=== PATIENT | male | born 1930 | race Caucasian/White ===

== ENCOUNTER 2016-06-27 20:12 | Emergency (ER) | payer MEDICARE ==
[~2016-06-27] VITALS: Ht 179.1 cm; Wt 88.4 kg
[~2016-06-27 20:12] MED LIST: ASPI325T PO; CLOP75 PO; FENO145T2 PO; GLUC10TA3 PO; HYDR-3129 PO; ISOS30TA3 PO; LISI-357 PO; METO50TA PO; OCUV PO; OMEP20CA5 PO; ROSU20 PO; STOO100C PO; TAMS0.4C67 PO; TRAD5TAB PO; VENL-37 PO; [UNRECOGNIZED DRUG - CODE] PO
[2016-06-27 20:21] VITALS: BP 110/75; PULSE 87; RESP 16; TEMP 97.8; O2SAT 95
[2016-06-27] MEDS ORDERED: TAMS0.4C4 PO (21:25)
[2016-06-27] MEDS ORDERED: VENL37.5 PO (21:25)
[2016-06-27] MEDS ORDERED: ENTA1TAB PO (21:25)
[2016-06-27] MEDS ORDERED: SINE25TA PO (21:25)
[2016-06-27] MEDS ORDERED: ASPI325T PO (21:25)
[2016-06-27] MEDS ORDERED: PRIL20CA9 PO (21:25)
[2016-06-27] MEDS ORDERED: ROSU20 PO (21:25)
[2016-06-27] MEDS ORDERED: PLAV75TA29 PO (21:25)
[2016-06-27] MEDS ORDERED: GLIP10TA6 PO (21:25)
[2016-06-27] MEDS ORDERED: ISOS30TA3 PO (21:25)
[2016-06-27] MEDS ORDERED: TRAD5TAB PO (21:25)
[2016-06-27] MEDS ORDERED: METO50TA PO (21:25)
[2016-06-27] MEDS ORDERED: LISI-519 PO (21:25)
[2016-06-27] MEDS ORDERED: FENO145T2 PO (21:25)
[2016-06-27] MEDS ORDERED: PERC5TAB12 PO (21:28)
[2016-06-27] MEDS ORDERED: LIDOCAINE HCL 5% PATCH T-DERMAL ONE (21:30)
[2016-06-27] MEDS ORDERED: LIDO5DIS35 TOPICAL (21:47)
--- NOTE | 2016-06-27 21:48 | PD ---
HPI Chief Complaint: Back/ Neck Pain or Injury Time Seen by Provider: 21:29 Travel History International Travel<30 days: No Contact w/Intl Traveler<30days: No Traveled to known affect area: No History of Present Illness HPI Patient is an 86-year-old male presenting to emergency department for evaluation of right sciatica pain. Patient states this has been ongoing for 2 weeks since he laid flat on his pool deck with his legs in the pool, when he went to get up he pulled his back. Since that time the pain radiates down the back of his right leg. He has not been to his primary doctor for this problem. He denies any other complaints at this time. He has been taking acetaminophen occasionally throughout the course of the last 2 weeks with little improvement in his symptoms. Patient denies any weakness in his legs, no bladder or bowel continence or saddle paresthesia. PFSH Past Medical History Hx Anticoagulant Therapy: Yes (PLAVIX) Arthritis: No Asthma: No Autoimmune Disease: No Heart Rhythm Problems: No Cancer: No Cardiac Catheterization: Yes Cardiovascular Problems: Yes ([place], VALVE REPLACEMENT/ CABG) High Cholesterol: Yes Chemotherapy: No Chest Pain: Yes Congestive Heart Failure: Yes COPD: Yes Cerebrovascular Accident: No Coronary Artery Disease: Yes Diabetes: Yes Patient Takes Glucophage: No Diminished Hearing: Yes ([place]) Endocrine: Yes Gastrointestinal Disorders: Yes (GERD) GERD: No Genitourinary: Yes Headaches: No Hiatal Hernia: No Hypertension: Yes Immune Disorder: No Kidney Stones: No Medical other: No Musculoskeletal: Yes ( DDD) Neurologic: Yes (VERTIGO) Psychiatric: No Reproductive: No Respiratory: Yes (MESOTHELIOMA/ THORACENTESIS (X3), SOB) Migraines: No Radiation Therapy: No Renal Failure: No Seizures: No Sleep Apnea: Yes Thyroid Disease: No Ulcer: No Past Surgical History Abdominal Surgery: No AICD: No Body Medical Devices: BOVINE VALVE Cardiac Surgery: Yes (TRIPLE BYPASS, AORTIC VALVE REPLACEMENT 2010) Coronary Artery Bypass Graft: Yes (3 VESSELS) Ear Surgery: No Endocrine Surgery: No Eye Surgery: No Genitourinary Surgery: No Gynecologic Surgery: No Joint Replacement: No Neurologic Surgery: No Oral Surgery: Yes (TONSILLECTOMY, TOOTH INPLANT 2011) Pacemaker: No Thoracic Surgery: No Other Surgery: Yes Social History Alcohol Use: No Tobacco Use: No Substance Use: No Allergies-Medications (Allergen,Severity, Reaction): Coded Allergies: No Known Allergies (Unverified , 06/27/16) Reported Meds & Prescriptions Reported Meds & Active Scripts Active Percocet (Oxycodone-Acetaminophen) 5-325 mg Tab 1 Tab PO Q6H PRN Reported Entacapone 200 Mg Tab 200 Mg PO TID administered concomitantly with each levodopa/carbidopa dose Sinemet (Carbidopa-Levodopa) 25-100 Mg Tab 1 Tab PO Q8HR Tradjenta (Linagliptin) 5 Mg Tab 5 Mg PO DAILY Lisinopril 5 Mg Tab 5 Mg PO DAILY Tamsulosin (Tamsulosin HCl) 0.4 Mg Cap 0.4 Mg PO HS Crestor (Rosuvastatin Calcium) 20 Mg Tab 20 Mg PO DAILY Aspirin 325 Mg Tab 325 Mg PO DAILY Isosorbide Mononitrate ER (Isosorbide Mononitrate) 30 Mg Ezekiel 30 Mg PO DAILY Effexor (Venlafaxine HCl) 37.5 Mg Tab 37.5 Mg PO Q12H Metoprolol Tartrate 50 Mg Tab 50 Mg PO BID Plavix (Clopidogrel Bisulfate) 75 Mg Tab 75 Mg PO DAILY Glipizide 10 Mg Tab 10 Mg PO BIDAC Take 30 minutes before a meal Fenofibrate 145 Mg Tab 145 Mg PO DAILY Prilosec (Omeprazole) 20 Mg Cap 20 Mg PO DAILY Review of Systems Except as stated in HPI: all other systems reviewed are Neg Musculoskeletal: Positive: Myalgias, Cramping, Pain Physical Exam Narrative GENERAL: Well-developed, well-nourished, alert elderly gentleman. Resting comfortably in no acute distress. SKIN: Focused skin assessment warm/dry. HEAD: Atraumatic. Normocephalic. EYES: Pupils equal and round. No scleral icterus. No injection or drainage. ENT: No nasal bleeding or discharge. Mucous membranes pink and moist. NECK: Trachea midline. No JVD. CARDIOVASCULAR: Regular rate and rhythm. No murmur appreciated. RESPIRATORY: No accessory muscle use. Clear to auscultation. Breath sounds equal bilaterally. GASTROINTESTINAL: Abdomen soft, non-tender, nondistended. Hepatic and splenic margins not palpable. MUSCULOSKELETAL: No obvious deformities. No clubbing. No cyanosis. Tenderness to palpation over right SI joint, 5/5 muscle strength in bilateral lower extremities. Patient is neurovascularly intact. There is mild edema noted to the right foot, this is chronic per 's report. NEUROLOGICAL: Awake and alert. No obvious cranial nerve deficits. Motor grossly within normal limits. Normal speech. PSYCHIATRIC: Appropriate mood and affect; insight and judgment normal. Data Data Last Documented VS Vital Signs Date Time Temp Pulse Resp B/P Pulse Ox O2 Delivery O2 Flow Rate FiO2 06/27/16 20:21 97.8 87 16 110/75 95 Room Air Orders Lidocaine 5% Patch.12 Hr (Lidoderm 5% Pa (06/27/16 21:30) MDM Medical Decision Making Medical Screen Exam Complete: Yes Emergency Medical Condition: Yes Interpretation(s) Vital Signs Date Time Temp Pulse Resp B/P Pulse Ox O2 Delivery O2 Flow Rate FiO2 06/27/16 20:21 97.8 87 16 110/75 95 Room Air Differential Diagnosis Sprain versus strain versus sciatica versus discogenic pain versus other Narrative Course Patient is an 86-year-old male presenting to the emergency department for evaluation of right lower back pain. Physical examination is most consistent with sciatica. Patient is encouraged to apply warm moist heat to affected areas , he'll be given a prescription for Lidoderm patches and a short course of oral pain medications. He is encouraged follow-up Dr. Preston his primary care provider. Discussed with patient and possible physical therapy referral. He was encouraged to continue applying warm moist heat to the affected area. He was advised to avoid bed rest. He was encouraged to return to emergency department for any new or worsening symptoms. Patient verbalized understanding of these instructions. Patient is stable for discharge. Diagnosis Primary Impression: Sciatica Qualified Code: M54.31 - Sciatica of right side Referrals: Flavia Preston MD 2 days Patient Instructions: General Instructions, Sciatica (ED) Additional Instructions: Follow-up with Dr. Preston Take medications as directed Do not drive or operate machinery while taking narcotic pain medication Apply warm moist heat to the affected area Return to emergency department for any new or worsening symptoms Med/Other Pt SpecificInfo: Prescription(s) given Scripts Lidocaine Patch 12 HR (Lidoderm Patch 12 HR)5% Patch1 Patch TOPICAL DAILY PRN ( PAIN) 14 Days Ref 0 Remove patch after 12 hours Prov:Ann Liang 06/27/16 Oxycodone-Acetaminophen (Percocet)5-325 mg Tab1 Tab PO Q6H PRN (PAIN) #10 TAB Ref 0 Prov:Alona Vo MD 06/27/16 Disposition: 01 DISCHARGE HOME Condition: Stable Ann Liang Jun 27, 2016 21:48
[2016-07-06] MEDS ORDERED: MEDR4PAK PO (10:09)
[2016-07-06] MEDS ORDERED: NEUR300C PO (10:10)
[2016-07-11] MEDS ORDERED: MEDR4PAK PO (16:27)
[2016-07-13] MEDS ORDERED: OS-CTAB PO (14:02)
[2016-08-08] MEDS ORDERED: GABA300C5 PO (12:03)
[2016-08-14] MEDS ORDERED: HYDR-3533 PO (12:40)
== END 2016-06-27 21:55 | disposition home or self-care (01) ==
LOC: PHEFT 20:12
DX: M54.31 Sciatica, right side (principal); E11.9 Type 2 diabetes mellitus without complications; I10 Essential (primary) hypertension; E78.00 Pure hypercholesterolemia, unspecified; H91.90 Unspecified hearing loss, unspecified ear; Z79.01 Long term (current) use of anticoagulants; Z79.84 Long term (current) use of oral hypoglycemic drugs; Z86.79 Personal history of other diseases of the circulatory system; Z87.09 Personal history of other diseases of the respiratory system; Z87.19 Personal history of other diseases of the digestive system; Z87.448 Personal history of other diseases of urinary system; Z86.69 Personal history of other diseases of the nervous system and sense organs; Z87.39 Personal history of other diseases of the musculoskeletal system and connective tissue
CPT/HCPCS: 99283

== ENCOUNTER 2016-06-30 17:06 | Emergency (ER) | payer MEDICARE ==
[~2016-06-30] VITALS: Ht 179.1 cm; Wt 92.0 kg
[~2016-06-30 17:06] MED LIST changes: -CLOP75 PO; +ENTA1TAB PO; +GLIP10TA6 PO; -GLUC10TA3 PO; -HYDR-3129 PO; +LIDO5DIS35 TOPICAL; -LISI-357 PO; +LISI-519 PO; -OCUV PO; -OMEP20CA5 PO; +PERC5TAB12 PO; +PLAV75TA29 PO; +PRIL20CA9 PO; +SINE25TA PO; -STOO100C PO; +TAMS0.4C4 PO; -TAMS0.4C67 PO; -VENL-37 PO; +VENL37.5 PO; -[UNRECOGNIZED DRUG - CODE] PO
[2016-06-30 17:28] VITALS: BP 100/61; PULSE 62; RESP 20; TEMP 98.3; O2SAT 94
[2016-06-30] MEDS ORDERED: oxyCODONE/ACETAMINOPHEN 5 MG/325 MG TAB PO ONE (17:45)
[2016-06-30] MEDS ORDERED: CALC500T35 PO (18:00)
[2016-06-30] MEDS ORDERED: OCUVTAB PO (18:00)
[2016-06-30] MEDS ORDERED: COLA100C3 PO (18:00)
--- NOTE | 2016-06-30 18:51 | RADRPT ---
EXAM DATE/TIME: 06/30/2016 18:11 [facility] COMPARISON: No previous studies available for comparison. INDICATIONS : Lower back pain starting today, pain shooting down right leg. RADIATION DOSE: 35.86 CTDIvol (mGy) MEDICAL HISTORY : Hypertension. Diabetes mellitus type 2. Cardiovascular disease SURGICAL HISTORY : None. ENCOUNTER: Initial ACUITY: 1 day PAIN SCALE: 10/10 LOCATION: lower back TECHNIQUE: Volumetric scanning of the lumbar spine was performed. Multiplanar reconstructions in the sagittal, coronal and oblique axial planes were performed. Using automated exposure control and adjustment of the mA and/or kV according to patient size, radiation dose was kept as low as reasonably achievable t o obtain optimal diagnostic quality images. FINDINGS: No significant compression deformity is seen. There is unilateral spondylolysis on the left at L 3 level. Chronic atherosclerotic calcifications are seen without any definite aneurysmal dilatations for technique. Left common iliac stent is identified. T12-L1: There is no evidence for any significant compromise to the thecal sac, or the exiting nerve roots. N o appreciable thecal sac stenosis is seen. The neural foramina and lateral recess appear patent bila terally. L1-L2: There is no evidence for any significant compromise to the thecal sac, or the exiting nerve roots. N o appreciable thecal sac stenosis is seen. The neural foramina and lateral recess appear patent bila terally. L2-L3: Slight degenerative changes are seen within the disc space and facets. There is asymmetrical bulging disc towards the left with extension into the left neural foramen impinging the exiting nerve root to a slight degree. Slight lateral recess compromise is seen on the left due to hypertrophic changes an d bulging disc. Slight bulging disc and hypertrophic changes are seen with indentation on the thecal sac and no significant compromise to the thecal sac. L3-L4: Moderate degenerative changes are seen within the disc space and facets. There is moderate neural for osman compromise on the left due to asymmetrical bulging disc and hypertrophic changes. There is evid ence for prior laminectomy on the left side at this level. Slight bulging disc and hypertrophic drummond es are seen with indentation on the thecal sac and no significant compromise to the thecal sac. L4-L5: Slight degenerative changes are seen within the disc space and facets. There is slight neural foramin a compromise bilaterally due to bulging disc and hypertrophic changes. Slight overall thecal sac sten osis is seen due to central disc/osteophyte complex and hypertrophic changes. There is evidence for p rior laminectomy on the left. L5-S1: Slight degenerative changes are seen within the disc space and facets. There is bulging disc and hype rtrophic change protruding into bilateral lateral recess without any significant compromise to the ex iting nerve roots. Slight bulging disc and hypertrophic changes are seen with indentation on the thec al sac and no significant compromise to the thecal sac or the exiting nerve roots. CONCLUSION: 1. Unilateral spondylolysis left L3. 2. Neural foramina compromise left L3-L4 bilateral L4-5. 3. Lateral recess compromise left L2-3 and slight overall thecal sac stenosis L4-5. Kelly Higginbotham MD on June 30, 2016 at 18:43 Board Certified Radiologist. This report was verified electronically.
[2016-06-30 19:00] VITALS: BP 108/62; PULSE 67; RESP 18; O2SAT 96
--- NOTE | 2016-06-30 19:29 | PD ---
Physical Exam Narrative Received sign out from previous team to follow up CT results and reevaluate pt. 86yo M with PSH of lumbar spinal stenosis s/p surgery with Dr. Joshua presents to the ED with c/o 2-3 weeks of lumbar spine pain that radiates to the posterior right leg when he moves. States he has no pain without movement. Denies any recent trauma, fever, chest pain, sob, n/v, abdominal pain, focal weakness. Physical exam showed that he had reproducible sharp pain down posterior right leg when he lifts it. Sensation intact. No saddle anesthesia. Muscle strength equal and intact in all extremities. Pt was given 2 percocet by previous team and feels a little better. CT LS showed unilateral spondylolysis left L3. Neural foramina compromise left L3-L4 bilateral L4-L5. Lateral recess compromise left L2-3 and slight overall thecal sac stenosis L4- 5. Discussed with neurosurgeon program manager environmental planning Dr. Stokes and he states that pt can follow up as outpatient in the clinic and a medrol dosepak. Pt was just here for similar complaints. Pt still has percocet and advised pt to finish the percocet first and then take lortab as needed. Pt is resting comfortably with no complaint. Return precautions given. Data Data Last Documented VS Vital Signs Date Time Temp Pulse Resp B/P Pulse Ox O2 Delivery O2 Flow Rate FiO2 06/30/16 17:28 98.3 62 20 100/[address] Lumb Spine W/O Contrast (06/30/16 ) Oxycodone-Acetamin 5-325 Mg (Percocet (06/30/16 17:45) [facility] Supervised Visit with JOÃO: No Diagnosis Primary Impression: Spondylolysis of lumbar region Patient Instructions: General Instructions Departure Forms: Tests/Procedures Additional Instruction: Please follow up with your neurosurgeon Dr. Joshua as an outpatient. Return to the ED if symptoms worsen. Med/Other Pt SpecificInfo: Prescription(s) given Scripts Methylprednisolone Dosepak (Medrol Dosepak)4 Mg Dspk4 Mg PO DIRECTED #1 DSPK Ref 0 Per Pharmacist direction Prov:Dulce Maria Mckeon DO 06/30/16 Hydrocodone-Acetaminophen (Lortab)5-325 Mg Tab1 Tab PO Q6H PRN (PAIN) #10 TAB Ref 0 Prov:Dulce Maria Mckeon DO 06/30/16 Dulce Maria Mckeon DO Jun 30, 2016 19:29
[2016-06-30] MEDS ORDERED: HYDR-3533 PO (19:33)
[2016-06-30] MEDS ORDERED: MEDR4PAK PO (19:55)
--- NOTE | 2016-06-30 19:56 | PD ---
HPI Chief Complaint: Back/ Neck Pain or Injury Time Seen by Provider: 19:25 Travel History International Travel<30 days: No Contact w/Intl Traveler<30days: No Traveled to known affect area: No History of Present Illness HPI Patient 86-year-old male presents emergency department for evaluation of 2-3 weeks worth of low back pain. Patient states he has a history of spinal stenosis with surgery in the past. Patient states the pain is now starting to down his right leg and becomes extremely painful when he tries to walk. Denies any saddle anesthesia denies any dysuria denies any difficulty stooling. He states he is able to walk but it's very painful. Denies any injury. Denies any other pain denies any thoracic pain chest pain and abdomen pain head pain neck pain. PFSH Past Medical History Hx Anticoagulant Therapy: Yes (PLAVIX) Arthritis: No Asthma: No Autoimmune Disease: No Heart Rhythm Problems: No Cancer: No Cardiac Catheterization: Yes Cardiovascular Problems: Yes ([place], VALVE REPLACEMENT/ CABG) High Cholesterol: Yes Chemotherapy: No Chest Pain: Yes Congestive Heart Failure: Yes COPD: Yes Cerebrovascular Accident: No Coronary Artery Disease: Yes Diabetes: Yes Patient Takes Glucophage: No Diminished Hearing: Yes ([place]) Endocrine: Yes Gastrointestinal Disorders: Yes (GERD) GERD: No Genitourinary: Yes Headaches: No Hiatal Hernia: No Hypertension: Yes Immune Disorder: No Kidney Stones: No Musculoskeletal: Yes ( DDD) Neurologic: Yes (VERTIGO) Psychiatric: No Reproductive: No Respiratory: Yes (MESOTHELIOMA/ THORACENTESIS (X3), SOB) Migraines: No Radiation Therapy: No Renal Failure: No Seizures: No Sleep Apnea: Yes Thyroid Disease: No Ulcer: No Tetanus Vaccination: > 5 Years Past Surgical History Abdominal Surgery: No AICD: No Body Medical Devices: BOVINE VALVE Cardiac Surgery: Yes (TRIPLE BYPASS, AORTIC VALVE REPLACEMENT 2010) Coronary Artery Bypass Graft: Yes (3 VESSELS) Ear Surgery: No Endocrine Surgery: No Eye Surgery: No Genitourinary Surgery: No Gynecologic Surgery: No Joint Replacement: No Neurologic Surgery: No Oral Surgery: Yes (TONSILLECTOMY, TOOTH INPLANT 2011) Pacemaker: No Thoracic Surgery: No Other Surgery: Yes Social History Alcohol Use: No Tobacco Use: No Substance Use: No Allergies-Medications (Allergen,Severity, Reaction): Coded Allergies: No Known Allergies (Unverified , 06/27/16) Reported Meds & Prescriptions Reported Meds & Active Scripts Active Lortab (Hydrocodone-Acetaminophen) 5-325 Mg Tab 1 Tab PO Q6H PRN Lidoderm Patch 12 HR (Lidocaine) 5% Patch 1 Patch TOPICAL DAILY PRN 14 Days Remove patch after 12 hours Percocet (Oxycodone-Acetaminophen) 5-325 mg Tab 1 Tab PO Q6H PRN Reported Ocuvite (Multiple Vitamins W/ Minerals) 1 Tab 1 Tab PO DAILY Colace (Docusate Sodium) 100 Mg Cap 100 Mg PO BID Calcium (Oyster Shell) Unknown Strength Tab 1 Tab PO BID Entacapone 200 Mg Tab 200 Mg PO TID administered concomitantly with each levodopa/carbidopa dose Sinemet (Carbidopa-Levodopa) 25-100 Mg Tab 1 Tab PO Q8HR Tradjenta (Linagliptin) 5 Mg Tab 5 Mg PO DAILY Lisinopril 5 Mg Tab 5 Mg PO DAILY Tamsulosin (Tamsulosin HCl) 0.4 Mg Cap 0.4 Mg PO HS Crestor (Rosuvastatin Calcium) 20 Mg Tab 20 Mg PO DAILY Aspirin 325 Mg Tab 325 Mg PO DAILY Isosorbide Mononitrate ER (Isosorbide Mononitrate) 30 Mg Ezekiel 30 Mg PO DAILY Effexor (Venlafaxine HCl) 37.5 Mg Tab 37.5 Mg PO Q12H Metoprolol Tartrate 50 Mg Tab 50 Mg PO BID Plavix (Clopidogrel Bisulfate) 75 Mg Tab 75 Mg PO DAILY Glipizide 10 Mg Tab 10 Mg PO BIDAC Take 30 minutes before a meal Fenofibrate 145 Mg Tab 145 Mg PO DAILY Prilosec (Omeprazole) 20 Mg Cap 20 Mg PO DAILY Review of Systems Except as stated in HPI: all other systems reviewed are Neg Physical Exam Narrative GENERAL: Well-developed well-nourished no apparent distress SKIN: Focused skin assessment warm/dry. HEAD: Atraumatic. Normocephalic. EYES: Pupils equal and round. No scleral icterus. No injection or drainage. ENT: No nasal bleeding or discharge. Mucous membranes pink and moist. NECK: Trachea midline. No JVD. CARDIOVASCULAR: Regular rate and rhythm. No murmur appreciated. RESPIRATORY: No accessory muscle use. Clear to auscultation. Breath sounds equal bilaterally. GASTROINTESTINAL: Abdomen soft, non-tender, nondistended. Hepatic and splenic margins not palpable. MUSCULOSKELETAL: No obvious deformities. No clubbing. No cyanosis. No edema. NEUROLOGICAL: Awake and alert. Cranial nerves II through XII are grossly intact and nonfocal, 5 out of 5 strength in all 4 extremity's, cerebellar testing normal, DTRs are 2+ in bilateral lower extremities at the patella. Sensation is intact at over L4-L5 and S1 nerve roots Bilaterally equal. PSYCHIATRIC: Appropriate mood and affect; insight and judgment normal. Data Data Last Documented VS Vital Signs Date Time Temp Pulse Resp B/P Pulse Ox O2 Delivery O2 Flow Rate FiO2 06/30/16 17:28 98.3 62 20 100/[address] Lumb Spine W/O Contrast (06/30/16 ) Oxycodone-Acetamin 5-325 Mg (Percocet (06/30/16 17:45) MDM Medical Decision Making Medical Screen Exam Complete: Yes Emergency Medical Condition: Yes Differential Diagnosis Occult fracture, spinal stenosis, radiculopathy Narrative Course Patient was roomed in emergency department, CT scan was ordered of the lumbar spine, discussed with Dr. Mckeon to follow-up CAT scan results and disposition properly. Diagnosis Primary Impression: Spondylolysis of lumbar region Patient Instructions: General Instructions Departure Forms: Tests/Procedures Additional Instructions: Please follow up with your neurosurgeon Dr. Joshua as an outpatient. Return to the ED if symptoms worsen. Scripts Hydrocodone-Acetaminophen (Lortab)5-325 Mg Tab1 Tab PO Q6H PRN (PAIN) #10 TAB Ref 0 Prov:Dulce Maria Mckeon DO 06/30/16 Bert Childs MD Jun 30, 2016 19:56
[2016-07-06] MEDS ORDERED: MEDR4PAK PO (10:09)
[2016-07-06] MEDS ORDERED: NEUR300C PO (10:10)
[2016-07-11] MEDS ORDERED: MEDR4PAK PO (16:27)
[2016-07-13] MEDS ORDERED: OS-CTAB PO (14:02)
[2016-08-08] MEDS ORDERED: GABA300C5 PO (12:03)
[2016-08-14] MEDS ORDERED: HYDR-3533 PO (12:40)
== END 2016-06-30 21:26 | disposition home or self-care (01) ==
LOC: NEPE 17:06
DX: M43.06 Spondylolysis, lumbar region (principal); E11.9 Type 2 diabetes mellitus without complications; E78.00 Pure hypercholesterolemia, unspecified; G47.30 Sleep apnea, unspecified; Z79.01 Long term (current) use of anticoagulants; Z79.84 Long term (current) use of oral hypoglycemic drugs; Z87.39 Personal history of other diseases of the musculoskeletal system and connective tissue; Z86.79 Personal history of other diseases of the circulatory system; Z87.09 Personal history of other diseases of the respiratory system; Z87.19 Personal history of other diseases of the digestive system; Z86.69 Personal history of other diseases of the nervous system and sense organs
CPT/HCPCS: 72131

== ENCOUNTER 2016-07-16 06:13 | Inpatient (IN) | payer MEDICARE ==
--- NOTE | 2016-07-14 12:19 | MH ---
cc: JONATAN UNDERWOOD M.D., ROHIT K. M.D. DATE OF ADMISSION: 07/16/2016 ADMITTING DIAGNOSIS: Herniated for this pulposus lumbar spine. HISTORY OF PRESENT ILLNESS This is an 86-year-old male who is known to our practice. He has previously undergone a L3, L4 and L5 decompressive laminectomy with medial facetectomy on May 19, 2015. He did well after surgery and was pleased with the results. Approximately one month ago he was sitting on the edge of his pool with his feet in the water, he went to get up and went to get up and felt severe pain radiating into his right buttocks and posterior leg. He was seen in the emergency room on 06/28 and 06/30 by emergency room provides no apparent disease his acute pain was treated and he was discharged home with instructions to follow up with neurosurgery. He states his pain has progressively gotten worse over the last two to three days and last week he developed a foot drop. His pain currently is in the right buttocks, posterior thigh and posterior calf and anterior jones. He is ambulating with a walker but fell the other day in his bedroom. He states that he has a difficult time with coordination, walking given his right foot drop. He uses a walker on a chronic basis because he has fell. Lightheadedness and dizziness and he also suffers from Parkinson's disease with tremors. He is on aspirin and Plavix. PAST MEDICAL HISTORY Significant for diabetes mellitus. Sleep apnea. Hypertension. Coronary artery disease status post triple bypass and aortic valve replacement. Carpal tunnel surgery in 2000. 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 CURRENT MEDICATIONS 1. Gabapentin 300 mg p.o. b.i.d. 1. Medrol Dosepak. 2. Lortab 5/325 q.6 h. Pain. 3. Ocuvite p.o. daily. 4. Colace 100 mg p.o. b.i.d. 5. Calcium p.o. b.i.d. 6. Sinemet 25/100 p.o. q.8 h. 7. Tradjenta 5 mg p.o. daily. 8. Lisinopril 5 mg p.o. daily. 9. Flomax 0.4 mg p.o. q.h.s. 10. Crestor 24 20 mg p.o. daily. 11. Aspirin 325 mg p.o. daily 12. Caprone 200 mg p.o. t.i.d. 13. Isosorbide mononitrate extended release 30 mg p.o. daily. 14. Effexor 37.5 mg p.o. q.12 h. 15. Metoprolol tartrate 50 mg p.o. b.i.d. 16. Plavix 75 mg p.o. daily. This was placed on hold prior to surgical intervention. 17. Glipizide 10 mg p.o. b.i.d. 18. Fenofibrate 145 mg p.o. daily. 19. Prilosec 20 mg p.o. daily. ALLERGIES NO KNOWN DRUG ALLERGIES. FAMILY HISTORY His mother is at 79 year's old had heart attack in his father is at 73 year's old stroke. He has a sister who is alive at 79, another sister who is alive 71, had history of heart disease and is diabetic. He has a brother who is at 66 year's old of heart attack. 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 He is . He has five children. He quit smoking in 1979. He does not drink alcohol. REVIEW OF SYSTEMS CONSTITUTIONAL: Denies any fever or chills. EAR, NOSE, AND THROAT: No pharyngitis, exudates or bloody drainage from his nose. CARDIOVASCULAR SYSTEM: Denies any chest pain or palpitations RESPIRATORY: No cough, positive for some shortness of breath acute. GENITOURINARY: No dysuria hematuria. MUSCULSOEKELETAL: Positive for low back pain and leg pain. SKIN: No rashes or pruritus. NEUROLOGIC: No difficulty with speech or memory. He is hard of hearing. GASTROINTESTINAL: No nausea but abdominal pain. PSYCHIATRIC: No anxiety or depression symptoms. ENDOCRINE: No polyuria, polydipsia. HEMATOLOGIC: Positive for easy bruising, bleeding tendencies related to his Plavix and aspirin use. PHYSICAL EXAMINATION: HEAD, EYES, EARS, NOSE, AND THROAT: Normocephalic, atraumatic. NECK: Supple. No carotid bruits heard on auscultation. LUNGS: Clear to auscultation bilaterally. HEART: The heart is regular rate and rhythm, Normal S1, S2. ABDOMEN: Soft, nontender. Positive bowel sounds. Skin: Reveals no cyanosis or erythema. His lumbar incision is well-healed without any signs of complication. EXTREMITIES: Also he has her right foot drop 0/5 dorsiflexion and 03/08 plantar flexion strength otherwise is 5/5. The lower extremities. He ambulates with a walker as difficulty with coordination of his right leg given his foot drop. NEUROLOGIC: He is awake, alert, oriented. Cranial nerves II-XII reveal he has very [id number], otherwise intact. Speech is fluent. Comprehension is good. He has numbness in the right posterior leg and dorsal aspect of the foot but intact in the left leg. DATA REVIEW: We reviewed the MRI of the lumbar spine from July 07, 2016 which reveals a large L4-L5 disk herniation eccentric to the right side with severe spinal stenosis. There is chronic L2-L3 disk degeneration with disk protrusion eccentric to the left side which is stable from previous MRI scan. IMPRESSION A 86-year-old male with a 1-month history of low back pain with right L5-S1 radiculopathy and associated right foot drop. He has a large L4-L5 disk herniation with severe spinal stenosis. He has chronic L1/2. Disc degeneration protrusion of the left side. PLAN Given his profile weakness in particular the complete foot drop a very limited ambulatory status and even a walker. We have recommended a right L4, L6 and L5 hemilaminotomy with microdiskectomy. He is on chronic aspirin and Plavix therapy and his Plavix was placed on hold prior to surgical intervention. We have discussed continuing with the exercises to help strengthen his muscles in his leg to prevent further deconditioning. We also discussed the option of conservative measures with physical therapy and pain management along with the risks and the patient and his are requesting that I proceed with surgery. We discussed that he will likely also require rehab placement after surgery since his cannot take care of him at home no apparent disease he is very limited in his ambulatory status given his foot drop. He has had several falls at home. The procedure as well as the risk benefit of the recovery time were split in great detail with the patient and his . We have discussed the risks along with surgery include but not limited to bleeding, infection, muscle weakness voice hoarseness, difficulty swallowing, heart attack, stroke blood clots, among others. The patient states that he understands the procedure as well as the risks involved and is requesting that we proceed and he was therefore scheduled accordingly. John Joshua MD DICTATED BY: NGOC Carrillo/curtis /11:12 AM /11:50 AM
[~2016-07-16] VITALS: Ht 177.8 cm; Wt 89.5 kg
[2016-07-16] VITALS (8 sets, daily range): BP systolic 107–131; BP diastolic 58–65; PULSE 53–82; RESP 14–21; TEMP 97.6–98.3; O2SAT 97–100
[~2016-07-16 06:13] MED LIST changes: +COLA100C3 PO; -LIDO5DIS35 TOPICAL; +MEDR4PAK PO; +NEUR300C PO; +OCUVTAB PO; +OS-CTAB PO; -PERC5TAB12 PO
[2016-07-16] MEDS ORDERED: POVIDONE IODINE 5% (ANTISEPSIS KIT) 4 APPLICATIONS EACH NARE PRN (06:45)
[2016-07-16] MEDS ORDERED: INSULIN HUMAN REGULAR 1,000 UNITS/10 ML VIAL SQ PRN (06:45)
[2016-07-16] MEDS ORDERED: CHLORHEXIDINE GLUCONATE 2 % 1 PACK (2 CLOTHS) TOPICAL PRN (06:45)
[2016-07-16] MEDS ORDERED: SODIUM CHLOR 0.9% 1000 ML INJ 1,000 ML IV SCH (06:45)
[2016-07-16] MEDS ORDERED: LACTATED RINGER'S 1000 ML IV PRN (06:45)
[2016-07-16] MEDS ORDERED: SODIUM CHLORID 0.9% 500 ML IV PRN (06:45)
[2016-07-16] MEDS ORDERED: VANCOMYCIN HCL 1000 MG ON-CALL/NS 250 ML IV SCH ×2 (06:45)
[2016-07-16] MEDS ORDERED: METOPROLOL TARTRATE 25 MG TAB PO PRN (06:45)
[2016-07-16] MEDS ORDERED: MORPHINE SULFATE 4 MG/ML INJ ONE (06:57)
[2016-07-16] MEDS ORDERED: fentaNYL CITRATE 250 MCG/5 ML AMP ONE (06:58)
[2016-07-16] MEDS ORDERED: ACETAMINOPHEN 1000 MG/100 ML VIAL IV ONE (06:58)
[2016-07-16] MEDS ORDERED: VANCOMYCIN HCL 1000 MG VIAL ONE (07:49)
[2016-07-16] MEDS ORDERED: GELFOAM SIZE 100 ONE (07:50)
[2016-07-16] MEDS ORDERED: THROMBIN (TOPICAL) 5,000 UNIT VIAL ONE (07:50)
[2016-07-16] MEDS ORDERED: methylPREDNISolone ACETATE 40 MG/ML VIAL ONE (07:50)
[2016-07-16] MEDS ORDERED: BUPIVACAINE/EPINEPHRINE 0.5% 50 ML VIAL ONE (07:50)
[2016-07-16] MEDS ORDERED: DEXAMETHASONE SOD PHOS 4 MG/ML VIAL ONE (08:11)
[2016-07-16] MEDS ORDERED: FAMOTIDINE 20 MG/2 ML VIAL ONE (08:11)
[2016-07-16] MEDS ORDERED: MIDAZOLAM HCL 2 MG/2 ML VIAL ONE (08:11)
[2016-07-16] MEDS ORDERED: SUGAMMADEX SODIUM 200 MG/2 ML VIAL IV PUSH ONE ×4 (09:03→12:00)
[2016-07-16] MEDS ORDERED: ACETAMINOPHEN 325 MG TAB PO PRN (10:00)
[2016-07-16] MEDS ORDERED: MAGNESIUM SULFATE INJ 2 GM in SODIUM CHLORIDE 0.9% INJ 100 ML IV PRN (10:00)
[2016-07-16] MEDS ORDERED: RESP: ALBUTEROL 2.5 MG/3 ML NEB (PRN) NEB (10:00)
[2016-07-16] MEDS ORDERED: POTASSIUM CHLOR 20 MEQ PREMIX 100 ML IV PRN (10:00)
[2016-07-16] MEDS ORDERED: DOPamine INJ PREMIX 500 ML IV SCH (10:00)
[2016-07-16] MEDS ORDERED: ONDANSETRON HCL 4 MG/2 ML VIAL IV PRN (10:00)
[2016-07-16] MEDS ORDERED: CALCIUM GLUCONATE INJ 1 GM in SODIUM CHLORIDE 0.9% INJ 100 ML IV PRN (10:00)
[2016-07-16] MEDS ORDERED: LABETALOL HCL 100 MG/20 ML VIAL IV PRN (10:00)
[2016-07-16] MEDS ORDERED: MAGNESIUM HYDROXIDE SUSP 30 ML CUP PO PRN (10:00)
[2016-07-16] MEDS ORDERED: ALUMINUM/MAGNESIUM/SIMETH 30 ML CUP PO PRN (10:00)
[2016-07-16] MEDS ORDERED: cloNIDine HCL 0.1 MG TAB PO PRN (10:00)
[2016-07-16] MEDS ORDERED: MENTHOL LOZENGE BUCCAL PRN (10:00)
[2016-07-16] MEDS ORDERED: TERBUTALINE INJ 1 MG/ML AMP SQ PRN (10:00)
[2016-07-16] MEDS ORDERED: SODIUM CHLORIDE 0.9% FLUSH 10 ML FLUSH IV FLUSH PRN (10:00)
[2016-07-16] MEDS ORDERED: MORPHINE SULFATE 4 MG/ML INJ IV PRN (10:00)
[2016-07-16] MEDS ORDERED: niCARdipine INJ 25 MG in SODIUM CHLOR 0.9% 250 ML INJ 250 ML IV SCH (10:00)
[2016-07-16] MEDS ORDERED: DEXTROSE 50% IN WATER 50 ML VIAL(D50) IV PUSH PRN (10:15)
[2016-07-16] MEDS ORDERED: GLUCAGON 1 MG/ML VIAL OTHER PRN (10:15)
[2016-07-16 10:35] LABS: ANION GAP 8 MEQ/L (5-15); BICARBONATE 27.4 MEQ/L (21.0-32.0); BLOOD UREA NITROGEN 35 MG/DL (7-18); CHLORIDE 105 MEQ/L (98-107); GLOMERULAR FILTRATION RATE 34 ML/MIN (>89); MAGNESIUM 1.3 MG/DL (1.5-2.5); POTASSIUM 4.1 MEQ/L (3.5-5.1); SODIUM (NA) 140 MEQ/L (136-145)
[2016-07-16 10:47] LABS: CREATINE KINASE 83 U/L (39-308)
--- NOTE | 2016-07-16 10:48 | HHI.NSPN ---
Exam Results Vital Signs Date Time Temp Pulse Resp B/P Pulse Ox O2 Delivery O2 Flow Rate FiO2 07/16/16 09:45 97.6 59 16 101/55 99 Nasal Cannula 3 Lab, Micro, Other Results Laboratory Tests Test 07/16/16 09:56 Sodium Level 140 Potassium Level 4.1 Chloride Level 105 Carbon Dioxide Level 27.4 Anion Gap 8 Blood Urea Nitrogen 35 Creatinine 1.90 Estimat Glomerular Filtration 34 Rate Random Glucose 91 Calcium Level 8.4 Magnesium Level 1.3 Troponin I LESS THAN 0.02 Attending Statement Patient developed significant hypotension with induction of anesthesia. Anesthesiologist performed a transesophageal echo which revealed good LV function and discussed with his change agent. Surgery was canceled and subsequently his blood pressure has resumed to normal with discontinuation of anesthesia. His exam is at baseline. We'll observe in intensive care unit and consult his change agent Dr. Johnson who stated that he will see him today. John Joshua MD July 16, 2016 10:48
[2016-07-16] MEDS: VENLAFAXINE HCL XR 75 MG CAP PO SCH (11:00)
[2016-07-16] MEDS: INSULIN NovoLIN REGULAR SUPPLEMENTAL SCALE SQ SCH ×3 (11:00→23:07)
[2016-07-16] MEDS: ACETAMINOPHEN/HYDROcodone 325 MG/10 MG TAB PO PRN (11:36)
[2016-07-16] MEDS ORDERED: SODIUM CHLORID 0.9% 500 ML INJ 500 ML IV ONE ×2 (12:00→14:00)
[2016-07-16] MEDS ORDERED: PHENYLEPH/NS 1000 MCG/10 ML SYR IV ONE (12:00)
[2016-07-16] MEDS ORDERED: LACTATED RINGER'S 1000 ML INJ 1,000 ML IV ONE (12:00)
[2016-07-16] MEDS ORDERED: PROPOFOL 200 MG/20 ML AMP IV ONE (12:00)
[2016-07-16] MEDS ORDERED: ePHEDrine/NS 25 MG/5 ML SYR IV ONE (12:00)
--- NOTE | 2016-07-16 12:16 | PD.CONS ---
[facility] Service Critical Care Medicine Consult Requested By Dr. Joshua Reason for Consult Hypotension, shock Primary Care Physician Flavia Preston MD History of Present Illness This is an 86-year-old male with past medical history significant for type 2 diabetes, hypertension, coronary artery disease, Parkinson's disease, status post AVR, CKD base line creat 1.9, who has previously undergone a L3, L4 and L5 decompressive laminectomy May 19, 2015. He presented to Dr. Joshua's office with progressively worsening radicular pain bilateral lower extremity and also recently developed a right foot drop. MRI done on July 07 showed large L4-L5 disc herniation with severe spinal stenosis. Patient was admitted to Dr. Joshua service on 07/13/16 for redo L4-L5 laminectomy and microdiscectomy. He is on aspirin and Plavix for CAD which was since held for anticipated surgery Today in the OR, patient developed significant hypotension with induction of anesthesia. Patient received ephedrine and epinephrine pushes due to profound hypotension, and was placed on dopamine at 5 mics per KG per minute. Anesthesiologist performed a transesophageal echo which revealed good LV function. His lumber sticker Dr. Johnson had been consulted. Surgery was canceled. I evaluated the patient in the ICU. He denies chest pain or dizziness. remains on Dopamine at 5. Review of Systems ROS Limitations: Other (as per HPI) Past Family Social History Allergies: Coded Allergies: No Known Allergies (Unverified , 07/16/16) Past Medical History Diabetes mellitus. Parkinson's disease. Sleep apnea. Hypertension. Coronary artery disease status post CABG, AVR Chronic kidney disease Past Surgical History Status post triple bypass and aortic valve replacement. Carpal tunnel surgery in 2000. Left leg vein vein occlusion in 2014. Reported Medications Gabapentin 300 mg p.o. b.i.d. Medrol Dosepak. Lortab 5/325 q.6 h. Pain. Ocuvite p.o. daily. Colace 100 mg p.o. b.i.d. Calcium p.o. b.i.d. Sinemet 25/100 p.o. q.8 h. Tradjenta 5 mg p.o. daily. Lisinopril 5 mg p.o. daily. Flomax 0.4 mg p.o. q.h.s. Crestor 24 20 mg p.o. daily. Aspirin 325 mg p.o. daily [place] 200 mg p.o. t.i.d. Isosorbide mononitrate extended release 30 mg p.o. daily. Effexor 37.5 mg p.o. q.12 h. Metoprolol tartrate 50 mg p.o. b.i.d. Plavix 75 mg p.o. daily. Glipizide 10 mg p.o. b.i.d. Fenofibrate 145 mg p.o. daily. Prilosec 20 mg p.o. daily. Active Ordered Medications Currently on dopamine 5 g per KG per minute Family History Reviewed. Mother is at 79 from heart attack and his father at 73 from CVA. Social History No alcohol or tobacco use Physical Exam Vital Signs Vital Signs Date Time Temp Pulse Resp B/P Pulse Ox O2 Delivery O2 Flow Rate FiO2 07/16/16 11:30 57 16 79/42 99 Nasal Cannula 3 07/16/16 11:15 56 16 90/50 99 Nasal Cannula 3 07/16/16 11:00 55 16 99/55 99 Nasal Cannula 3 07/16/16 10:45 56 16 96/52 99 Nasal Cannula 3 07/16/16 10:30 57 16 101/56 99 Nasal Cannula 3 07/16/16 10:15 55 16 93/52 99 Nasal Cannula 3 07/16/16 10:00 55 16 104/57 99 Nasal Cannula 3 07/16/16 09:45 97.6 59 16 101/55 99 Nasal Cannula 3 07/16/16 07:05 98.3 53 20 110/65 97 Physical Exam PHYSICAL EXAMINATION: GEN: Alert awake, not in any distress HEENT: Normocephalic, atraumatic. NECK: Supple. No carotid bruits. LUNGS: Clear to auscultation bilaterally. HEART: The heart is regular rate and rhythm, Normal S1, S2. Well-healed CABG scar ABDOMEN: Soft, nontender. Positive bowel sounds. Skin: No rashes or erythema NEUROLOGIC: He is awake, alert, oriented. Cranial nerves intact. Neurological exam grossly normal except for right foot drop Laboratory Laboratory Tests Test 07/16/16 09:56 Sodium Level 140 Potassium Level 4.1 Chloride Level 105 Carbon Dioxide Level 27.4 Anion Gap 8 Blood Urea Nitrogen 35 Creatinine 1.90 Estimat Glomerular Filtration 34 Rate Random Glucose 91 Calcium Level 8.4 Magnesium Level 1.3 Total Creatine Kinase 83 Troponin I LESS THAN 0.02 Result Diagram: 07/16/16 0956 Imaging Reviewed Assessment and Plan Assessment and Plan NEURO: Large L4-L5 disc herniation with severe spinal stenosis Right foot drop Parkinson's disease -L4-L5 laminectomy was canceled today due to hypotension following induction -Pain management with morphine -Continue Parkinson's meds from home -Neurosurgery Dr. Joshua RESP: -Nasal cannula oxygen -Aggressive pulmonary toilet, DuoNeb if needed CV: Hypotension/shock Coronary artery disease Status post aVR -Hypotension most likely from induction medications and dehydration -Normal saline IV fluids 500 ml bolus and 50 ml per hour for 24 hours -Await 2d echo, cardiology consult Dr. Johnson, serial troponin. (Echo 04/2014 EF normal. Prosthetic AV, mild to mod regurg -Dopamine gtt to keep MAP >65 GI: -ADA heart healthy diet : Chronic kidney disease -Monitor renal function closely. ID: -Monitor for infection HEME: -Monitor CBC, CMP, coags ENDO: DM-2 -Sliding-scale insulin -Electrolyte replacement protocol PROPH: -Bilateral lower extremity SCDs. Lovenox 30 mg sq daily LINES: -Utilize peripheral IVs, central line if needed if Dopamine needs to be continued. DC Arterial line CC time 45 min Code Status Full Discussed Condition With Stephen Santa MD July 16, 2016 12:16
[2016-07-16] MEDS ORDERED: ENTACAPONE 200 MG PO SCH (13:00)
[2016-07-16] MEDS: SODIUM CHLOR 0.9% 1000 ML INJ 1,000 ML IV SCH (14:00)
[2016-07-16] MEDS ORDERED: ENOXAPARIN SODIUM 40 MG/0.4 ML SYRINGE SQ SCH (14:00)
--- NOTE | 2016-07-16 14:34 | RADRPT ---
EXAM DATE/TIME: 07/16/2016 13:57 [facility] COMPARISON: CHEST SINGLE AP, April 28, 2014, 15:55. INDICATIONS : Shortness of breath. MEDICAL HISTORY : Hypertension. Diabetes mellitus type 2. Cardiovascular disease. SURGICAL HISTORY : None. ENCOUNTER: Initial ACUITY: 1 day PAIN SCORE: 0/10 LOCATION: Bilateral chest FINDINGS: Sternal wires from previous median sternotomy are noted. The heart is minimally enlarged. Pulmonary vascularity is normal. There is no alveolar consolidation, pleural effusion or pneumothorax. CONCLUSION: Cardiomegaly with mild interstitial edema, improved in the interval. Mich Jaquez MD FACR on July 16, 2016 at 14:15 Board Certified Radiologist. This report was verified electronically.
[2016-07-16] MEDS: HYDROCORTISONE SOD SUCCINATE 100 MG VIAL IV PUSH SCH ×2 (14:53→22:23)
[2016-07-16 15:12] LABS: ALT (GPT) 13 U/L (12-78); ANION GAP 8 MEQ/L (5-15); AST (GOT) 22 U/L (15-37); BICARBONATE 26.3 MEQ/L (21.0-32.0); BLOOD UREA NITROGEN 33 MG/DL (7-18); CHLORIDE 103 MEQ/L (98-107); GLOMERULAR FILTRATION RATE 35 ML/MIN (>89); MAGNESIUM 1.2 MG/DL (1.5-2.5); POTASSIUM 4.5 MEQ/L (3.5-5.1); SODIUM (NA) 137 MEQ/L (136-145)
[2016-07-16 15:15] LABS: ALKALINE PHOSPHATASE 33 U/L (45-117); TOTAL BILIRUBIN ADULT 0.5 MG/DL (0.2-1.0)
[2016-07-16 15:17] LABS: HEMATOCRIT 37.4 % (39.0-51.0); MEAN CELL VOLUME 91.1 FL (80.0-100.0); MEAN CORPUSCULAR HEMOGLOBIN 29.9 PG (27.0-34.0); MEAN CORPUSCULAR HGB CONC 32.8 % (32.0-36.0); PLATELET COUNT 179 TH/MM3 (150-450); RED CELL DISTRIBUTION WIDTH 14.4 % (11.6-17.2); REVIEW FLAG FINAL
[2016-07-16] MEDS: CARBIDOPA/LEVODOPA 25 MG/100 MG TAB PO SCH ×3 (15:37→23:04)
--- NOTE | 2016-07-16 15:57 | EKG ---
Date Performed: 07/16/2016 Time Performed: 10:07:19 PTAGE: 86 years EKG: SINUS BRADYCARDIA WITH FIRST DEGREE AV BLOCK POOR R-WAVE PROGRESSION POSSIBLE INFERIOR INFA RCT ABNORMAL ECG Compared to PREVIOUS TRACING , heart rate is slower and NC interval is slighty longer. PREVIOUS GILDARDO N04/30/2014 05.36 DOCTOR: Bennett Pittman Interpretating Date/Time 07/16/2016 15:56:05
[2016-07-16] MEDS ORDERED: glipiZIDE 10 MG TAB PO SCH (16:00)
--- NOTE | 2016-07-16 16:46 | EC ---
Study Study Date:07/16/2016 STUDY CONCLUSIONS SUMMARY - Left ventricle: The cavity size was normal. Wall thickness was normal. Systolic function was normal. The estimated ejection fraction was in the range of 60% to 65%. Wall motion was normal; there were no regional wall motion abnormalities. - Aortic valve: Transvalvular velocity was minimally increased. There was mild stenosis. Valve area: 1.05cm^2(VTI). Valve area: 0.83cm^2 (Vmax). - Mitral valve: Mild regurgitation. - Left atrium: The atrium was mildly dilated. - Tricuspid valve: Mild regurgitation. - Pulmonary arteries: PA peak pressure: 41mm Hg (S). If LV function is below 40, please consider prescribing an ACEI or ARB or document rationale for non-use. PROCEDURE DATA STUDY STATUS: Elective. Procedure: Transthoracic echocardiography. Image quality was good. Scanning was performed from the parasternal, apical, and subcostal acoustic windows. Study completion: The patient tolerated the procedure well. Transthoracic echocardiography. M-mode, complete 2D, complete spectral Doppler, and color Doppler. Patient status: Inpatient. CARDIAC ANATOMY LEFT VENTRICLE: The cavity size was normal. Wall thickness was normal. Systolic function was normal. The estimated ejection fraction was in the range of 60% to 65%. Wall motion was normal; there were no regional wall motion abnormalities. AORTIC VALVE: Trileaflet; normal thickness, mildly calcified leaflets. Doppler: Transvalvular velocity was minimally increased. There was mild stenosis. No regurgitation. Valve area: 1.05cm^2(VTI). Valve area: 0.83cm^2 (Vmax). Mean gradient: 19mm Hg (S). Peak gradient: 39mm Hg (S). AORTA: Aortic root: The aortic root was normal in size. MITRAL VALVE: Structurally normal valve. Doppler: Transvalvular velocity was within the normal range. There was no evidence for stenosis. Mild regurgitation. Peak gradient: 2mm Hg (D). LEFT ATRIUM: The atrium was mildly dilated. RIGHT VENTRICLE: The cavity size was normal. Wall thickness was normal. PULMONIC VALVE: Doppler: Transvalvular velocity was within the normal range. There was no evidence for stenosis. No regurgitation. TRICUSPID VALVE: Structurally normal valve. Doppler: Transvalvular velocity was within the normal range. Mild regurgitation. PULMONARY ARTERY: The main pulmonary artery was normal-sized. Systolic pressure was within the normal range. RIGHT ATRIUM: The atrium was normal in size. PERICARDIUM: There was no pericardial effusion. SYSTEMIC VEINS: Inferior vena cava: The vessel was normal in size. BASIC MEASUREMENTS ADULT Normal Left ventricle LV internal dimension, ED, chordal level, *36.3 mm 43-52 PLAX LV internal dimension, ES, chordal level, 25.8 mm 23-38 PLAX Fractional shortening, chordal level, PLAX *29 % >29 LV posterior wall thickness, ED 10.2 mm IVS/LVPW ratio, ED *1.34 <1.3 Ventricular septum Septal thickness, ED 13.7 mm Right ventricle RV internal dimension, ED, PLAX 34.4 mm 19-38 BASIC MEASUREMENTS ADULT Normal Aorta Root diameter, ED 37 mm 20-37 Left atrium Anterior-posterior dimension, ES *43 mm 19-40 LA/aortic root ratio 1.16 DOPPLER MEASUREMENTS ADULT Normal Main pulmonary artery Pressure, S *41 mm Hg =30 Aortic valve Peak velocity, S 312 cm/s Mean velocity, S 199 cm/s VTI, S 63.5 cm Mean gradient, S 19 mm Hg Peak gradient, S 39 mm Hg Valve area, VTI 1.05 cm^2 Valve area, Vmax 0.83 cm^2 Mitral valve Peak E-wave velocity 75.5 cm/s Peak A-wave velocity 82.4 cm/s Peak gradient, D 2 mm Hg Peak E/A ratio 0.9 Tricuspid valve Regurgitant peak velocity 280 cm/s Peak RV-RA gradient, S 31 mm Hg Maximal regurgitant velocity 280 cm/s Systemic veins Estimated CVP 10 mm Hg Right ventricle RV pressure, S *41 mm Hg <30 LEGEND: Mean values are shown as u=mean value. Asterisk (*) arzate values outside specified normal range. Amended Norman Russell [id number]
[2016-07-16] MEDS: SODIUM CHLORIDE 0.9% FLUSH 10 ML FLUSH IV FLUSH SCH (21:00)
[2016-07-16] MEDS ORDERED: ATORVASTATIN 40 MG TAB PO SCH (21:00)
[2016-07-16] MEDS ORDERED: METOPROLOL TARTRATE 50 MG TAB PO SCH (21:00)
[2016-07-16] MEDS ORDERED: MIDODRINE 5 MG TAB PO PRN (22:15)
[2016-07-16] MEDS: TAMSULOSIN HCL 0.4 MG CAP PO SCH (22:24)
[2016-07-16] MEDS: CALCIUM/VITAMIN D 250 MG/125 U TAB PO SCH (22:24)
[2016-07-16] MEDS: GABAPENTIN 300 MG CAP PO SCH (22:25)
[2016-07-16] MEDS: ASPIRIN 325 MG TAB PO SCH (22:26)
[2016-07-16] MEDS: ATORVASTATIN 40 MG TAB PO SCH (22:26)
[2016-07-16] MEDS: DOCUSATE SODIUM 100 MG CAP PO SCH (22:26)
[2016-07-17] VITALS (12 sets, daily range): BP systolic 126–145; BP diastolic 57–73; PULSE 56–86; RESP 13–21; TEMP 97.7–98.1; O2SAT 95–100
[2016-07-17] MEDS: SODIUM CHLOR 0.9% 1000 ML INJ 1,000 ML IV SCH (05:00)
[2016-07-17] MEDS: HYDROCORTISONE SOD SUCCINATE 100 MG VIAL IV PUSH SCH (05:15)
[2016-07-17] MEDS: CARBIDOPA/LEVODOPA 25 MG/100 MG TAB PO SCH ×3 (05:15→21:32)
[2016-07-17] MEDS: MIDODRINE 5 MG TAB PO SCH ×2 (06:28→13:23)
[2016-07-17] MEDS: INSULIN NovoLIN REGULAR SUPPLEMENTAL SCALE SQ SCH ×4 (06:33→21:00)
--- NOTE | 2016-07-17 07:11 | MB ---
cc: SERGIO HOFFMAN M.D., ROHIT K. M.D. GUIRGIS, WAGID F. M.D. DATE OF CONSULTATION 07/16/2016 HISTORY OF PRESENT ILLNESS Mr. Alatorre is a pleasant 86-year-old gentleman with a history of coronary artery disease, hypertension, obstructive sleep apnea, hyperlipidemia, history of aortic stenosis status post aortic valve replacement with a #25 Maryam-Car Magna valve in 2010. At the same time he had three-vessel bypass. He came in today for the spine surgery and upon induction of anesthesia had a drop in his pressure requiring vasopressors and then had a transesophageal echocardiogram that showed normal LV systolic function and also had a surface echocardiogram that showed the same. The prosthetic aortic valve appears to be functioning adequately, although the report says mild stenosis. The peak velocities noted are consistent with the prosthetic valve. He denies chest pain, denies shortness of breath, denies palpitations. He has been getting lightheaded when he stands up fast and he walks with a walker secondary to her a drop in the pressure and autonomic dysfunction for which his lisinopril was slowly being weaned off as an outpatient. He denies orthopnea or PND, has occasional ankle swelling. Denies claudications. PAST MEDICAL AND SURGICAL HISTORY Includes what is mentioned above. ALLERGIES No known drug allergies. FAMILY HISTORY Positive for coronary artery disease, diabetes, hypertension and CHF. Negative for cancer. SOCIAL HISTORY Used to smoke but stopped in 1972. He has a history of 70 pack-year history of smoking. Denies EtOH abuse, recreational drug use. He is and lives with his . REVIEW OF SYSTEMS A 12-point system review, apart form what is mentioned above, is noncontributory. Neurologically, he has severe lower back pain and affecting the function of his extremities for which the surgery was planned. History of obstructive sleep apnea and Peripheral arterial disease. MEDICATIONS AT HOME 1. Ecotrin 81 mg p.o. daily which has been on hold. 2. Crestor 20 mg p.o. q.h.s. 3. Fenofibrate 145 mg p.o. q.h.s. 4. Glipizide 5 mg p.o. b.i.d. 5. Imdur 30 mg p.o. daily, small packets for small vessel disease. 6. Lisinopril 2.5 mg p.o. daily which will be discontinued. 7. Metoprolol tartrate 50 mg p.o. b.i.d. 8. Nitroglycerin p.r.n. chest pain. 9. Plavix 75 mg p.o. daily which has been on hold. 10. Sinemet 25/100 mg 2 tablets p.o. t.i.d. 11. Tamsulosin 0.4 mg p.o. q.h.s. 12. Tradjenta 5 mg p.o. daily. 13. Venlafaxine 37.5 mg p.o. b.i.d. PHYSICAL EXAMINATION GENERAL: An 86-year-old gentleman lying in bed, in no apparent distress, alert and oriented. VITAL SIGNS: Blood pressure is 100/60 mmHg, pulse 72 beats per minute and regular, respirations 14 per minute, afebrile. HEENT: Head is normocephalic. Pupils are equal and reactive. Throat is within normal limits. NECK: Supple. No carotid bruit. No jugular venous distension noted. No thyromegaly. LUNG EXAM: Diminished air entry bilaterally with a few rhonchi at the bases but overall clear. CARDIOVASCULAR EXAM: S1, S2 are normal with an S4 gallop and 1-2/6 systolic murmur across the precordium with 1/6 early diastolic murmur and distant heartbeats (unchanged). ABDOMINAL EXAM: Lax, nontender. Normoactive bowel sounds. No organomegaly, no masses felt. EXTREMITIES: No clubbing, cyanosis or edema. Intact pulses 2+ bilaterally and no bruit noted. NEUROLOGIC: Grossly intact. RECENT CARDIAC STUDIES An echocardiogram as an outpatient; this was done March 2016 and showed an LVEF of 60% with adequately functioning prosthetic aortic valve, mild pulmonary insufficiency, trace aortic insufficiency, mild mitral regurgitation, mild to moderate tricuspid regurgitation with a PA systolic pressure of 26 mmHg, aneurysmal atrial septum. He had a nuclear stress study in March 2016 which showed normal LVEF of 64% with mild ischemia of the inferior wall in a small area. Then he was asymptomatic and did well and continued medical therapy. EKG here showed sinus bradycardia at 56 beats per minute, borderline first-degree AV block and not significantly changed compared to prior tracing. ASSESSMENT AND RECOMMENDATION 1. Hypotension likely secondary to anesthesia induction on top of some degree of vasodepressive autonomic dysfunction which can be very well related to his Parkinsonism and medications. His lisinopril low dose will be discontinued. A low-dose midodrine will be added to his regimen at 2.5 mg p.o. b.i.d. and to hold with systolic blood pressure greater than 160 or diastolic greater than 90 mmHg. 2. We can still plan to proceed with surgery tomorrow if he is on the schedule, but I would give him a dose of midodrine of 5 mg p.o. prior to his surgery and prior to anesthesia induction. Would also hydrate well and use agents that are of less hypotensive effect if possible. In the meantime he should continue on the above cardiac-related medications. 3. Coronary artery disease status post CABG. Denies angina. Had a mildly abnormal nuclear stress study in March; however, with no clinical signs or symptoms of ischemia. Even after the hypotensive episode, his troponin was within normal limits. 4. Status post AVR with tissue valve, adequate function on echocardiogram. Prophylaxis is indicated in high risk procedures. 5. Hypertension/autonomic dysfunction/hypotension. Add low dose midodrine as mentioned above. 6. Obstructive sleep apnea, not wearing C-PAP therapy, cannot tolerate it. This is to be followed as an outpatient. 7. Hyperlipidemia, to be followed as an outpatient. 8. Peripheral arterial disease/carotid disease, asymptomatic. We will proceed as planned above. A prescription of low-dose midodrine at 2.5 mg p.o. b.i.d. was left in the chart. Can proceed with surgery tomorrow if planned, otherwise he can be discharged from the cardiac standpoint in the morning if continues to remain stable. Thank you for the consultation. MD KATY Durand/UTE /9:34 PM /6:50 AM
--- NOTE | 2016-07-17 08:29 | HHI.CCPN ---
Subjective Remarks/Hospital Course This is an 86-year-old male with past medical history significant for type 2 diabetes, hypertension, coronary artery disease, Parkinson's disease, status post AVR, CKD base line creat 1.9, who has previously undergone a L3, L4 and L5 decompressive laminectomy May 19, 2015. He presented to Dr. Joshua's office with progressively worsening radicular pain bilateral lower extremity and also recently developed a right foot drop. MRI done on July 07 showed large L4-L5 disc herniation with severe spinal stenosis. Patient was admitted to Dr. Joshua service on 07/13/16 for redo L4-L5 laminectomy and microdiscectomy. He is on aspirin and Plavix for CAD which was since held for anticipated surgery. In the OR, patient developed significant hypotension with induction of anesthesia. Patient received ephedrine and epinephrine pushes due to profound hypotension, and was placed on dopamine at 5 mics per KG per minute. Anesthesiologist performed a transesophageal echo which revealed good LV function. His patient partner Dr. Johnson had been consulted. Surgery was canceled. I evaluated the patient in the ICU. He denies chest pain or dizziness. remains on Dopamine at 5. SUBJ 07/17/16: Weaned off Dopamine. Stable BP. Appreciate Dr. stark evaluation. Started on low dose Midodrine Objective Vital Signs Date Time Temp Pulse Resp B/P Pulse Ox O2 Delivery O2 Flow Rate FiO2 07/17/16 06:00 62 07/17/16 04:00 18 140/60 99 07/17/16 00:00 98.1 07/16/16 19:00 Room Air 07/16/16 16:47 2.00 Intake and Output 07/16/16 07/16/16 07/17/16 08:00 16:00 00:00 Intake Total 2582 ml 796 ml Output Total 600 ml 625 ml Balance 1982 ml 171 ml Result Diagram: 07/16/16 1424 07/16/16 1424 Imaging Reviewed Objective Remarks PHYSICAL EXAMINATION: GEN: Alert awake, not in any distress HEENT: Normocephalic, atraumatic. NECK: Supple. No carotid bruits. LUNGS: Clear to auscultation bilaterally. HEART: The heart is regular rate and rhythm, Normal S1, S2. Well-healed CABG scar ABDOMEN: Soft, nontender. Positive bowel sounds. Skin: No rashes or erythema NEUROLOGIC: Awake, alert, oriented. Cranial nerves intact. Neurological exam grossly normal except for right foot drop A/P Assessment and Plan NEURO: Large L4-L5 disc herniation with severe spinal stenosis Right foot drop Parkinson's disease -L4-L5 laminectomy was canceled 07/16 due to hypotension following induction -Defer to Dr. Joshua re surgery rescheduling. Cardiology recommends Midodrine 5 mg prior to surgery -Pain management with morphine -Continue Parkinson's Meds from home -Neurosurgery Dr. Joshua RESP: -Nasal cannula oxygen -Aggressive pulmonary toilet, DuoNeb if needed CV: Hypotension-resolve Coronary artery disease Status post AVR in 2010 -Hypotension most likely from induction medications, dehydration and Parkinson disease -Normal saline IV fluids 50 ml per hour for 24 hours. Dopamine gtt weaned off -2d echo no WMA, normal valve function except mild stenosis, EF normal, cardiology Dr. Johnson, serial troponin negative -Started on Midodrine 25 BID -Cardiology recommends 5 mg Midrin prior to induction for surgery GI: -ADA heart healthy diet : Chronic kidney disease -Monitor renal function closely. ID: -Monitor for infection HEME: -Monitor CBC, CMP, coags ENDO: DM-2 -Sliding-scale insulin -Electrolyte replacement protocol PROPH: -Bilateral lower extremity SCDs. Lovenox 30 mg sq daily LINES: -Utilize peripheral IVs, central line if needed Level 2 CCM will sign off. Ok to transfer from [facility] to neuro floor with Telemetry Stephen Griffith MD July 17, 2016 08:29
[2016-07-17] MEDS: DOCUSATE SODIUM 100 MG CAP PO SCH ×2 (08:47→21:31)
[2016-07-17] MEDS: FENOFIBRATE 145 MG TAB PO SCH (08:47)
[2016-07-17] MEDS: MULTIVITAMIN-OPHTHALMIC 1 TAB PO SCH (08:47)
[2016-07-17] MEDS: GABAPENTIN 300 MG CAP PO SCH ×2 (08:47→21:31)
[2016-07-17] MEDS: CALCIUM/VITAMIN D 250 MG/125 U TAB PO SCH ×2 (08:47→21:32)
[2016-07-17] MEDS: PANTOPRAZOLE SOD 20 MG DELAYED RELEASE TAB PO SCH (08:47)
[2016-07-17] MEDS: METOPROLOL TARTRATE 25 MG TAB PO SCH ×2 (08:47→21:43)
[2016-07-17] MEDS: VENLAFAXINE HCL XR 75 MG CAP PO SCH (08:49)
[2016-07-17] MEDS ORDERED: ISOSORBIDE MONONITRATE 30 MG TAB PO SCH (09:00)
[2016-07-17] MEDS ORDERED: TRADJENTA 5 MG PO SCH (09:00)
[2016-07-17] MEDS: SODIUM CHLORIDE 0.9% FLUSH 10 ML FLUSH IV FLUSH SCH ×2 (09:00→21:00)
--- NOTE | 2016-07-17 09:50 | HHI.NSPN ---
(Clement Gaston) History Chief Complaint: Doing well. Mild intermittent light headed. (Clement Gaston ) Interval History This is an 86-year-old male who is known to our practice. He has previously undergone a L3, L4 and L5 decompressive laminectomy with medial facetectomy on May 19, 2015. He did well after surgery and was pleased with the results. Approximately one month ago he was sitting on the edge of his pool with his feet in the water, he went to get up and went to get up and felt severe pain radiating into his right buttocks and posterior leg. He was seen in the emergency room on 06/28 and 06/30 by emergency room provides no apparent disease his acute pain was treated and he was discharged home with instructions to follow up with neurosurgery. He states his pain has progressively gotten worse over the last two to three days and last week he developed a foot drop. His pain currently is in the right buttocks, posterior thigh and posterior calf and anterior jones. He is ambulating with a walker but fell the other day in his bedroom. He states that he has a difficult time with coordination, walking given his right foot drop. He uses a walker on a chronic basis because he has fell. Lightheadedness and dizziness and he also suffers from Parkinson's disease with tremors. He is on aspirin and Plavix. 07/16/16: Pt had a drop in systolic bp during injection of anesthesia. Surgery was cancelled. 07/17/16: Pt awake and alert. Sitting up in chair. States doing well. Mild lightheadedness, BP doing well off dopamine drip. Wants to proceed with surgery. No chest pain or sob. No paresthesias in face or extremities. No new weakness. (Clement Gaston) Review of Systems General: Negative for: fever, chills, insomnia Respiratory: Negative for: shortness of breath, cough, sputum Cardiovascular: Negative for: chest pain Gastrointestinal: Negative for: nausea, vomitting, diarrhea, constipation ( Clement Gaston) Exam Results Vital Signs Date Time Temp Pulse Resp B/P Pulse Ox O2 Delivery O2 Flow Rate FiO2 07/17/16 08:00 97.7 68 20 145/73 100 07/17/16 07:00 Room Air 07/16/16 16:47 2.00 Intake and Output 07/16/16 07/16/16 07/17/16 08:00 16:00 00:00 Intake Total 2582 ml 796 ml Output Total 600 ml 625 ml Balance 1982 ml 171 ml (Clement Gaston) Physical Examination Resp: CTA bilaterally Heart NSR no murmurs Abd: Soft positive bs Skin: No cyanosis or erythema Muscle: He has a right foot drop, otherwise moves extremities symmetrically. Neuro: Pt awake and alert. Sitting up in chair. Follows commands well. Speech clear and appropriate. No new numbness or paresthesias. (Clement Gaston) Lab, Micro, Other Results Laboratory Tests Test 07/16/16 07/16/16 07/16/16 07/16/16 09:56 12:42 14:24 15:33 Sodium Level 140 MEQ/L 137 MEQ/L Potassium Level 4.1 MEQ/L 4.5 MEQ/L Chloride Level 105 MEQ/L 103 MEQ/L Carbon Dioxide Level 27.4 MEQ/L 26.3 MEQ/L Anion Gap 8 MEQ/L 8 MEQ/L Blood Urea Nitrogen 35 MG/DL 33 MG/DL Creatinine 1.90 MG/DL 1.87 MG/DL Estimat Glomerular Filtration 34 ML/MIN 35 ML/MIN Rate Random Glucose 91 MG/DL 176 MG/DL Calcium Level 8.4 MG/DL 8.6 MG/DL Magnesium Level 1.3 MG/DL 1.2 MG/DL Total Creatine Kinase 83 U/L Troponin I LESS THAN 0.02 LESS THAN 0.02 NG/ML NG/ML Nasal Screen MRSA (PCR) MRSA NOT DETECTED White Blood Count 11.0 TH/MM3 Red Blood Count 4.10 MIL/MM3 Hemoglobin 12.2 GM/DL Hematocrit 37.4 % Mean Corpuscular Volume 91.1 FL Mean Corpuscular Hemoglobin 29.9 PG Mean Corpuscular Hemoglobin 32.8 % Concent Red Cell Distribution Width 14.4 % Platelet Count 179 TH/MM3 Mean Platelet Volume 7.9 FL Lactic Acid Level 1.4 mmol/L Total Bilirubin 0.5 MG/DL Aspartate Amino Transf 22 U/L (AST/SGOT) Alanine Aminotransferase 13 U/L (ALT/SGPT) Alkaline Phosphatase 33 U/L Total Protein 6.4 GM/DL Albumin 3.3 GM/DL Random Cortisol 119.8 MCG/DL Test 07/17/16 00:36 Troponin I LESS THAN 0.02 NG/ML 07/16/16 07/16/16 07/17/16 15:00 23:00 07:00 Intake Total 2582 ml 796 ml 386 ml Output Total 600 ml 625 ml 300 ml Balance 1982 ml 171 ml 86 ml Intake Oral 265 ml 240 ml 120 ml IV Total 617 ml 556 ml 266 ml Other 1700 ml Output Urine Total 600 ml 625 ml 300 ml Estimated Blood Loss 0 ml Other 0 ml # Bowel Movements 1 (Clement Gaston) Medical Decision Making Impression and Plan A: 86-year-old male with a 1-month history of low back pain with right L5-S1 radiculopathy and associated right foot drop. He has a large L4-L5 disk herniation with severe spinal stenosis. He has chronic L1/2. Disc degeneration protrusion of the left side. Pt had hypotension with induction of anesthesia and surgery was cancelled. Pts Insulation Inspector has evaluated pt and we appreciate his recommendations. PLAN We will look to place him on the OR scheduled for his Right L4, L6 and L5 hemilaminotomy with microdiskectomy. He will require rehab placement after surgery since his cannot take care of him at home no apparent disease he is very limited in his ambulatory status given his foot drop. He has had several falls at home. (Clement Gaston) Attending Statement The exam, history, and the medical decision-making described in the above note were completed with the assistance of the mid-level provider. I reviewed and agree with the findings presented. I attest that I had a [id number] encounter with the patient on the same day, and personally performed and documented my assessment and findings in the medical record. Blood pressure is stable and not requiring any vasopressor support. Cleared by cardiology to proceed with lumbar spine surgery. Discussed with patient and he would prefer we proceed soon and accordingly we'll schedule for tomorrow morning. (John Joshua MD) Clement Gaston July 17, 2016 09:50 John Joshua MD July 17, 2016 12:43
[2016-07-17] MEDS: ENOXAPARIN SODIUM 40 MG/0.4 ML SYRINGE SQ SCH (13:24)
[2016-07-17] MEDS: ACETAMINOPHEN/HYDROcodone 325 MG/10 MG TAB PO PRN (13:32)
[2016-07-17] MEDS: ATORVASTATIN 40 MG TAB PO SCH (21:31)
[2016-07-17] MEDS: TAMSULOSIN HCL 0.4 MG CAP PO SCH (21:32)
[2016-07-17] MEDS: ASPIRIN 325 MG TAB PO SCH (21:32)
[2016-07-18] VITALS (9 sets, daily range): BP systolic 104–141; BP diastolic 59–71; PULSE 54–76; RESP 17–20; TEMP 95.3–98.1; O2SAT 94–97
[2016-07-18] MEDS: SODIUM CHLOR 0.9% 1000 ML INJ 1,000 ML IV SCH (05:51)
[2016-07-18] MEDS: CARBIDOPA/LEVODOPA 25 MG/100 MG TAB PO SCH ×3 (06:00→22:31)
[2016-07-18] MEDS: MIDODRINE 5 MG TAB PO SCH ×3 (06:13→17:15)
[2016-07-18] MEDS: INSULIN NovoLIN REGULAR SUPPLEMENTAL SCALE SQ SCH ×4 (06:13→20:25)
[2016-07-18] MEDS: VENLAFAXINE HCL XR 75 MG CAP PO SCH (09:00)
[2016-07-18] MEDS: MULTIVITAMIN-OPHTHALMIC 1 TAB PO SCH (09:00)
[2016-07-18] MEDS: DOCUSATE SODIUM 100 MG CAP PO SCH ×2 (09:00→20:21)
[2016-07-18] MEDS: CALCIUM/VITAMIN D 250 MG/125 U TAB PO SCH ×2 (09:00→20:25)
[2016-07-18] MEDS: FENOFIBRATE 145 MG TAB PO SCH (09:00)
[2016-07-18] MEDS: SODIUM CHLORIDE 0.9% FLUSH 10 ML FLUSH IV FLUSH SCH ×2 (09:00→20:21)
[2016-07-18] MEDS: GABAPENTIN 300 MG CAP PO SCH ×2 (09:01→20:21)
[2016-07-18] MEDS: PANTOPRAZOLE SOD 20 MG DELAYED RELEASE TAB PO SCH (09:01)
[2016-07-18] MEDS: METOPROLOL TARTRATE 25 MG TAB PO SCH ×2 (09:01→20:21)
[2016-07-18] MEDS: ACETAMINOPHEN/HYDROcodone 325 MG/10 MG TAB PO PRN ×2 (09:04→20:20)
[2016-07-18] MEDS ORDERED: KETAMINE HCL 500 MG/5 ML VIAL IV ONE (12:00)
[2016-07-18] MEDS ORDERED: PHENYLEPH/NS 1000 MCG/10 ML SYR IV ONE (12:00)
[2016-07-18] MEDS ORDERED: ePHEDrine/NS 25 MG/5 ML SYR IV ONE (12:00)
[2016-07-18] MEDS ORDERED: LACTATED RINGER'S 1000 ML INJ 1,000 ML IV ONE (12:00)
[2016-07-18] MEDS ORDERED: fentaNYL CITRATE 250 MCG/5 ML AMP IV ONE (12:00)
[2016-07-18] MEDS ORDERED: MIDAZOLAM HCL 2 MG/2 ML VIAL IV ONE (12:00)
[2016-07-18] MEDS ORDERED: PROPOFOL 100 MG/10 ML INJ IV ONE (12:00)
[2016-07-18] MEDS ORDERED: ONDANSETRON HCL 4 MG/2 ML VIAL IV PUSH ONE (12:00)
[2016-07-18] MEDS ORDERED: ceFAZolin INJ 1,000 MG VIAL IV ONE (13:44)
[2016-07-18] MEDS ORDERED: methylPREDNISolone ACETATE 40 MG/ML VIAL I-LESIONAL ONE (14:38)
--- NOTE | 2016-07-18 15:13 | PD.OP ---
MD Flavia Samano MD Operative Report Date of Surgery: July 18, 2016 Preoperative Diagnosis: Lumbar L4-5 right disc herniation with facet hypertrophy and associated spinal and foraminal stenosis; low back pain with the right L5 radiculopathy and foot drop Postoperative Diagnosis: Same Procedure: Right L4-5 hemilaminotomy with medial facetectomy/foraminotomy with and microdiscectomy; microsurgical technique Anesthesia: Gen. endotracheal by Peng Rogers Surgeon: John Joshua M.D. Geographical Historian(s): Radha Verdugo Operation and Findings: Following administration of general endotracheal anesthesia, patient received Ancef 2 g intravenously. Sequential compression devices were placed for DVT prophylaxis. He was then turned in prone position on Neri frame and the Rob table and all pressure points adequately padded. The lumbar region was then shaved and prepped with a Betadine and ChloraPrep. Sterile draping undertaken with Ioban. Midline incision overlying the L4-5 level was then made after infiltrating the skin with 0.5% Marcaine with epinephrine solution. The skin incision was made extending down through the fascia and then using the subperiosteal plane on the right side the muscular attachments to the spinous process and lamina were detached. Intraoperative fluoroscopy was used for level confirmation and further dissection undertaken using microtechnique with microscope magnification. The inferior portion of the L4 and superior portion of the L5 lamina were then drilled out and the underlying ligamentum flavum also removed. There was facet arthropathy noted in the medial portion of facet was also resected and the lateral recess decompressed. Epidural venous stasis which he with the bipolar cautery along with Gelfoam and thrombin and bone wax used at the laminotomy edges for hemostasis. The thecal sac was then gently retracted with a nerve root retractor and an extruded disc fragment was identified which was superiorly migrated. Fragments were removed with pituitary forceps and the nerve root impingement along with thecal sac compression decompressed. The area was then copiously irrigated with vancomycin solution. The retractors removed and the muscle fascia proximal using 2-0 Vicryl interrupted stitches. 3-0 Vicryl subcuticular stitches were also placed in an interrupted fashion and planned skin closure was with Mastisol and Steri-Strips. A sterile dressing was then applied and the patient then turned in the supine position and extubated and taken to recovery room in stable condition. There were no intraoperative complications and all sponge and needle count was correct at the end of the procedure. Estimated blood loss about 50ml. John Joshua MD July 18, 2016 15:13
--- NOTE | 2016-07-18 16:16 | RADRPT ---
EXAM DATE/TIME: 07/18/2016 13:37 [facility] COMPARISON: CT LUMBAR SPINE W/O CONTRAST, June 30, 2016, 18:11. FLUOROSCOPY PORTABLE UP TO 1HR, July 18, 2016, 0 :00. INDICATIONS : Level Localization L4,L5. MEDICAL HISTORY : Hypertension. Diabetes mellitus type 2. Cardiovascular disease. SURGICAL HISTORY : None. ENCOUNTER: Subsequent ACUITY: 2 days PAIN SCORE: Non-responsive. LOCATION: Lumbar spine. FINDINGS: Intraoperative examination demonstrate localizing probe pointing towards lower lumbosacral spine poin ting towards L4-5. IMPRESSION: Intraoperative localization. Kelly Higginbotham MD on July 18, 2016 at 16:10 Board Certified Radiologist. This report was verified electronically.
--- NOTE | 2016-07-18 16:50 | HHI.CCPN ---
Subjective Remarks/Hospital Course This is an 86-year-old male with past medical history significant for type 2 diabetes, hypertension, coronary artery disease, Parkinson's disease, status post AVR, CKD base line creat 1.9, who has previously undergone a L3, L4 and L5 decompressive laminectomy May 19, 2015. He presented to Dr. Joshua's office with progressively worsening radicular pain bilateral lower extremity and also recently developed a right foot drop. MRI done on July 07 showed large L4-L5 disc herniation with severe spinal stenosis. Patient was admitted to Dr. Joshua service on 07/13/16 for redo L4-L5 laminectomy and microdiscectomy. He is on aspirin and Plavix for CAD which was since held for anticipated surgery. In the OR, patient developed significant hypotension with induction of anesthesia. Patient received ephedrine and epinephrine pushes due to profound hypotension, and was placed on dopamine at 5 mics per KG per minute. Anesthesiologist performed a transesophageal echo which revealed good LV function. His net developer architect Dr. Johnson had been consulted. Surgery was canceled. I evaluated the patient in the ICU. He denies chest pain or dizziness. remains on Dopamine at 5. SUBJ 07/17/16: Weaned off Dopamine. Stable BP. Appreciate Dr. stark evaluation. Started on low dose Midodrine 07/18: cardiology cleared for OR. plan for OR at 1300. patient seen and examined around 09:45am. patient denied complaints. talking on phone. dopamine off. bp stable. Objective Vital Signs Date Time Temp Pulse Resp B/P Pulse Ox O2 Delivery O2 Flow Rate FiO2 07/18/16 16:30 69 16 109/63 99 Nasal Cannula 3 07/18/16 15:25 97.5 Intake and Output 07/17/16 07/17/16 07/18/16 08:00 16:00 00:00 Intake Total 386 ml 938 ml 1245 ml Output Total 300 ml 600 ml Balance 86 ml 938 ml 645 ml Result Diagram: 07/16/16 1424 07/16/16 1424 Imaging Reviewed Objective Remarks PHYSICAL EXAMINATION: GEN: Alert awake, not in any distress HEENT: Normocephalic, atraumatic. NECK: Supple. No carotid bruits. LUNGS: Clear to auscultation bilaterally. HEART: The heart is regular rate and rhythm. Well-healed CABG scar ABDOMEN: Soft, nontender. no guarding. Skin: No rashes or erythema NEUROLOGIC: Awake, alert, oriented. Cranial nerves intact. Neurological exam grossly normal except for right foot drop A/P Assessment and Plan NEURO: Large L4-L5 disc herniation with severe spinal stenosis Right foot drop Parkinson's disease -L4-L5 laminectomy was canceled 07/16 due to hypotension following induction. Plan for OR today. -midodrine 5mg po prior to surgery. -Pain management with morphine -Continue Parkinson's Meds from home -Neurosurgery Dr. Joshua RESP: -Nasal cannula oxygen -Aggressive pulmonary toilet, DuoNeb if needed CV: Hypotension-resolve Coronary artery disease Status post AVR in 2010 -Hypotension most likely from induction medications, dehydration and Parkinson disease -s/p NS and dopamine. -2d echo no WMA, normal valve function except mild stenosis, EF normal, cardiology Dr. Johnson, serial troponin negative -Started on Midodrine 2.5 BID -Cardiology recommends 5 mg Midodrine prior to induction for surgery GI: -ADA heart healthy diet, currently NPO for OR today. : Chronic kidney disease -Monitor renal function closely. ID: -Monitor for infection HEME: -Monitor CBC, CMP, coags ENDO: DM-2 -Sliding-scale insulin -Electrolyte replacement protocol PROPH: -Bilateral lower extremity SCDs. Lovenox 30 mg sq daily LINES: -Utilize peripheral IVs, central line if needed Level 2 CCM will sign off, and if patient does well intra-operatively, can be moved to PACU and then to ortho floor per typical microdiscectomy pathway. Aroldo Barrera MD July 18, 2016 16:50
[2016-07-18 17:27] LABS: BICARBONATE 28.3 MEQ/L (21.0-32.0); POTASSIUM 4.1 MEQ/L (3.5-5.1)
[2016-07-18] MEDS: ATORVASTATIN 40 MG TAB PO SCH (20:20)
[2016-07-18] MEDS: TAMSULOSIN HCL 0.4 MG CAP PO SCH (20:21)
[2016-07-18] MEDS: ASPIRIN 325 MG TAB PO SCH (20:21)
[2016-07-18] MEDS: CYCLOBENZAPRINE HCL 10 MG TAB PO PRN (22:31)
[2016-07-18] MEDS: ZOLPIDEM TARTRATE 5 MG TAB PO PRN (22:31)
[2016-07-19] VITALS (8 sets, daily range): BP systolic 80–113; BP diastolic 50–67; PULSE 58–82; RESP 18–20; TEMP 96.5–98.1; O2SAT 93–95
[2016-07-19] MEDS ORDERED: SODIUM CHLORID 0.9% 500 ML INJ 500 ML IV ONE (01:00)
[2016-07-19] MEDS: CARBIDOPA/LEVODOPA 25 MG/100 MG TAB PO SCH ×3 (06:32→22:01)
[2016-07-19] MEDS: ACETAMINOPHEN/HYDROcodone 325 MG/10 MG TAB PO PRN ×3 (06:35→16:06)
[2016-07-19] MEDS: INSULIN NovoLIN REGULAR SUPPLEMENTAL SCALE SQ SCH ×4 (06:41→21:00)
[2016-07-19] MEDS: FENOFIBRATE 145 MG TAB PO SCH (08:05)
[2016-07-19] MEDS: CALCIUM/VITAMIN D 250 MG/125 U TAB PO SCH ×2 (08:06→22:00)
[2016-07-19] MEDS: DOCUSATE SODIUM 100 MG CAP PO SCH ×2 (08:06→22:00)
[2016-07-19] MEDS: GABAPENTIN 300 MG CAP PO SCH ×2 (08:06→22:00)
[2016-07-19] MEDS: METOPROLOL TARTRATE 25 MG TAB PO SCH ×2 (08:06→21:00)
[2016-07-19] MEDS: PANTOPRAZOLE SOD 20 MG DELAYED RELEASE TAB PO SCH (08:06)
[2016-07-19] MEDS: VENLAFAXINE HCL XR 75 MG CAP PO SCH (08:15)
[2016-07-19] MEDS: MULTIVITAMIN-OPHTHALMIC 1 TAB PO SCH (09:00)
--- NOTE | 2016-07-19 10:57 | HHI.NSPN ---
(Clement Gaston) History Chief Complaint: Doing well. Mild intermittent light headed. (Clement Gaston) Interval History This is an 86-year-old male who is known to our practice. He has previously undergone a L3, L4 and L5 decompressive laminectomy with medial facetectomy on May 19, 2015. He did well after surgery and was pleased with the results. Approximately one month ago he was sitting on the edge of his pool with his feet in the water, he went to get up and went to get up and felt severe pain radiating into his right buttocks and posterior leg. He was seen in the emergency room on 06/28 and 06/30 by emergency room provides no apparent disease his acute pain was treated and he was discharged home with instructions to follow up with neurosurgery. He states his pain has progressively gotten worse over the last two to three days and last week he developed a foot drop. His pain currently is in the right buttocks, posterior thigh and posterior calf and anterior jones. He is ambulating with a walker but fell the other day in his bedroom. He states that he has a difficult time with coordination, walking given his right foot drop. He uses a walker on a chronic basis because he has fell. Lightheadedness and dizziness and he also suffers from Parkinson's disease with tremors. He is on aspirin and Plavix. 07/16/16: Pt had a drop in systolic bp during injection of anesthesia. Surgery was cancelled. 07/17/16: Pt awake and alert. Sitting up in chair. States doing well. Mild lightheadedness, BP doing well off dopamine drip. Wants to proceed with surgery. No chest pain or sob. No paresthesias in face or extremities. No new weakness. 07/19/16: Patient underwent a redo L4/L5 hemilaminotomy with microdiscectomy on . He has mild incisional pain. Occasionally he does get pain radiating to the right lower extremity similar to preop but not to the same intensity. He states he still has mild lightheadedness. (Clement Gaston) Review of Systems General: Negative for: fever, chills, insomnia Respiratory: Negative for: shortness of breath, cough, sputum Cardiovascular: Negative for: chest pain Gastrointestinal: Negative for: nausea, vomitting, diarrhea, constipation ( Clement Gaston) Exam Results Vital Signs Date Time Temp Pulse Resp B/P Pulse Ox O2 Delivery O2 Flow Rate FiO2 07/19/16 08:00 96.5 63 18 104/64 93 07/18/16 22:09 Nasal Cannula 2.00 Intake and Output 07/18/16 07/18/16 07/19/16 08:00 16:00 00:00 Intake Total 367 ml 1200 ml 880 ml Output Total 400 ml 50 ml 200 ml Balance -33 ml 1150 ml 680 ml (Clement Gaston) Physical Examination Resp: CTA bilaterally Heart NSR no murmurs Abd: Soft positive bs Skin: No cyanosis or erythema. Incision clean and dry without any signs of infection or complication. Final skin closure was with Dermabond. Muscle: He has a right foot drop, otherwise moves extremities symmetrically. Neuro: Pt awake and alert. Follows commands well. Speech clear and appropriate. No new numbness or paresthesias. (Clement Gaston) Lab, Micro, Other Results 07/18/16 07/18/16 07/19/16 15:00 23:00 07:00 Intake Total 2080 ml 760 ml Output Total 250 ml 1000 ml Balance 1830 ml -240 ml Intake Oral 480 ml 60 ml IV Total 400 ml 700 ml Other 1200 ml Output Urine Total 200 ml 1000 ml Estimated Blood Loss 50 ml # Voids 2 1 2 # Bowel Movements 0 0 (Clement Gaston) Medical Decision Making Impression and Plan A: 86-year-old male with a 1-month history of low back pain with right L5-S1 radiculopathy and associated right foot drop. He has a large L4-L5 disk herniation with severe spinal stenosis. He has chronic L1/2. Disc degeneration protrusion of the left side. Pt had hypotension with induction of anesthesia and surgery was cancelled. Pts Chlorobutadiene Scrubber Operator has evaluated pt and we appreciate his recommendations. PLAN Continue with rehabilitation efforts. Advance diet to cardiac diet. (Clement Gaston) Attending Statement The exam, history, and the medical decision-making described in the above note were completed with the assistance of the mid-level provider. I reviewed and agree with the findings presented. I attest that I had a [id number] encounter with the patient on the same day, and personally performed and documented my assessment and findings in the medical record. He does appear to have orthostatic hypotension. We'll continue with IV fluids. He is not interested in going to rehabilitation and prefers to go home. Accordingly we' ll set up home health care with home PT and discharged when medically cleared/ stable. (John Joshua MD) Clement Gaston July 19, 2016 10:57 John Joshua MD July 19, 2016 18:37
--- NOTE | 2016-07-19 11:06 | HHI.PR ---
Subjective Remarks Pt reports that he has been having issues with dizziness upon standing for several months. He has had this in the past but it seems to be more consistent and more severe over the last 3-4 months per the pt. His BP decreased into the 80's systolic last night and the pt was given a bolus of IVF. He is otherwise without any specific complaints. Bp is stable currently. Objective Vitals Vital Signs Date Time Temp Pulse Resp B/P Pulse Ox O2 Delivery O2 Flow Rate FiO2 07/19/16 08:00 96.5 63 18 104/64 93 07/19/16 04:00 96.7 70 18 112/55 94 07/19/16 00:00 97.4 61 20 86/50 94 07/18/16 22:09 98 Nasal Cannula 2.00 07/18/16 20:00 95.3 76 20 141/71 97 07/18/16 18:27 97.0 76 20 116/65 97 07/18/16 17:30 98.0 71 15 102/59 97 Nasal Cannula 3 07/18/16 17:00 72 16 104/57 98 Nasal Cannula 3 07/18/16 16:45 72 16 101/58 98 Nasal Cannula 3 07/18/16 16:30 69 16 109/63 99 Nasal Cannula 3 07/18/16 16:15 69 15 101/48 96 Nasal Cannula 3 07/18/16 16:00 71 15 107/61 96 Nasal Cannula 3 07/18/16 15:45 75 15 98/58 96 Nasal Cannula 3 07/18/16 15:30 71 14 121/65 96 Nasal Cannula 3 07/18/16 15:25 97.5 67 14 116/62 98 Nasal Cannula 3 07/18/16 07/18/16 07/19/16 15:00 23:00 07:00 Intake Total 2080 ml 760 ml Output Total 250 ml 1000 ml Balance 1830 ml -240 ml Intake Oral 480 ml 60 ml IV Total 400 ml 700 ml Other 1200 ml Output Urine Total 200 ml 1000 ml Estimated Blood Loss 50 ml # Voids 2 1 2 # Bowel Movements 0 0 Result Diagram: 07/16/16 1424 07/18/16 1647 Other Results Laboratory Tests Test 07/18/16 16:47 Sodium Level 136 MEQ/L Potassium Level 4.1 MEQ/L Chloride Level 101 MEQ/L Carbon Dioxide Level 28.3 MEQ/L Anion Gap 7 MEQ/L Blood Urea Nitrogen 23 MG/DL Creatinine 1.51 MG/DL Estimat Glomerular Filtration 44 ML/MIN Rate Random Glucose 132 MG/DL Calcium Level 8.1 MG/DL Imaging Last Impressions Chest X-Ray 07/16/16 0000 Signed Impressions: Service Date/Time: Saturday, July 16, 2016 13:57 - CONCLUSION: Cardiomegaly with mild interstitial edema, improved in the interval. Mich Jaquez MD FACR Objective Remarks General: NAD, AAOx3 Chest: CTA Cardiac: Regular Abd: +BS, soft ND/NT Ext: No edema A/P Problem List: (1) Herniation of lumbar intervertebral disc with radiculopathy Status: Acute Plan: - Pt is an 86 y/o male admitted with a 1-month history of low back pain with right L5-S1 radiculopathy and associated right foot drop. He had a large L4-L5 disk herniation with severe spinal stenosis and chronic L1/2 disc degeneration protrusion of the left side. - Pt had been planned for surgical intervention on 07/16 but developed significant hypotension with induction of anesthesia. Anesthesiologist performed a transesophageal echo which revealed good LV function and the surgery was canceled - Pt was admitted to ICU under the care of the Intensivists. Patient received ephedrine and epinephrine pushes, and was placed on dopamine at 5 mics per KG per minute in ICU - Pt was seen by his production planning manager Dr. Johnson who felt that the hypotension was likely secondary to anesthesia induction on top of some degree of vaso-depressive autonomic dysfunction which can be related to his Parkinsonism and medications. - His lisinopril was discontinued. - Pt was started on a low-dose midodrine 2.5 mg BID and to hold with systolic blood pressure greater than 160 or diastolic greater than 90 mmHg. - Pt was weaned off the Dopamine and was able to proceed with surgery on 07/18. - Pt underwent redo L4/L5 hemilaminotomy with microdiscectomy on 07/18/[address] Joshua. - Pt transferred out of ICU and [facility] Hospitalists took over care on 07/19. - Pt is still on the Midodrine 2.5mg po BID @ 0700 and 1300 - Pt is also on Metoprolol 25mg po BID - He had a decrease in his BP last night into the 80's systolic and required a fluid bolus. - Check Orthostatic vital signs. - His BP is stable currently. - Consider stopping Flomax as this may be decreasing his BP - PT daily - Supportive care - DVT prophylaxis with Lovenox (2) Benign hypertension Status: Acute Plan: - See above. (3) Diabetes mellitus Status: Chronic Plan: - NovoLog SSI - Accu checks (4) Acute on chronic renal insufficiency Status: Acute (5) CAD (coronary artery disease) Status: Chronic Plan: - Pt with hx of CAD s/p CABG. - After the hypotensive episode, his troponin was within normal limits. - Pt is on Imdur 30mg po daily, Metoprolol 25mg BID (6) RASHMI (obstructive sleep apnea) Status: Chronic Plan: - Pt does not wear his C-PAP because he cannot tolerate it. - This is to be followed as an outpatient. 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 - 2D echo (07/16/16) - Estimated EF 60% to 65%. - Aortic valve with mild stenosis. - Mild mitral valve regurgitation. - LA mildly dilated. - Mild tricuspid valve regurgitation. - PA peak pressure 41mmHg (8) Parkinson disease Status: Chronic Plan: - Home meds continued Assessment and Plan Patient examined. Assessment and plan formulated with Regina Viramontes PA-C. I agree with the above. his main compaint was lightheadedness when standing even before admission. records indicate flomax. he is on midodrine for low bp. will check orthostatics. If orthostasis not improved with ivf then consider stopping flomax. SHEILA whittington. Problem Qualifiers (1) Diabetes mellitus: Regina Viramontes July 19, 2016 11:06 Ye Phillips MD July 19, 2016 20:48
[2016-07-19] MEDS: SODIUM CHLOR 0.9% 1000 ML INJ 1,000 ML IV SCH (18:30)
[2016-07-19] MEDS: ATORVASTATIN 40 MG TAB PO SCH (22:00)
[2016-07-19] MEDS: ASPIRIN 325 MG TAB PO SCH (22:00)
[2016-07-19] MEDS: ZOLPIDEM TARTRATE 5 MG TAB PO PRN (22:00)
[2016-07-19] MEDS: TAMSULOSIN HCL 0.4 MG CAP PO SCH (22:00)
[2016-07-19] MEDS: SODIUM CHLORIDE 0.9% FLUSH 10 ML FLUSH IV FLUSH SCH (22:20)
[2016-07-20] MEDS: SODIUM CHLOR 0.9% 1000 ML INJ 1,000 ML IV SCH ×2 (04:30→09:02)
[2016-07-20 05:39] VITALS: BP 128/69; PULSE 70; RESP 18; TEMP 97.3; O2SAT 94
[2016-07-20] MEDS: CARBIDOPA/LEVODOPA 25 MG/100 MG TAB PO SCH ×3 (05:59→22:18)
[2016-07-20] MEDS: MIDODRINE 5 MG TAB PO SCH ×2 (06:01→13:00)
[2016-07-20] MEDS: INSULIN NovoLIN REGULAR SUPPLEMENTAL SCALE SQ SCH ×4 (06:03→21:00)
[2016-07-20] MEDS: ACETAMINOPHEN/HYDROcodone 325 MG/10 MG TAB PO PRN ×4 (06:05→22:19)
[2016-07-20 08:00] VITALS: BP_SYST 131; BP_SYST 136; BP_SYST 145; BP_DIAS 80; BP_DIAS 84; BP_DIAS 86; PULSE 66; RESP 18; TEMP 96.8; O2SAT 97
[2016-07-20] MEDS: MULTIVITAMIN-OPHTHALMIC 1 TAB PO SCH (09:00)
[2016-07-20] MEDS: METOPROLOL TARTRATE 25 MG TAB PO SCH ×2 (09:00→22:18)
[2016-07-20] MEDS: CALCIUM/VITAMIN D 250 MG/125 U TAB PO SCH ×2 (09:00→22:18)
[2016-07-20] MEDS: PANTOPRAZOLE SOD 20 MG DELAYED RELEASE TAB PO SCH (09:00)
[2016-07-20] MEDS: GABAPENTIN 300 MG CAP PO SCH ×2 (09:00→22:18)
[2016-07-20] MEDS: DOCUSATE SODIUM 100 MG CAP PO SCH ×2 (09:00→22:17)
[2016-07-20] MEDS: FENOFIBRATE 145 MG TAB PO SCH (09:00)
[2016-07-20] MEDS: SODIUM CHLORIDE 0.9% FLUSH 10 ML FLUSH IV FLUSH SCH ×2 (09:01→22:19)
[2016-07-20 09:18] LABS: AUTOMATED NEUTROPHIL # 8.6 TH/MM3 (1.8-7.7); BASOPHIL % 0.2 % (0.0-2.0); EOSINOPHIL # 0.1 TH/MM3 (0-0.4); EOSINOPHIL % 1.3 % (0.0-4.0); HEMATOCRIT 37.5 % (39.0-51.0); HEMO FLAGS DIFF FINAL; LYMPH % 10.1 % (9.0-44.0); LYMPHOCYTE # 1.1 TH/MM3 (1.0-4.8); MEAN CELL VOLUME 91.6 FL (80.0-100.0); MEAN CORPUSCULAR HEMOGLOBIN 30.1 PG (27.0-34.0); MEAN CORPUSCULAR HGB CONC 32.9 % (32.0-36.0); MONO % 5.7 % (0.0-8.0); NEUT % 82.7 % (16.0-70.0); PLATELET COUNT 157 TH/MM3 (150-450); RED BLOOD COUNT 4.09 MIL/MM3 (4.50-5.90); RED CELL DISTRIBUTION WIDTH 14.3 % (11.6-17.2); WHITE BLOOD COUNT 10.4 TH/MM3 (4.0-11.0)
[2016-07-20 09:55] LABS: MAGNESIUM 2.1 MG/DL (1.5-2.5); POTASSIUM 3.9 MEQ/L (3.5-5.1)
[2016-07-20] MEDS: VENLAFAXINE HCL XR 75 MG CAP PO SCH (10:23)
--- NOTE | 2016-07-20 11:53 | HHI.PR ---
Subjective Remarks Pts BP is better this morning. He received some IVF overnight last night. Pt had been orthostatic yesterday but not this morning on recheck of orthostatic vitals. Objective Vitals Vital Signs Date Time Temp Pulse Resp B/P Pulse Ox O2 Delivery O2 Flow Rate FiO2 07/20/16 08:00 96.8 66 18 136/86 97 131/84 145/80 07/20/16 05:39 97.3 70 18 128/69 94 07/19/16 23:53 97.1 71 18 109/65 95 07/19/16 23:10 Room Air 07/19/16 20:19 98.1 82 18 106/56 95 07/19/16 16:00 97.7 64 18 105/66 95 07/19/16 13:09 66 99/67 07/19/16 13:09 64 113/62 07/19/16 13:09 69 80/55 07/19/16 11:53 97.2 58 18 103/61 95 07/19/16 07/19/16 07/20/16 15:00 23:00 07:00 Intake Total 960 ml Output Total 1200 ml 1400 ml Balance -240 ml -1400 ml Intake Oral 960 ml Output Urine Total 1200 ml 1400 ml Result Diagram: 07/20/16 0850 07/20/16 0850 Other Results Laboratory Tests Test 07/18/16 07/20/16 16:47 08:50 Sodium Level 136 MEQ/L 137 MEQ/L Potassium Level 4.1 MEQ/L 3.9 MEQ/L Chloride Level 101 MEQ/L 99 MEQ/L Carbon Dioxide Level 28.3 MEQ/L 30.0 MEQ/L Anion Gap 7 MEQ/L 8 MEQ/L Blood Urea Nitrogen 23 MG/DL 22 MG/DL Creatinine 1.51 MG/DL 1.53 MG/DL Estimat Glomerular Filtration 44 ML/MIN 44 ML/MIN Rate Random Glucose 132 MG/DL 128 MG/DL Calcium Level 8.1 MG/DL 8.7 MG/DL White Blood Count 10.4 TH/MM3 Red Blood Count 4.09 MIL/MM3 Hemoglobin 12.3 GM/DL Hematocrit 37.5 % Mean Corpuscular Volume 91.6 FL Mean Corpuscular Hemoglobin 30.1 PG Mean Corpuscular Hemoglobin 32.9 % Concent Red Cell Distribution Width 14.3 % Platelet Count 157 TH/MM3 Mean Platelet Volume 7.4 FL Neutrophils (%) (Auto) 82.7 % Lymphocytes (%) (Auto) 10.1 % Monocytes (%) (Auto) 5.7 % Eosinophils (%) (Auto) 1.3 % Basophils (%) (Auto) 0.2 % Neutrophils # (Auto) 8.6 TH/MM3 Lymphocytes # (Auto) 1.1 TH/MM3 Monocytes # (Auto) 0.6 TH/MM3 Eosinophils # (Auto) 0.1 TH/MM3 Basophils # (Auto) 0.0 TH/MM3 CBC Comment DIFF FINAL Differential Comment Magnesium Level 2.1 MG/DL Imaging Last Impressions Chest X-Ray 07/16/16 0000 Signed Impressions: Service Date/Time: Saturday, July 16, 2016 13:57 - CONCLUSION: Cardiomegaly with mild interstitial edema, improved in the interval. Mich Jaquez MD FACR Objective Remarks General: NAD, AAOx3 Chest: CTA Cardiac: Regular Abd: +BS, soft ND/NT Ext: No edema A/P Problem List: (1) Herniation of lumbar intervertebral disc with radiculopathy Status: Acute Plan: - Pt is an 86 y/o male admitted with a 1-month history of low back pain with right L5-S1 radiculopathy and associated right foot drop. He had a large L4-L5 disk herniation with severe spinal stenosis and chronic L1/2 disc degeneration protrusion of the left side. - Pt had been planned for surgical intervention on 07/16 but developed significant hypotension with induction of anesthesia. Anesthesiologist performed a transesophageal echo which revealed good LV function and the surgery was canceled - Pt was admitted to ICU under the care of the Intensivists. Patient received ephedrine and epinephrine pushes, and was placed on dopamine at 5 mics per KG per minute in ICU - Pt was seen by his cardiology nurse practitioner Dr. Johnson who felt that the hypotension was likely secondary to anesthesia induction on top of some degree of vaso-depressive autonomic dysfunction which can be related to his Parkinsonism and medications. - His lisinopril was discontinued. - Pt was started on a low-dose midodrine 2.5 mg BID and to hold with systolic blood pressure greater than 160 or diastolic greater than 90 mmHg. - Pt was weaned off the Dopamine and was able to proceed with surgery on 07/18. - Pt underwent redo L4/L5 hemilaminotomy with microdiscectomy on 07/18/[address] Joshua. - Pt transferred out of ICU and [facility] Hospitalist took over care on 07/19. - Pt is still on the Midodrine 2.5mg po BID @ 0700 and 1300 - Pt is also on Metoprolol 25mg po BID - On 07/19 pt was noted to be orthostatic. - Pt was given fluid overnight and BP better this morning. - Pt reports that he is not clear on why he was taking the Flomax or how long he has been on this medication. We will stop the Flomax and monitor his vitals and for any urinary symptoms. - His BP is stable currently. - PT daily - Supportive care - DVT prophylaxis with Lovenox (2) Benign hypertension Status: Acute Plan: - See above. (3) Diabetes mellitus Status: Chronic Plan: - NovoLog SSI - Accu checks (4) Acute on chronic renal insufficiency Status: Acute (5) CAD (coronary artery disease) Status: Chronic Plan: - Pt with hx of CAD s/p CABG. - After the hypotensive episode, his troponin was within normal limits. - Imdur stopped - Metoprolol 25mg BID (6) RASHMI (obstructive sleep apnea) Status: Chronic Plan: - Pt does not wear his C-PAP because he cannot tolerate it. - This is to be followed as an outpatient. 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 - 2D echo (07/16/16) - Estimated EF 60% to 65%. - Aortic valve with mild stenosis. - Mild mitral valve regurgitation. - LA mildly dilated. - Mild tricuspid valve regurgitation. - PA peak pressure 41mmHg (8) Parkinson disease Status: Chronic Plan: - Home meds continued Assessment and Plan Patient examined. Assessment and plan formulated with Regina Viramontes PA-C. I agree with the above. orthostasis. better. d/c flomax. stop ivf. monitor. stop midodrine if possible. Problem Qualifiers (1) Diabetes mellitus: Regina Viramontes July 20, 2016 11:53 Ye Phillips MD July 20, 2016 15:29
[2016-07-20 12:35] VITALS: BP 123/73; PULSE 55; RESP 18; TEMP 98.6; O2SAT 98
[2016-07-20] MEDS ORDERED: HYDR-3533 PO (14:58)
[2016-07-20] MEDS ORDERED: MIDO5TAB PO (14:58)
[2016-07-20] MEDS ORDERED: LACTULOSE SYRUP 20 GM/30 ML CUP PO ONE (15:00)
[2016-07-20] MEDS: ENOXAPARIN SODIUM 40 MG/0.4 ML SYRINGE SQ SCH (15:35)
--- NOTE | 2016-07-20 15:48 | HHI.NSPN ---
History Chief Complaint: Doing well with a resolved right leg radicular pain. Interval History 86-year-old gentleman who presents with intractable low back pain along with right L5 radiculopathy and a complete foot drop. He is now postoperative day # 2 status post L4-5 the laminectomy with microdiscectomy. He had orthostatic hypotension but with IV fluids as resolved and his blood pressure medications have also been held as per cardiology and the medical team. He relates that his right leg pain has significantly improved although still has foot drop. Exam Results Vital Signs Date Time Temp Pulse Resp B/P Pulse Ox O2 Delivery O2 Flow Rate FiO2 07/20/16 12:35 98.6 55 18 123/73 98 07/19/16 23:10 Room Air 07/18/16 22:09 2.00 Intake and Output 07/19/16 07/19/16 07/20/16 08:00 16:00 00:00 Intake Total 760 ml 960 ml Output Total 1000 ml 1200 ml Balance -240 ml -240 ml Physical Examination Resp: CTA bilaterally Heart NSR no murmurs Abd: Soft positive bs Skin: No cyanosis or erythema. Incision clean and dry without any signs of infection or complication. Muscle: He has a right foot drop, otherwise moves extremities symmetrically. Neuro: Pt awake and alert. Follows commands well. Speech clear and appropriate. No new numbness or paresthesias. Medical Decision Making Impression and Plan Status post L4-5 laminotomy with microdiscectomy for large disc herniation with associated intractable back pain and radiculopathy with foot drop. The pain has improved and along with his orthostatic hypotension. We will discontinue IV fluids and if that remains stable anticipate discharge home tomorrow with home therapy. He refuses to go to rehabilitation. DVT prophylaxis with SCDs and Lovenox. Continue rehabilitation with physical therapy. Updated at bedside. John Joshua MD July 20, 2016 15:48
--- NOTE | 2016-07-20 15:50 | AMB.FTFV ---
Face to Face Verification Physical Therapy Order: Evaluate and Treat, Improve ambulation, Strength and gait training Home Health Nursing Order: Nursing assessment with vital signs I have seen patient Mu Alatorre on 07/20/16. My clinical findings support the need for the requested home health care services because: Deconditioned w/ increased weakness unsteady gait/balance I certify that my clinical findings support that this patient is homebound because: Unsteady gait/balance chronic right foot drop/weakness John Joshua MD July 20, 2016 15:48
[2016-07-20] MEDS: glipiZIDE 10 MG TAB PO SCH (15:58)
[2016-07-20 16:35] VITALS: BP 117/69; PULSE 62; RESP 18; TEMP 96.7; O2SAT 97
[2016-07-20 20:00] VITALS: BP 115/63; PULSE 66; RESP 16; TEMP 98.1; O2SAT 95
[2016-07-20] MEDS: ASPIRIN 325 MG TAB PO SCH (22:17)
[2016-07-20] MEDS: ATORVASTATIN 40 MG TAB PO SCH (22:18)
[2016-07-20] MEDS: ZOLPIDEM TARTRATE 5 MG TAB PO PRN (22:18)
[2016-07-21] VITALS: BP 118/70; PULSE 60; RESP 18; TEMP 97.5; O2SAT 95
[2016-07-21 04:00] VITALS: BP 140/80; PULSE 58; RESP 20; TEMP 97.2; O2SAT 97
[2016-07-21] MEDS: CARBIDOPA/LEVODOPA 25 MG/100 MG TAB PO SCH ×2 (06:27→13:08)
[2016-07-21] MEDS: INSULIN NovoLIN REGULAR SUPPLEMENTAL SCALE SQ SCH ×2 (06:30→11:00)
[2016-07-21] MEDS: MIDODRINE 5 MG TAB PO SCH ×2 (06:35→13:08)
[2016-07-21 08:06] VITALS: BP 121/70; PULSE 67; RESP 18; TEMP 96.7; O2SAT 96
[2016-07-21] MEDS: MULTIVITAMIN-OPHTHALMIC 1 TAB PO SCH (08:41)
[2016-07-21] MEDS: PANTOPRAZOLE SOD 20 MG DELAYED RELEASE TAB PO SCH (08:41)
[2016-07-21] MEDS: VENLAFAXINE HCL XR 75 MG CAP PO SCH (08:41)
[2016-07-21] MEDS: FENOFIBRATE 145 MG TAB PO SCH (08:42)
[2016-07-21] MEDS: GABAPENTIN 300 MG CAP PO SCH (08:42)
[2016-07-21] MEDS: CYCLOBENZAPRINE HCL 10 MG TAB PO PRN (08:42)
[2016-07-21] MEDS: CALCIUM/VITAMIN D 250 MG/125 U TAB PO SCH (08:42)
[2016-07-21] MEDS: DOCUSATE SODIUM 100 MG CAP PO SCH (08:42)
[2016-07-21] MEDS: glipiZIDE 10 MG TAB PO SCH (08:42)
[2016-07-21] MEDS: METOPROLOL TARTRATE 25 MG TAB PO SCH (08:42)
[2016-07-21] MEDS: ACETAMINOPHEN/HYDROcodone 325 MG/10 MG TAB PO PRN (08:43)
[2016-07-21] MEDS: SODIUM CHLORIDE 0.9% FLUSH 10 ML FLUSH IV FLUSH SCH (08:44)
[2016-07-21] MEDS ORDERED: LACTULOSE SYRUP 20 GM/30 ML CUP PO SCH (09:00)
[2016-07-21 12:06] VITALS: BP 111/75; PULSE 81; RESP 18; TEMP 97; O2SAT 95
--- NOTE | 2016-07-21 14:29 | HHI.PR ---
Subjective Remarks doing ok. intermittently dizzy upon standing says has been problem for over a yr. Objective Vitals heart reg lung cta abd s/nt ext no edema Vital Signs Date Time Temp Pulse Resp B/P Pulse Ox O2 Delivery O2 Flow Rate FiO2 07/21/16 12:06 97.0 81 18 111/75 95 07/21/16 10:14 18 07/21/16 08:06 96.7 67 18 121/70 96 07/21/16 04:00 97.2 58 20 140/80 97 07/21/16 00:00 97.5 60 18 118/70 95 07/20/16 23:15 Room Air 07/20/16 20:00 98.1 66 16 115/63 95 07/20/16 16:35 96.7 62 18 117/69 97 07/20/16 07/20/16 07/21/16 15:00 23:00 07:00 Intake Total 1160 ml Output Total 1050 ml 650 ml Balance 110 ml -650 ml Intake Oral 360 ml IV Total 800 ml Output Urine Total 1050 ml 650 ml Result Diagram: 07/20/16 0850 07/20/16 0850 Imaging Last Impressions Chest X-Ray 07/16/16 0000 Signed Impressions: Service Date/Time: Saturday, July 16, 2016 13:57 - CONCLUSION: Cardiomegaly with mild interstitial edema, improved in the interval. Mich Jaquez MD FACR A/P Problem List: (1) Herniation of lumbar intervertebral disc with radiculopathy Status: Acute Plan: - Pt is an 86 y/o male admitted with a 1-month history of low back pain with right L5-S1 radiculopathy and associated right foot drop. He had a large L4-L5 disk herniation with severe spinal stenosis and chronic L1/2 disc degeneration protrusion of the left side. - Pt had been planned for surgical intervention on 07/16 but developed significant hypotension with induction of anesthesia. Anesthesiologist performed a transesophageal echo which revealed good LV function and the surgery was canceled - Pt was admitted to ICU under the care of the Intensivists. Patient received ephedrine and epinephrine pushes, and was placed on dopamine at 5 mics per KG per minute in ICU - Pt was seen by his applied exercise physiologist Dr. Johnson who felt that the hypotension was likely secondary to anesthesia induction on top of some degree of vaso-depressive autonomic dysfunction which can be related to his Parkinsonism and medications. - His lisinopril was discontinued. - Pt was started on a low-dose midodrine 2.5 mg BID and to hold with systolic blood pressure greater than 160 or diastolic greater than 90 mmHg. - Pt was weaned off the Dopamine and was able to proceed with surgery on 07/18. - Pt underwent redo L4/L5 hemilaminotomy with microdiscectomy on 07/18/[address] Joshua. - Pt transferred out of ICU and [facility] Hospitalist took over care on 07/19. - Pt is still on the Midodrine 2.5mg po BID @ 0700 and 1300 - Pt is also on Metoprolol 25mg po BID - On 07/19 pt was noted to be orthostatic. - Pt was given fluid overnight and BP better this morning. - Pt reports that he is not clear on why he was taking the Flomax or how long he has been on this medication. We will stop the Flomax and monitor his vitals and for any urinary symptoms. - His BP is stable currently. - PT daily - Supportive care - DVT prophylaxis with Lovenox d/c today. I instructed him to hold flomax x 1 week and see if his orthostatic sx's improved. if not then resume his flomax. If it does then hold flomax and notify his doctor. give jace hose for home use. slow positional change discussed. also his applied exercise physiologist started midodrine. might be able to stop on f/u. also his venecia was stopped. (2) Benign hypertension Status: Acute Plan: - See above. (3) Diabetes mellitus Status: Chronic Plan: - NovoLog SSI - Accu checks (4) Acute on chronic renal insufficiency Status: Acute (5) CAD (coronary artery disease) Status: Chronic Plan: - Pt with hx of CAD s/p CABG. - After the hypotensive episode, his troponin was within normal limits. - Imdur stopped - Metoprolol 25mg BID (6) RASHMI (obstructive sleep apnea) Status: Chronic Plan: - Pt does not wear his C-PAP because he cannot tolerate it. - This is to be followed as an outpatient. 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 - 2D echo (5/15/17) - Estimated EF 60% to 65%. - Aortic valve with mild stenosis. - Mild mitral valve regurgitation. - LA mildly dilated. - Mild tricuspid valve regurgitation. - PA peak pressure 41mmHg (8) Parkinson disease Status: Chronic Plan: - Home meds continued Problem Qualifiers (1) Diabetes mellitus: Ye Phillips MD July 21, 2016 14:29 Problem Qualifiers (1) Diabetes mellitus: Ye Phillips MD July 21, 2016 14:29
--- NOTE | 2016-07-21 15:40 | HHI.NSPN ---
(Antonio Ramirez) Note Status Status: Progress Note (Antonio Ramirez) Interval History Interval History 07/16/16: Pt had a drop in systolic bp during injection of anesthesia. Surgery was cancelled. 07/17/16: Pt awake and alert. Sitting up in chair. States doing well. Mild lightheadedness, BP doing well off dopamine drip. Wants to proceed with surgery. No chest pain or sob. No paresthesias in face or extremities. No new weakness. 07/19/16: Patient underwent a redo L4/L5 hemilaminotomy with microdiscectomy on . He has mild incisional pain. Occasionally he does get pain radiating to the right lower extremity similar to preop but not to the same intensity. He states he still has mild lightheadedness. 07/20: 86-year-old gentleman who presents with intractable low back pain along with right L5 radiculopathy and a complete foot drop. He is now postoperative day #2 status post L4-5 the laminectomy with microdiscectomy. He had orthostatic hypotension but with IV fluids as resolved and his blood pressure medications have also been held as per cardiology and the medical team. He relates that his right leg pain has significantly improved although still has foot drop. 07/21: Patient seen with Dr Tubbs. The patient is doing well and getting ready for discharge. He does have some pain to the right leg which is better. (Antonio Ramirez) Labs, Micro, & Vital Signs Constitutional Vital Signs Date Time Temp Pulse Resp B/P Pulse Ox O2 Delivery O2 Flow Rate FiO2 07/21/16 12:06 97.0 81 18 111/75 95 07/21/16 10:14 18 07/21/16 08:06 96.7 67 18 121/70 96 07/21/16 04:00 97.2 58 20 140/80 97 07/21/16 00:00 97.5 60 18 118/70 95 07/20/16 23:15 Room Air 07/20/16 20:00 98.1 66 16 115/63 95 07/20/16 16:35 96.7 62 18 117/69 97 07/21/16 07:00 Intake Total 1160 ml Output Total 1700 ml Balance -540 ml (Antonio Ramirez) Review of Systems/Exam ROS Back: Patient denies any back pain. Extremities: Patient has pain to the right leg which is better than before surgery. Exam Skin: Incision clean and dry without any signs of infection or complication. Muscle: He has a right foot drop, otherwise moves extremities symmetrically, left gastrocnemius 4/5 & right gastrocnemius 2/5 Neuro: Pt awake and alert. Follows commands well. Speech clear and appropriate. No new numbness or paresthesias. (Antonio Ramirez) Medications Current Medications Current Medications Medications (Trade) Dose Ordered Sig/Traci Route Start Time Stop Time Status Last Admin (NS Flush) 2 ml UNSCH PRN IV FLUSH 07/16/16 10:00 (NS Flush) 2 ml BID IV FLUSH 07/16/16 21:00 07/21/16 08:44 (Colace) 100 mg BID PO 07/16/16 21:00 07/21/16 08:42 (Milk Of Magnesia Liq) 30 ml DAILY PRN PO 07/16/16 10:00 (Mag-Al Plus Susp Liq) 30 ml Q6H PRN PO 07/16/16 10:00 Ondansetron HCl 4 mg 4 mg Q6H PRN IV 07/16/16 10:00 07/16/16 15:37 Calcium Gluconate 1 gm/Sodium Chloride 110 ml @ 110 mls/hr UNSCH PRN IV 07/16/16 10:00 Potassium Chloride 100 ml @ 50 mls/hr UNSCH PRN IV 07/16/16 10:00 (Magnesium Sulfate Inj/NS Inj) 104 ml @ 100 mls/hr UNSCH PRN IV 07/16/16 10:00 07/16/16 16:07 (Mobile 10-325 Mg) 1 tab Q4H PRN PO 07/16/16 10:00 07/20/16 22:19 (Mobile 10-325 Mg) 2 tab Q4H PRN PO 07/16/16 10:00 07/21/16 08:43 (Morphine Inj) 2 mg Q2H PRN IV 07/16/16 10:00 (Flexeril) 10 mg Q8H PRN PO 07/16/16 10:00 07/18/16 22:31 (Catapres) 0.1 mg Q6H PRN PO 07/16/16 10:00 (Tylenol) 650 mg Q4H PRN PO 07/16/16 10:00 ([place]) 1 lozenge UNSCH PRN BUCCAL 07/16/16 10:00 (Ambien) 5 mg HS PRN PO 07/16/16 10:00 07/20/16 22:18 (Brethine Inj) 1 mg UNSCH PRN SQ 07/16/16 10:00 (Aspirin) 325 mg HS PO 07/16/16 21:00 07/20/16 22:17 (Sinemet 25-100 Mg) 2.5 tab Q8HR PO 07/16/16 14:00 07/21/16 13:08 (Tricor) 145 mg DAILY PO 07/17/16 09:00 07/21/16 08:42 (Neurontin) 300 mg BID PO 07/16/16 21:00 07/21/16 08:42 (Imdur) 30 mg DAILY PO 07/17/16 09:00 Hold (Ocuvite) 1 tab DAILY PO 07/17/16 09:00 07/21/16 08:41 (Oscal-D 250-125) 500 mg BID PO 07/16/16 21:00 07/21/16 08:42 Patient Own Medication PT OWN MED: ENTACAP... TID PO 07/16/16 13:00 Hold Patient Own Medication PT OWN MED: TRADJE... DAILY PO 07/17/16 09:00 Hold (Protonix) 20 mg DAILY PO 07/17/16 09:00 07/21/16 08:41 (Effexor Xr) 75 mg DAILY PO 07/16/16 11:00 07/21/16 08:41 (D50w (Vial) Inj) 25 ml UNSCH PRN IV PUSH 07/16/16 10:15 (Glucagon Inj) 1 mg UNSCH PRN OTHER 07/16/16 10:15 (Lipitor) 40 mg HS PO 07/16/16 21:00 07/20/16 22:18 (Lovenox Inj) 30 mg Q24H SQ 07/17/16 14:00 07/20/16 15:35 (Proamatine) 2.5 mg DAILY@07,13 PO 07/17/16 07:00 07/21/16 13:08 (Lopressor) 25 mg BID PO 07/17/16 09:00 07/21/16 08:42 (Glucotrol) 10 mg BID@08,17 PO 07/20/16 17:00 07/21/16 08:42 (Lactulose Liq) 30 ml DAILY PO 07/21/16 09:00 07/21/16 08:41 (Antonio Ramirez) Medical Decision Making MDM Remarks Status post L4-5 laminotomy with microdiscectomy for large disc herniation with associated intractable back pain and radiculopathy with foot drop. The pain has improved. (Antonio Ramirez) Plan Plan Remarks Patient discharged home today with home therapy Recommend AFO orthotic for foot drop (Antonio Ramirez) Attending Statement The exam, history, and the medical decision-making described in the above note were completed with the assistance of the mid-level provider. I reviewed and agree with the findings presented. I attest that I had a [id number] encounter with the patient on the same day, and personally performed and documented my assessment and findings in the medical record. Stable exam today. OK to D/C home D/W patient AFO for foot drop (Mann Tubbs MD) Antonio Ramirez July 21, 2016 15:40 Mann Tubbs MD Sep 04, 2016 16:20
--- NOTE | 2016-08-04 12:57 | HHI.DS ---
Discharge Summary Admission Date July 16, 2016 at 10:04 Discharge Date: July 21, 2016 Admitting Diagnosis (1) Herniation of lumbar intervertebral disc with radiculopathy Diagnosis: Principal ICD Code: M51.16 (2) Benign hypertension Diagnosis: Secondary ICD Code: I10 (3) Diabetes mellitus Diagnosis: Secondary ICD Code: E11.9 (4) Acute on chronic renal insufficiency Diagnosis: Secondary ICD Code: N17.9 (5) CAD (coronary artery disease) Diagnosis: Secondary ICD Code: I25.10 (6) RASHMI (obstructive sleep apnea) Diagnosis: Secondary ICD Code: G47.33 (7) H/O aortic valve replacement with tissue graft Diagnosis: Secondary ICD Code: Z95.4 (8) Parkinson disease Diagnosis: Secondary ICD Code: G20 Procedures Right L4/L5 hemilaminotomy with medial facetectomy/foraminotomy and microdiscectomy by Dr. Joshua on 07/18/16. Brief History Patient has previously undergone L3, L4, L5 decompressive laminectomy with medial facetectomy on 05/19/15. He did well after surgery until about a month ago when he is sitting on the edge of the pool with his feet in the water went to get up and when he got up he felt severe pain radiating into his right buttock and posterior leg. He was seen in the emergency room on 06/28 and 06/30 by the emergency room provider's pain was treated and he was discharged home with instructions to follow up with neurosurgery. He stated that the pain is progressively getting worse over the last 2-3 days in the last week he developed a footdrop. His pain currently is in the right buttock and posterior thigh and posterior calf and anterior jones. He is ambulating with a walker but fell the other day and has bedroom. He states that he has difficult time with coordination and walking given his right foot drop. He uses a walker on a chronic basis because he has felt lightheaded and dizziness. He also suffers from Parkinson's disease with tremors. Imaging MRI of the lumbar spine from July 07, 2016 reveals a large L4/L5 disc herniation eccentric to the right side with severe spinal stenosis. There is chronic L2/ L3 degenerative disc disease with disc protrusion eccentric to the left side which is stable from his previous MRI scan. Hospital Course Patient developed significant hypotension with induction of anesthesia on . Anesthesiologist performed a transesophageal echo which revealed good LV function and discussed this with his steam conditioning operator. Surgery was canceled. Patient was admitted to the surgical intensive care unit and Dr. Johnson was consulted. Dr. Griffith from critical care was consulted for medical assistance while in the intensive care unit. Patient was on a dopamine drip to keep his MAP greater than 65. Patient's dopamine was weaned off and he was cleared by his steam conditioning operator for surgical intervention. The patient underwent the above- noted procedure performed by Dr. Joshua. There was no intraoperative complications. Postoperatively PT was consult that. Patient was evaluated by hospitalist group. He was discharged home in stable condition. Pt Condition on Discharge: Stable Discharge Disposition: Disch w/ Home Health Serv Discharge Instructions DIET: Follow Instructions for: As Tolerated, No Restrictions ACTIVITIES You can perform: Shower Only-No Bath Activities to Avoid: Lifting/Bending, Strenuous Activity, Bathing, Driving Follow up Referrals: Appointment for Follow Up Cardiology - 1 Week with Moustapha Johnson MD [facility] - 1 Week New Medications: Hydrocodone-Acetaminophen (Lortab) 5-325 Mg Tab 1 TAB PO Q4H PRN PAIN #60 Ref 0 TAB Midodrine (Midodrine) 5 Mg Tab 2.5 MG PO DAILY@07,13 hypotension #30 Ref 1 TAB Continued Medications: Aspirin (Aspirin) 325 Mg Tab 325 MG PO HS #30 Ref 0 TAB Calcium Carbonate-Cholecalciferol (Os-Jose Angel Extra D3) 500-600 Mg-Unit Tab 1 TAB PO BID Calcium Supplement Ref 0 TAB Carbidopa-Levodopa (Sinemet) 25-100 Mg Tab 2.5 TAB PO Q8HR Parkinson Disease Mgmt #90 Ref 0 TAB Clopidogrel (Plavix) 75 Mg Tab 75 MG PO DAILY Blood Clot Prevention #30 Ref 0 TAB Docusate Sodium (Colace) 100 Mg Cap 100 MG PO BID Constipation #60 Ref 0 CAP Entacapone (Entacapone) 200 Mg Tab 200 MG PO TID administered concomitantly with each levodopa/carbidopa dose Parkinson Disease Mgmt #90 Ref 0 TAB Fenofibrate (Fenofibrate) 145 Mg Tab 145 MG PO DAILY #30 Ref 0 TAB Gabapentin (Neurontin) 300 Mg Cap 300 MG PO BID #60 Ref 0 CAP Glipizide (Glipizide) 10 Mg Tab 10 MG PO BIDAC Take 30 minutes before a meal Blood Sugar Management #60 Ref 0 TAB Linagliptin (Tradjenta) 5 Mg Tab 5 MG PO DAILY Blood Sugar Management #30 Ref 0 TAB Metoprolol Tartrate (Metoprolol Tartrate) 50 Mg Tab 50 MG PO BID #60 Ref 0 TAB Multiple Vitamins W/ Minerals (Ocuvite) 1 Tab 1 TAB PO DAILY Nutritional Supplement Ref 0 TAB Omeprazole (Prilosec) 20 Mg Cap 20 MG PO DAILY #30 Ref 0 CAP Rosuvastatin (Crestor) 20 Mg Tab 20 MG PO HS Cholesterol Management #30 Ref 0 TAB Venlafaxine (Effexor) 37.5 Mg Tab 37.5 MG PO Q12H #60 Ref 0 TAB Discontinued Medications: Isosorbide Mononitrate ER (Isosorbide Mononitrate ER) 30 Mg Ezekiel 30 MG PO DAILY Prevent Chest Pain #30 Ref 0 TAB Lisinopril (Lisinopril) 5 Mg Tab 5 MG PO DAILY Blood Pressure Management #30 Ref 0 TAB Methylprednisolone Dosepak (Medrol Dosepak) 4 Mg Dspk 4 MG PO DIRECTED Per Pharmacist direction #1 Ref 0 DSPK Tamsulosin (Tamsulosin) 0.4 Mg Cap 0.4 MG PO HS Manage Prostate Problems #30 Ref 0 CAP Clement Gaston Aug 04, 2016 12:57
[2016-08-08] MEDS ORDERED: GABA300C5 PO (12:03)
[2016-08-14] MEDS ORDERED: HYDR-3533 PO (12:40)
== END 2016-07-21 15:50 | disposition home health service (06) | DRG 520 ==
LOC: HSDC 06:13 → HSDI 10:04 → N03A 12:26 → N05A 07-18 17:38
PROVIDERS: ADMIT Neurological Surgery; ATTEND Neurological Surgery
PROC: 0SB20ZZ Excision of Lumbar Vertebral Disc, Open Approach (ICD-10-PCS; 2016-07-18)
PROC: 01NB0ZZ Release Lumbar Nerve, Open Approach (ICD-10-PCS; principal; 2016-07-18 12:44)
DX: M51.17 Intervertebral disc disorders with radiculopathy, lumbosacral region (principal); I95.89 Other hypotension; E11.42 Type 2 diabetes mellitus with diabetic polyneuropathy; I95.2 Hypotension due to drugs; T41.45XA Adverse effect of unspecified anesthetic, initial encounter; E11.22 Type 2 diabetes mellitus with diabetic chronic kidney disease; I95.1 Orthostatic hypotension; I08.1 Rheumatic disorders of both mitral and tricuspid valves; G20 Parkinson's disease; E86.0 Dehydration; M21.371 Foot drop, right foot; I25.10 Atherosclerotic heart disease of native coronary artery without angina pectoris; E78.5 Hyperlipidemia, unspecified; G47.33 Obstructive sleep apnea (adult) (pediatric); I73.9 Peripheral vascular disease, unspecified; I12.9 Hypertensive chronic kidney disease with stage 1 through stage 4 chronic kidney disease, or unspecified chronic kidney disease; N18.9 Chronic kidney disease, unspecified; H91.90 Unspecified hearing loss, unspecified ear; K21.9 Gastro-esophageal reflux disease without esophagitis; F32.9 Major depressive disorder, single episode, unspecified; Z79.4 Long term (current) use of insulin; Z95.1 Presence of aortocoronary bypass graft; Z95.2 Presence of prosthetic heart valve; Z87.891 Personal history of nicotine dependence
CPT/HCPCS: 71010; 72020; 76000; 76937; 80048; 80053; 82533; 82550; 82948; 83605; 83735; 84484; 85025; 85027; 87641; 93005; 93306; 93318; 94150; J0131; J0690; J1030; J1100; J1265; J1650; J1720; J2250; J2270; J2370; J2405; J3010; J3370; J3475; J7030; J7040; J7050; J7120

== ENCOUNTER 2016-09-20 13:15 | Inpatient (IN) | payer MEDICARE ==
[~2016-09-20] VITALS: Ht 180.3 cm; Wt 80.0 kg
[~2016-09-20 13:15] MED LIST changes: +COLA100C PO; -COLA100C3 PO; +GABA300C5 PO; +HYDR-3533 PO; -ISOS30TA3 PO; -LISI-519 PO; -MEDR4PAK PO; +METO25TA3 PO; -METO50TA PO; +MIDO5TAB PO; -NEUR300C PO; -PRIL20CA9 PO; -TAMS0.4C4 PO; +ZANT150T2 PO
--- NOTE | 2016-09-20 18:16 | MH ---
cc: YASEMIN AGUILAR M.D. DATE OF ADMISSION: 09/21/2016 ADMITTING DIAGNOSIS: Recurrent disc herniation, lumbar spine. HISTORY OF PRESENT ILLNESS: This is an 86-year-old male who is well-known to us. He had previously undergone a L3-4-5 decompressive laminectomy with medial facetectomy on 05/19/2015. He then developed a recurrent disc herniation and underwent a right L4-5 hemilaminotomy with medial facetectomy and foraminotomy and microdiscectomy on 07/18/2016. He followed up at about two months from his last surgery with complaints of right buttock, hip, left lateral calf pain. He states the pain is severe especially when going to a sitting position. He states the worst pain is in the lateral hip. He states his left leg is starting to become stiff like his right leg. However, he does not have any severe pain in the left leg. When he ambulates, he compensates for a right foot drop. PAST MEDICAL HISTORY: His medical history is significant for: 1. Diabetes mellitus. 2. Parkinson's disease. 3. Sleep apnea. 4. Hypertension. 5. Coronary artery disease status post triple bypass with aortic valve replacement. 6. Carpal tunnel surgery in 2000. 7. Left leg vein occlusion in 2014. 8. L3-4-5 decompressive laminectomy with medial facetectomy on May 19, 2015. 9. Right L4-5 hemilaminotomy with medial facetectomy/foraminotomy with microdiscectomy on 07/18/2016. CURRENT MEDICATIONS: 1. Gabapentin 300 milligrams p.o. three times a day. 2. Midodrine 2.5 milligrams p.o. daily. 3. Ocuvite p.o. daily. 4. Entacapone 200 milligrams three times a day. 5. Sinemet 25/100 milligrams 2.5 tablets p.o. q. 8 hours. 6. Tradjenta 5 milligrams p.o. daily. 7. Crestor 20 milligrams p.o. at bedtime. 8. Aspirin 325 milligrams p.o. at bedtime and this was placed on hold prior to surgical intervention. 9. Effexor 37.5 milligrams p.o. q. 12 hours. 10. Metoprolol 50 milligrams p.o. twice a day. 11. Plavix 75 milligrams p.o. daily and this was placed on hold prior to surgical intervention. 12. Glipizide 10 milligrams p.o. twice a day. 13. Fenofibrate 145 milligrams p.o. daily. ALLERGIES: NO KNOWN DRUG ALLERGIES. FAMILY HISTORY: His mother is at 79 years old of a heart attack. His father is at 73 years old of a stroke. He has a sister who is alive at 79 and another sister who is alive at 71 who has a history of heart disease and is diabetic. He has a brother who is at 66 years of a heart attack. SOCIAL HISTORY: He is a motel box truck owner operator. He is . He has five children. He quit smoking in 1979. He does not drink alcohol. REVIEW OF SYSTEMS: CONSTITUTIONAL: He denies any fever or chills. EARS, NOSE AND THROAT: No pharyngitis, exudates or bloody drainage from his nose. CARDIOVASCULAR: He denies any chest pain or palpitations. RESPIRATORY: No cough or shortness of breath. GENITOURINARY: No dysuria or hematuria. MUSCULOSKELETAL: Positive for low back pain and leg pain. SKIN: No rashes or pruritus. NEUROLOGIC: No difficulty with speech or memory. He is hard of hearing. GASTROINTESTINAL: No nausea or vomiting or abdominal pain. PSYCHIATRIC: No anxiety or depression symptoms. ENDOCRINE: No polyuria or polydipsia. HEMATOLOGIC: Positive for bruising or bleeding tendencies related to his Plavix and aspirin use. PHYSICAL EXAMINATION: HEAD: Normocephalic, atraumatic. NECK: Supple. No carotid bruits heard on auscultation. LUNGS: Clear to auscultation bilaterally. HEART: Regular rate and rhythm. Normal S1-S2. ABDOMEN: Soft, nontender. Positive bowel sounds. SKIN: Reveals no cyanosis or erythema. He has a well-healed lumbar incision without any signs of infection or complication. MUSCULOSKELETAL: He has right foot drop, otherwise he has 5/5 strength in the lower extremities. He ambulates with a rolling walker. NEUROLOGIC: He is awake, alert and oriented. Cranial nerves II through XII are grossly intact other than he is hard of hearing. Sensation is intact in the extremities. DATA REVIEWED: Reviewed an MRI of the lumbar spine from 09/12/2016 which reveals a recurrent disc herniation at the L4-5 level with both spinal and foraminal stenosis. He also has facet arthropathy and degenerative disc disease involving L2-L3, L3-L4, L4-5 and L5-S1 levels. IMPRESSION: 86-year-old male with a chronic history of low back pain with right foot drop with radiculopathy and numbness and also states over last few weeks the left lower extremity is starting to bother him. He has a recurrent disk herniation at the L4-5 level with stenosis, both foraminal and spinal. He also has facet arthropathy and degenerative disc disease along the L2-3, L3-4, L4-5 and L5-S1 levels. PLAN: We have discussed treatment options with the patient which include continued conservative treatment measures versus surgical intervention. Discussed the surgical options which include a re-do right L4-5 microdiskectomy with the risk of recurrent disk herniation. He has already had two re-herniations versus a complete L4-5 discectomy with interbody fusion and pedicle screw fixation The patient and his are requesting to proceed with a complete discectomy with interbody fusion and pedicle screw fixation. The procedure as well as the risks, benefits, alternatives and recovery time were explained in great detail with the patient and his . We have discussed the risks involved with surgery including but not limited to bleeding, infection, muscle weakness, voice hoarseness, difficulty swallowing, heart attack, stroke, blood clots, non-fusion, scar tissue formation among others. The patient states that he understands the procedure as well as the risks involved and he is therefore scheduled accordingly. Dictated by Clement Gaston PA-C MD JOSE CRUZ Howe/EMERSON /5:11 PM /5:57 PM
[2016-09-21] MEDS ORDERED: PHENYLEPH/NS 1000 MCG/10 ML SYR IV ONE (08:27)
[2016-09-21] MEDS ORDERED: PHENYLEPHRINE HCL 10 MG/ML VIAL IV ONE (08:27)
[2016-09-21] MEDS ORDERED: ePHEDrine/NS 25 MG/5 ML SYR IV ONE (08:27)
[2016-09-21] MEDS ORDERED: PROPOFOL 200 MG/20 ML AMP IV ONE (08:27)
[2016-09-21] MEDS ORDERED: LACTATED RINGER'S 1000 ML INJ 1,000 ML IV ONE (08:28)
[2016-09-21] MEDS ORDERED: ONDANSETRON HCL 4 MG/2 ML VIAL IV PUSH ONE (08:28)
[2016-09-21] MEDS ORDERED: SODIUM CHLOR 0.9% 250 ML INJ 250 ML IV ONE (08:29)
[2016-09-21 11:49] VITALS: BP 142/81; PULSE 58; RESP 18; TEMP 98.1; O2SAT 97
[2016-09-21] MEDS ORDERED: ceFAZolin 2 GM PREMIX 50 ML ONE (11:50)
[2016-09-21] MEDS ORDERED: SODIUM CHLOR 0.9% 1000 ML INJ 1,000 ML IV SCH (12:00)
[2016-09-21] MEDS ORDERED: LACTATED RINGER'S 1000 ML IV PRN (12:15)
[2016-09-21] MEDS ORDERED: SODIUM CHLORID 0.9% 500 ML IV PRN (12:15)
[2016-09-21] MEDS ORDERED: POVIDONE IODINE 5% (ANTISEPSIS KIT) 4 APPLICATIONS EACH NARE PRN (12:15)
[2016-09-21] MEDS ORDERED: ceFAZolin 2 GM PREMIX 50 ML IV SCH (12:15)
[2016-09-21] MEDS ORDERED: CHLORHEXIDINE GLUCONATE 2 % 1 PACK (2 CLOTHS) TOPICAL PRN (12:15)
[2016-09-21] MEDS ORDERED: INSULIN HUMAN REGULAR 1,000 UNITS/10 ML VIAL SQ PRN (12:15)
[2016-09-21] MEDS ORDERED: METOPROLOL TARTRATE 25 MG TAB PO PRN (12:15)
[2016-09-21] MEDS ORDERED: THROMBIN (TOPICAL) 5,000 UNIT VIAL ONE (13:00)
[2016-09-21] MEDS ORDERED: GELFOAM SIZE 100 ONE (13:01)
[2016-09-21] MEDS ORDERED: BUPIVACAINE/EPINEPHRINE 0.5% PF 10 ML VIAL ONE (13:01)
[2016-09-21] MEDS ORDERED: ACETAMINOPHEN 1000 MG/100 ML VIAL IV ONE (13:50)
[2016-09-21] MEDS ORDERED: ARTIFICIAL TEARS OPTH OINT 3.5 APPLIC/3.5 GM TUBO ONE (13:50)
[2016-09-21] MEDS ORDERED: fentaNYL CITRATE 250 MCG/5 ML AMP ONE (13:50)
[2016-09-21] MEDS ORDERED: MIDAZOLAM HCL 2 MG/2 ML VIAL ONE (13:50)
[2016-09-21] MEDS ORDERED: FAMOTIDINE 20 MG/2 ML VIAL ONE (13:50)
[2016-09-21] MEDS: VANCOMYCIN HCL 1000 MG VIAL ONE (15:01)
[2016-09-21] MEDS ORDERED: VANCOMYCIN 500 MG VIAL ONE (16:35)
[2016-09-21] MEDS ORDERED: SUGAMMADEX SODIUM 200 MG/2 ML VIAL IV PUSH ONE ×2 (16:43)
[2016-09-21] MEDS ORDERED: GLUCAGON 1 MG/ML VIAL OTHER PRN (17:00)
[2016-09-21] MEDS ORDERED: RESP: ALBUTEROL 2.5 MG/3 ML NEB (PRN) NEB (17:00)
[2016-09-21] MEDS ORDERED: POTASSIUM CHLOR 20 MEQ PREMIX 100 ML IV PRN (17:00)
[2016-09-21] MEDS ORDERED: cloNIDine HCL 0.1 MG TAB PO PRN (17:00)
[2016-09-21] MEDS ORDERED: METOCLOPRAMIDE HCL 10 MG/2 ML VIAL IVS PRN (17:00)
[2016-09-21] MEDS ORDERED: SODIUM CHLORIDE 0.9% FLUSH 10 ML FLUSH IV FLUSH PRN (17:00)
[2016-09-21] MEDS ORDERED: ONDANSETRON HCL 4 MG/2 ML VIAL IV PRN (17:00)
[2016-09-21] MEDS ORDERED: MAGNESIUM SULFATE INJ 2 GM in SODIUM CHLORIDE 0.9% INJ 100 ML IV PRN (17:00)
[2016-09-21] MEDS ORDERED: CALCIUM GLUCONATE INJ 1 GM in SODIUM CHLORIDE 0.9% INJ 100 ML IV PRN (17:00)
[2016-09-21] MEDS ORDERED: MENTHOL LOZENGE BUCCAL PRN (17:00)
[2016-09-21] MEDS ORDERED: ACETAMINOPHEN 325 MG TAB PO PRN (17:00)
[2016-09-21] MEDS ORDERED: ALUMINUM/MAGNESIUM/SIMETH 30 ML CUP PO PRN (17:00)
[2016-09-21] MEDS ORDERED: ACETAMINOPHEN/HYDROcodone 325 MG/10 MG TAB PO PRN (17:00)
[2016-09-21] MEDS ORDERED: VENLAFAXINE 37.5 MG PO SCH (17:00)
[2016-09-21] MEDS ORDERED: DEXTROSE 50% IN WATER 50 ML VIAL(D50) IV PRN (17:00)
[2016-09-21] MEDS ORDERED: ZOLPIDEM TARTRATE 5 MG TAB PO PRN (17:00)
--- NOTE | 2016-09-21 17:09 | PD.OP ---
Operative Report Date of Surgery: Sep 21, 2016 Preoperative Diagnosis: Intractable low back pain and radiculopathy with recurrent L4-5 disc herniation and facet hypertrophy was associated spinal and foraminal stenosis; grade 1 L4- 5 spondylolisthesis Postoperative Diagnosis: Same Procedure: Lumbar L4-5 transforaminal interbody fusion; L4-5 redo decompressive laminectomies; L4-5 pedicle screw fixation; L4-5 interbody cage placement; microsurgical technique Anesthesia: Gen. endotracheal by Peng Rogers Surgeon: John Joshua M.D. Diet Therapist(s): Kiara Barreto Operation and Findings: Following initiation of general endotracheal anesthesia, the patient had a Campos catheter placed along with sequential compression devices. A gram of vancomycin was administered intravenously and he was turned in a prone position on a Neri frame, on a Rob table, and all pressure points adequately padded. The lumbosacral region was then prepped with Chloraprep and sterilely draped with Ioban along the usual sterile draping. A midline skin incision was then made extending from the L4-L5 level of the previous incision site after infiltrating the skin with 0.5% Marcaine with epinephrine solution extending down through the fascia. The muscle fibers were split using avascular fatty plane and detached from the underlying facets, transverse process and lateral portion of lamina on the right side and a self-retaining retractor used for exposure. Intraoperative fluoroscopy was also used for level of confirmation along with microscope magnification for further dissection. There was significant facet and ligamentum flavum hypertrophy noted at the L4-5 levels. Right L4-5 facet was resected with a drill bit along with the lamina and there was severe foraminal and lateral recess stenosis from hypertrophied ligamentum flavum along with postoperative epidural fibrosis and scar tissue which was dissected out. Epidural hemostasis was achieved with bipolar cautery and Gelfoam with thrombin. Subsequently entered into the disc space at the L4-5 level with a #15 blade and nahum were used for discectomy was also recurrent disc herniation noted which was removed. I then placed PEEK cage packed with local autograft bone and more local autograft bone was packed adjacent to the cage in interspace for added interbody fusion. With placement of the cage, I was able to distract the interspace and opened up the foramen further bilaterally. Subsequently in order to facilitate the fusion and provide stabilization, pedicle screw fixation was undertaken using [place] spine screws on entry point at the right L4-5 levels at the junction of the transverse process and facet. Subsequently using AP and lateral fluoroscopy tap and screw placement. The screws were then connected with a bolivar and locked in place with caps. The construct appeared very secure at this point. The area was then copiously irrigated with Vancomycin solution and powder. The retractors were removed and the bipolar cautery used for hemostasis. The muscle fascia was then approximated using 2-0 Vicryl interrupted stitches and then 3-0 Vicryl subcuticular stitches also placed in interrupted fashion. The final skin closure was completed with madeline. A sterile dressing was then applied. The patient then turned in supine position, extubated and taken to recovery room. There were no intraoperative complications. All sponge and needle counts were correct at the end of procedure. Estimated blood loss about 100 ml. John Joshua MD Sep 21, 2016 17:09
--- NOTE | 2016-09-21 17:23 | RADRPT ---
EXAM DATE/TIME: 09/21/2016 14:04 [facility] COMPARISON: No previous studies available for comparison. INDICATIONS : Fusion L4,L5 with screw and bolivar placement. MEDICAL HISTORY : Hypertension. Diabetes mellitus type 2. Cardiovascular disease SURGICAL HISTORY : Discectomy, lumbar. ENCOUNTER: Initial ACUITY: 1 day PAIN SCORE: Non-responsive. LOCATION: Lumbar spine. FINDINGS: 2 spot fluoroscopic images obtained in the operating room during a procedure demonstrates right pedic ular screws at L4-L5 with slight anterolisthesis. CONCLUSION: Spot fluoroscopic image, as above. Nacho Strickland MD on September 21, 2016 at 17:21 Board Certified Radiologist. This report was verified electronically.
[2016-09-21] MEDS: NS + KCL 20 MEQ INJ 1,000 ML IV SCH ×2 (17:35→21:26)
[2016-09-21] MEDS ORDERED: *morphine SULFATE 8 MG/ML PERIprocedure ONLY ONE (17:46)
[2016-09-21] MEDS: GABAPENTIN 300 MG CAP PO SCH (18:00)
[2016-09-21] MEDS ORDERED: NON-FORMULARY DRUG (Entacapone 200 MG) PO SCH (18:00)
--- NOTE | 2016-09-21 18:11 | PD.CONS ---
HPI Service [facility] Hospitalists Consult Requested By Dr Maribel Joshua Reason for Consult medical management Primary Care Physician Flavia Preston MD Diagnoses: History of Present Illness 86-year-old male with history of chronic low back pain with right foot drop with radiculopathy and numbness, previous back surgery, hypertension, Parkinson' s, diabetes mellitus, hyperlipidemia, CAD with h/o CABG and aortic valve replacement, sleep apnea who came to same day surgery for scheduled procedure by Dr. Joshua. The patient had previous back surgery done by Dr. Joshua. The patient complained of right buttock, him and left lateral cough pain with sitting position. Worse pain events in lateral keep. His left leg is also stiff, but denies severe pain in the left leg. He also has a right foot drop. Patient had recurrent disc herniation at L4 -5 level and is status post surgery by Dr. Joshua. The patient was seen in PACU. The hospitalist was consulted for medical management. The patient denies having chest pain, shortness of breath, nausea, vomiting, diarrhea or constipation. No fever or chills. Pain is controlled by medications. Review of Systems Except as stated in HPI: all other systems reviewed are Neg Past Family Social History Allergies: Coded Allergies: No Known Allergies (Unverified , 09/20/16) Past Medical History Hypertension Diabetes mellitus Hyperlipidemia CAD with history of triple CABG, aortic valve replacement Sleep apnea Parkinson's Chronic back pain, drop foot Past Surgical History Carpal tunnel surgery in 2000 Left leg vein occlusion in 2014 surgery L3 4 and 5 compressive laminectomy with medial facetectomy on 05/19/15 Right L4 5 hemilaminectomy with medial facetectomy and foraminotomy with microdiscectomy on 07/18/16 Reported Medications Reported Meds & Active Scripts Active Lortab (Hydrocodone-Acetaminophen) 5-325 Mg Tab 1 Tab PO Q4H PRN Gabapentin 300 Mg Cap 300 Mg PO TID Reported Zantac (Ranitidine HCl) 150 Mg Tab 150 Mg PO DAILY Colace (Docusate Sodium) 100 Mg Capsule 100 Mg PO BID Midodrine 5 Mg Tab 5 Mg PO BID Metoprolol Tartrate 25 Mg Tab 25 Mg PO BID Os-Jose Angel Extra D3 (Calcium Carbonate-Cholecalciferol) 500-600 Mg-Unit Tab 1 Tab PO BID Ocuvite (Multiple Vitamins W/ Minerals) 1 Tab 1 Tab PO DAILY Entacapone 200 Mg Tab 200 Mg PO TID administered concomitantly with each levodopa/carbidopa dose Sinemet (Carbidopa-Levodopa) 25-100 Mg Tab 2.5 Tab PO Q8HR Tradjenta (Linagliptin) 5 Mg Tab 5 Mg PO DAILY Crestor (Rosuvastatin Calcium) 20 Mg Tab 20 Mg PO HS Aspirin 325 Mg Tab 325 Mg PO HS Effexor (Venlafaxine HCl) 37.5 Mg Tab 37.5 Mg PO Q12H Plavix (Clopidogrel Bisulfate) 75 Mg Tab 75 Mg PO DAILY Glipizide 10 Mg Tab 10 Mg PO BIDAC Take 30 minutes before a meal Fenofibrate 145 Mg Tab 145 Mg PO HS Family History Mother heart attack at the age of 79 Father had a stroke at 73 years of age Sisters with heart disease and diabetes Brother had a heart attack at the age of 66 and Social History Denies tobacco, alcohol use , illicit substance use. Quit smoking in 1979. Physical Exam Vital Signs Vital Signs Date Time Temp Pulse Resp B/P Pulse Ox O2 Delivery O2 Flow Rate FiO2 09/21/16 17:15 98.0 72 16 116/60 99 Nasal Cannula 2 09/21/16 11:49 98.1 58 18 142/81 97 Physical Exam GENERAL: This is a well-nourished, well-developed patient, in no apparent distress. SKIN: No rashes, ecchymoses or lesions. Cool and dry. HEAD: Atraumatic. Normocephalic. No temporal or scalp tenderness. EYES: Pupils equal round and reactive. Extraocular motions intact. No scleral icterus. No injection or drainage. ENT: Nose without bleeding, purulent drainage or septal hematoma. Throat without erythema, tonsillar hypertrophy or exudate. Uvula midline. Airway patent. NECK: Trachea midline. No JVD or lymphadenopathy. Supple, nontender, no meningeal signs. CARDIOVASCULAR: Regular rate and rhythm without murmurs, gallops, or rubs. RESPIRATORY: Clear to auscultation. Breath sounds equal bilaterally. No wheezes , rales, or rhonchi. GASTROINTESTINAL: Abdomen soft, non-tender, nondistended. No hepato-splenomegaly , or palpable masses. No guarding. MUSCULOSKELETAL: Extremities without clubbing, cyanosis, or edema. No joint tenderness, effusion, or edema noted. No calf tenderness. Negative Homans sign bilaterally. NEUROLOGICAL: Awake and alert. Cranial nerves II through XII intact. Motor and sensory grossly within normal limits. Five out of 5 muscle strength in all muscle groups. Normal speech. Laboratory Laboratory Tests Test 09/21/16 11:45 Blood Type A POSITIVE Antibody Screen NEGATIVE Blood Bank Comment Imaging Last Impressions Lumbar Spine X-Ray 09/21/16 0000 Signed Impressions: Service Date/Time: Wednesday, September 21, 2016 14:04 - CONCLUSION: Spot fluoroscopic image, as above. Nacho Strickland MD Assessment and Plan Assessment and Plan 86 yo male with Recurrent disc herniation at the L4-5 level both spinal and foraminal stenosis. Facet arthropathy and degenerative disc disease of the level of L2-3, L3-4, L4- 5 and L5-S1. Status post Lumbar L4-5 transforaminal interbody fusion; L4-5 redo decompressive laminectomies; L4-5 pedicle screw fixation; L4-5 interbody cage placement; microsurgical technique on 09/21/16 by Josiane Segal Continue management per surgeon Hypertension: continue BP meds. Monitor BP and adjust meds as need. Add vasotec IV prn if SBP> 160. Pain control as might elevate BP Diabetes mellitus type 2. ISS, accuchecks. Monitor BS and adjust meds. Hyperlipidemia continue home meds CAD status post CABG continue home meds . No chest pain at this time Sleep apnea. Monitor O2 saturation. O2 by nasal canula as need. Patient to bring his own CPAP machine from home Thank you Dr Joshua for this consultation. Discussed Condition With Patient, nurse Aleida Xiong MD Sep 21, 2016 18:11
[2016-09-21 18:13] LABS: AUTOMATED NEUTROPHIL # 7.3 TH/MM3 (1.8-7.7); BASOPHIL # 0.1 TH/MM3 (0-0.2); BASOPHIL % 0.7 % (0.0-2.0); EOSINOPHIL # 0.2 TH/MM3 (0-0.4); EOSINOPHIL % 1.6 % (0.0-4.0); HEMATOCRIT 35.6 % (39.0-51.0); HEMO FLAGS DIFF FINAL; LYMPH % 18.3 % (9.0-44.0); LYMPHOCYTE # 1.8 TH/MM3 (1.0-4.8); MEAN CELL VOLUME 92.8 FL (80.0-100.0); MEAN CORPUSCULAR HGB CONC 33.4 % (32.0-36.0); MONO % 5.5 % (0.0-8.0); NEUT % 73.9 % (16.0-70.0); PLATELET COUNT 215 TH/MM3 (150-450); RED BLOOD COUNT 3.84 MIL/MM3 (4.50-5.90); RED CELL DISTRIBUTION WIDTH 14.4 % (11.6-17.2); WHITE BLOOD COUNT 9.8 TH/MM3 (4.0-11.0)
[2016-09-21] MEDS ORDERED: PILL SPLITTER OTHER PRN (18:15)
[2016-09-21 18:37] LABS: BICARBONATE 25.4 MEQ/L (21.0-32.0); POTASSIUM 3.4 MEQ/L (3.5-5.1)
[2016-09-21] MEDS ORDERED: DO NOT ADM ANY ANTICOAGULANT DRUGS PRN (18:45)
[2016-09-21 19:01] VITALS: BP 107/60; PULSE 70; RESP 16; TEMP 97; O2SAT 100
[2016-09-21] MEDS: INSULIN NovoLIN REGULAR SUPPLEMENTAL SCALE SQ SCH (21:00)
[2016-09-21] MEDS ORDERED: CALCIUM CARBONATE CHOLECALCIFEROL PO SCH (21:00)
[2016-09-21] MEDS: MIDODRINE 5 MG TAB PO SCH (21:00)
[2016-09-21] MEDS ORDERED: DOCUSATE SODIUM 100 MG CAP PO SCH (21:00)
[2016-09-21] MEDS ORDERED: NON-FORMULARY DRUG (Rosuvastatin (Crestor) 20 MG) PO SCH (21:00)
[2016-09-21] MEDS: MAGNESIUM HYDROXIDE SUSP 30 ML CUP PO PRN (21:21)
[2016-09-21] MEDS: VENLAFAXINE HCL XR 37.5 MG CAP PO SCH (21:21)
[2016-09-21] MEDS: METOPROLOL TARTRATE 25 MG TAB PO SCH (21:21)
[2016-09-21] MEDS: ACETAMINOPHEN/HYDROcodone 325 MG/10 MG TAB PO PRN (21:21)
[2016-09-21] MEDS: CARBIDOPA/LEVODOPA 25 MG/100 MG TAB PO SCH (21:21)
[2016-09-21] MEDS: DOCUSATE SODIUM 100 MG CAP PO SCH (21:21)
[2016-09-21] MEDS: CALCIUM/VITAMIN D 250 MG/125 U TAB PO SCH (21:22)
[2016-09-21] MEDS: ASPIRIN 325 MG TAB PO SCH (21:22)
[2016-09-21] MEDS: ATORVASTATIN 40 MG TAB PO SCH (21:22)
[2016-09-21] MEDS: SODIUM CHLORIDE 0.9% FLUSH 10 ML FLUSH IV FLUSH SCH (21:23)
[2016-09-21] MEDS: FENOFIBRATE 145 MG TAB PO SCH (21:23)
[2016-09-22] VITALS: BP 100/57; PULSE 90; RESP 17; TEMP 98.1; O2SAT 98
[2016-09-22] MEDS: CYCLOBENZAPRINE HCL 10 MG TAB PO PRN (00:02)
[2016-09-22 04:00] VITALS: BP 104/64; PULSE 71; RESP 16; TEMP 97.7; O2SAT 97
[2016-09-22] MEDS: CARBIDOPA/LEVODOPA 25 MG/100 MG TAB PO SCH ×3 (06:20→20:16)
[2016-09-22] MEDS: INSULIN NovoLIN REGULAR SUPPLEMENTAL SCALE SQ SCH ×4 (06:21→20:19)
[2016-09-22 07:27] VITALS: BP 104/64; PULSE 69; RESP 18; TEMP 96; O2SAT 93
[2016-09-22] MEDS: MIDODRINE 5 MG TAB PO SCH ×2 (07:54→20:16)
[2016-09-22] MEDS: GABAPENTIN 300 MG CAP PO SCH ×3 (07:54→17:13)
[2016-09-22] MEDS: DOCUSATE SODIUM 100 MG CAP PO SCH ×2 (07:54→20:17)
[2016-09-22] MEDS: MULTIVITAMIN-OPHTHALMIC 1 TAB PO SCH (07:54)
[2016-09-22] MEDS: FAMOTIDINE 20 MG TAB PO SCH (07:54)
[2016-09-22] MEDS: LACTULOSE SYRUP 20 GM/30 ML CUP PO SCH (07:55)
[2016-09-22] MEDS: VENLAFAXINE HCL XR 37.5 MG CAP PO SCH ×2 (07:55→20:17)
[2016-09-22] MEDS: SODIUM CHLORIDE 0.9% FLUSH 10 ML FLUSH IV FLUSH SCH ×2 (07:55→20:17)
[2016-09-22] MEDS: METOPROLOL TARTRATE 25 MG TAB PO SCH ×2 (07:55→20:17)
[2016-09-22] MEDS: CALCIUM/VITAMIN D 250 MG/125 U TAB PO SCH ×2 (07:55→20:16)
[2016-09-22 08:09] LABS: BICARBONATE 28.3 MEQ/L (21.0-32.0); POTASSIUM 3.9 MEQ/L (3.5-5.1)
[2016-09-22] MEDS ORDERED: PT:TRADJENTA 5 MG PO SCH (09:00)
[2016-09-22] MEDS ORDERED: [UNRECOGNIZED DRUG - OTHER] PO SCH (09:00)
[2016-09-22] MEDS ORDERED: NON-FORMULARY DRUG (Ranitidine (Zantac) 150 MG) PO SCH (09:00)
[2016-09-22] MEDS ORDERED: NON-FORMULARY DRUG (Linagliptin (Tradjenta) 5 MG) PO SCH (09:00)
--- NOTE | 2016-09-22 09:08 | HHI.PR ---
Subjective Remarks 86-year-old male with history of chronic low back pain with right foot drop with radiculopathy and numbness, previous back surgery, hypertension, Parkinson' s, diabetes mellitus, hyperlipidemia, CAD with h/o CABG and aortic valve replacement, sleep apnea who came to same day surgery for scheduled procedure by Dr. Joshua. The patient had previous back surgery done by Dr. Joshua. The patient complained of right buttock, him and left lateral cough pain with sitting position. Worse pain events in lateral keep. His left leg is also stiff, but denies severe pain in the left leg. He also has a right foot drop. Patient had recurrent disc herniation at L4 -5 level and is status post surgery by Dr. Joshua. The patient was seen in PACU. The hospitalist was consulted for medical management. The patient denies having chest pain, shortness of breath, nausea, vomiting, diarrhea or constipation. No fever or chills. Pain is controlled by medications. 09/22: Seen in his bedroom, in the presence of nurse Miss Perdomo, no nausea, vomit or diarrhea, is been confused, received pain medicine and Ambien will remove Ambien from his medicines to avoid major confusional episodes and try to limit his narcotic pain medicine. Objective Vital Signs Date Time Temp Pulse Resp B/P Pulse Ox O2 Delivery O2 Flow Rate FiO2 09/22/16 07:27 96.0 69 18 104/64 93 09/22/16 04:00 97.7 71 16 104/64 97 09/22/16 00:00 98.1 90 17 100/57 98 09/21/16 21:43 100 Nasal Cannula 2.00 09/21/16 19:01 97.0 70 16 107/60 100 09/21/16 18:30 68 16 104/60 97 Nasal Cannula 2 09/21/16 18:15 68 16 108/55 98 Nasal Cannula 2 09/21/16 18:00 68 16 118/63 98 Nasal Cannula 2 09/21/16 17:45 66 16 129/70 98 Nasal Cannula 2 09/21/16 17:30 70 16 128/64 99 Nasal Cannula 2 09/21/16 17:15 98.0 72 16 116/60 99 Nasal Cannula 2 09/21/16 11:49 98.1 58 18 142/81 97 I/O 7/21/09/21/16 09/21/16 09/22/16 09/22/16 09/22/16 07:00 15:00 23:00 07:00 15:00 23:00 Intake Total 997 ml 1067 ml Output Total 275 ml 350 ml Balance 722 ml 717 ml Intake Oral 600 ml 360 ml IV Total 397 ml 707 ml Output Urine Total 275 ml 350 ml Result Diagram: 09/21/16 1736 09/22/16 0720 Imaging Last Impressions Lumbar Spine X-Ray 09/21/16 0000 Signed Impressions: Service Date/Time: Wednesday, September 21, 2016 14:04 - CONCLUSION: Spot fluoroscopic image, as above. Nacho Strickland MD Procedures Status post Lumbar L4-5 transforaminal interbody fusion; L4-5 redo decompressive laminectomies; L4-5 pedicle screw fixation; L4-5 interbody cage placement; microsurgical technique on 09/21/16 by Josiane Segal Other Results Laboratory Tests Test 09/21/16 09/21/16 09/22/16 11:45 17:36 07:20 Blood Type A POSITIVE Antibody Screen NEGATIVE Blood Bank Comment White Blood Count 9.8 TH/MM3 Red Blood Count 3.84 MIL/MM3 Hemoglobin 11.9 GM/DL Hematocrit 35.6 % Mean Corpuscular Volume 92.8 FL Mean Corpuscular Hemoglobin 31.0 PG Mean Corpuscular Hemoglobin 33.4 % Concent Red Cell Distribution Width 14.4 % Platelet Count 215 TH/MM3 Mean Platelet Volume 7.6 FL Neutrophils (%) (Auto) 73.9 % Lymphocytes (%) (Auto) 18.3 % Monocytes (%) (Auto) 5.5 % Eosinophils (%) (Auto) 1.6 % Basophils (%) (Auto) 0.7 % Neutrophils # (Auto) 7.3 TH/MM3 Lymphocytes # (Auto) 1.8 TH/MM3 Monocytes # (Auto) 0.5 TH/MM3 Eosinophils # (Auto) 0.2 TH/MM3 Basophils # (Auto) 0.1 TH/MM3 CBC Comment DIFF FINAL Differential Comment Sodium Level 138 MEQ/L Potassium Level 3.9 MEQ/L Chloride Level 102 MEQ/L Carbon Dioxide Level 28.3 MEQ/L Anion Gap 8 MEQ/L Blood Urea Nitrogen 22 MG/DL Creatinine 1.65 MG/DL Estimat Glomerular Filtration 40 ML/MIN Rate Random Glucose 168 MG/DL Calcium Level 8.3 MG/DL Objective Remarks GENERAL: Well-developed patient, in no apparent distress. SKIN: No rashes, ecchymoses or lesions. Cool and dry. HEAD: Atraumatic. Normocephalic. No temporal or scalp tenderness. EYES: Pupils equal round and reactive. NECK: Trachea midline. No JVD or lymphadenopathy. CARDIOVASCULAR: Regular rate and rhythm without murmurs, gallops, or rubs. RESPIRATORY: Clear to auscultation. Breath sounds equal bilaterally. No wheezes , rales, or rhonchi. GASTROINTESTINAL: Abdomen soft, non-tender, nondistended. No hepato- splenomegaly. MUSCULOSKELETAL: Extremities without clubbing, cyanosis, or edema. NEUROLOGICAL: Awake and alert. confused. Medications and IVs Current Medications Medications (Trade) Dose Ordered Sig/Traci Route Start Time Stop Time Status Last Admin Lactated Ringer's 1,000 ml @ 30 mls/hr Q24H PRN IV 09/21/16 12:15 09/24/16 12:14 (NS 500 ml Inj) 500 ml @ 30 mls/hr [id number] PRN IV 09/21/16 12:15 09/24/16 12:14 (Aspirin) 325 mg HS PO 09/21/16 21:00 09/21/16 21:22 (Sinemet 25-100 Mg) 2.5 tab Q8HR PO 09/21/16 22:00 09/22/16 06:20 (Tricor) 145 mg HS PO 09/21/16 21:00 09/21/16 21:23 (Neurontin) 300 mg TID PO 09/21/16 18:00 09/22/16 07:54 (Lopressor) 25 mg BID PO 09/21/16 21:00 09/22/16 07:55 (Proamatine) 5 mg BID PO 09/21/16 21:00 09/22/16 07:54 Vit C/Vit E/Zinc/ Copper/Lutein 1 tab 1 tab DAILY PO 09/22/16 09:00 09/22/16 07:54 (NS + KCl 20 Meq Inj) 1,000 ml @ 80 mls/hr [id number] IV 09/21/16 18:00 09/21/16 21:26 (NS Flush) 2 ml UNSCH PRN IV FLUSH 09/21/16 17:00 Sodium Chloride 2 ml 2 ml BID IV FLUSH 09/21/16 21:00 09/22/16 07:55 (Ancef Inj/NS Inj) 100 ml @ 200 mls/hr Q8H IV 09/21/16 21:00 09/22/16 13:29 09/22/16 06:20 (Colace) 100 mg BID PO 09/21/16 21:00 09/22/16 07:54 (Milk Of Magnesia Liq) 30 ml DAILY PRN PO 09/21/16 17:00 09/21/16 21:21 (Mag-Al Plus Susp Liq) 30 ml Q6H PRN PO 09/21/16 17:00 (Reglan Inj) 10 mg Q8H PRN IVS 09/21/16 17:00 Ondansetron HCl 4 mg 4 mg Q6H PRN IV 09/21/16 17:00 Calcium Gluconate 1 gm/Sodium Chloride 110 ml @ 110 mls/hr UNSCH PRN IV 09/21/16 17:00 Potassium Chloride 100 ml @ 50 mls/hr UNSCH PRN IV 09/21/16 17:00 (Magnesium Sulfate Inj/NS Inj) 104 ml @ 100 mls/hr UNSCH PRN IV 09/21/16 17:00 (Rugby 10-325 Mg) 1 tab Q4H PRN PO 09/21/16 17:00 09/21/16 21:21 (Rugby 10-325 Mg) 2 tab Q4H PRN PO 09/21/16 17:00 09/22/16 03:28 (Flexeril) 10 mg Q8H PRN PO 09/21/16 17:00 09/22/16 00:02 (Catapres) 0.1 mg Q6H PRN PO 09/21/16 17:00 (Tylenol) 650 mg Q4H PRN PO 09/21/16 17:00 (Dana [place]) 1 lozenge UNSCH PRN BUCCAL 09/21/16 17:00 (Ambien) 5 mg HS PRN PO 09/21/16 17:00 09/22/16 00:02 (D50w (Vial) Inj) 50 ml UNSCH PRN IV 09/21/16 17:00 (Glucagon Inj) 1 mg UNSCH PRN OTHER 09/21/16 17:00 (Lactulose Liq) 30 ml DAILY PO 09/22/16 09:00 09/22/16 07:55 (Pill Splitter) 1 ea UNSCH PRN OTHER 09/21/16 18:15 Miscellaneous Information ALL NURSING DEPARTME... UNSCH PRN .XX 09/21/16 18:45 09/22/16 18:44 (Oscal-D 250-125) 500 mg BID PO 09/21/16 21:00 09/22/16 07:55 (Pepcid) 20 mg DAILY PO 09/22/16 09:00 09/22/16 07:54 (Lipitor) 40 mg HS PO 09/21/16 21:00 09/21/16 21:22 Patient Own Medication PT OWN MED: COMTAN(ENTACAPONE) 200 MG PO TID TID PO 09/22/16 09:00 Hold Patient Own Medication PT OWN MED: TRADJENTA(LINAGLIPTIN... DAILY PO 09/22/16 09:00 Hold (Effexor Xr) 37.5 mg BID PO 09/21/16 21:00 09/22/16 07:55 A/P Assessment and Plan Recurrent disc herniation at the L4-5 level both spinal and foraminal stenosis. Facet arthropathy and degenerative disc disease of the level of L2-3, L3-4, L4- 5 and L5-S1. Status post Lumbar L4-5 transforaminal interbody fusion; L4-5 redo decompressive laminectomies; L4-5 pedicle screw fixation; L4-5 interbody cage placement; microsurgical technique on 09/21/16 by Josiane Segal Continue management per surgeon Hypertension: controlled. Diabetes mellitus type 2. continue sliding scale. mild uncontrol on sliding scale Medium dose and add Levemir 10 units at bed time. Hyperlipidemia continue home meds CAD status post CABG continue home meds . No chest pain at this time Sleep apnea. Monitor O2 saturation. O2 by nasal canula as need. Patient to bring his own CPAP machine from home DVT prophylaxis as per Surgical Team Discussed Condition With Patient and Nurse Miss Garcia, all questions answered to the best of my abilities. Discharge Planning as per Attending physician. Yan Toro MD Sep 22, 2016 09:08 Yan Toro MD Sep 22, 2016 09:08
[2016-09-22 09:52] VITALS: O2SAT 96
[2016-09-22 11:27] VITALS: BP 101/57; PULSE 59; RESP 18; TEMP 97.7; O2SAT 93
[2016-09-22] MEDS: ACETAMINOPHEN/HYDROcodone 325 MG/10 MG TAB PO PRN (13:18)
--- NOTE | 2016-09-22 17:36 | HHI.NSPN ---
History Chief Complaint: low back pain Interval History 86-year-old male with chronic right foot drop. Status post L4-5 TLIF 09/21/16. System Review Comments Persistent pain radiating to the right lower extremity with numbness-unchanged compared to preoperative. Exam Results Vital Signs Date Time Temp Pulse Resp B/P Pulse Ox O2 Delivery O2 Flow Rate FiO2 09/22/16 11:27 97.7 59 18 101/57 93 09/22/16 09:52 21 09/21/16 21:43 Nasal Cannula 2.00 Intake and Output 09/21/16 09/21/16 09/22/16 08:00 16:00 00:00 Intake Total 997 ml Output Total 275 ml Balance 722 ml Physical Examination Respirations clear to auscultation Cardiac regular without murmur Abdomen soft nontender. Positive bowel sounds Mild lower extremity edema Sensation mildly diminished primarily posterior lateral aspect right calf and diffuse right foot to light touch. Strength mostly one-to/5 right tibialis anterior and gastrocsoleus Sensation to light touch and motor function intact left lower extremity Lab, Micro, Other Results Laboratory Tests Test 09/21/16 09/22/16 17:36 07:20 White Blood Count 9.8 TH/MM3 Red Blood Count 3.84 MIL/MM3 Hemoglobin 11.9 GM/DL Hematocrit 35.6 % Mean Corpuscular Volume 92.8 FL Mean Corpuscular Hemoglobin 31.0 PG Mean Corpuscular Hemoglobin 33.4 % Concent Red Cell Distribution Width 14.4 % Platelet Count 215 TH/MM3 Mean Platelet Volume 7.6 FL Neutrophils (%) (Auto) 73.9 % Lymphocytes (%) (Auto) 18.3 % Monocytes (%) (Auto) 5.5 % Eosinophils (%) (Auto) 1.6 % Basophils (%) (Auto) 0.7 % Neutrophils # (Auto) 7.3 TH/MM3 Lymphocytes # (Auto) 1.8 TH/MM3 Monocytes # (Auto) 0.5 TH/MM3 Eosinophils # (Auto) 0.2 TH/MM3 Basophils # (Auto) 0.1 TH/MM3 CBC Comment DIFF FINAL Differential Comment Sodium Level 139 MEQ/L 138 MEQ/L Potassium Level 3.4 MEQ/L 3.9 MEQ/L Chloride Level 103 MEQ/L 102 MEQ/L Carbon Dioxide Level 25.4 MEQ/L 28.3 MEQ/L Anion Gap 11 MEQ/L 8 MEQ/L Blood Urea Nitrogen 21 MG/DL 22 MG/DL Creatinine 1.76 MG/DL 1.65 MG/DL Estimat Glomerular Filtration 37 ML/MIN 40 ML/MIN Rate Random Glucose 90 MG/DL 168 MG/DL Calcium Level 8.7 MG/DL 8.3 MG/DL Medical Decision Making Impression and Plan Impression: 1. Stable neurologic exam status post L4 5 interbody fusion. Plan: Discussed with patient. Advance diet and activity as tolerated Anticipate discharge to [place] inpatient rehabilitation on Saturday. Mann Tubbs MD Sep 22, 2016 17:36
[2016-09-22] MEDS: NS + KCL 20 MEQ INJ 1,000 ML IV SCH (19:00)
[2016-09-22] MEDS: FENOFIBRATE 145 MG TAB PO SCH (20:16)
[2016-09-22] MEDS: ASPIRIN 325 MG TAB PO SCH (20:16)
[2016-09-22] MEDS: ATORVASTATIN 40 MG TAB PO SCH (20:17)
[2016-09-22] MEDS: INSULIN DETEMIR 100 UNITS/ML VIAL SQ SCH (20:18)
[2016-09-22 20:24] VITALS: BP 103/56; PULSE 71; RESP 18; TEMP 98.1; O2SAT 94
[2016-09-23 00:06] VITALS: BP 94/52; PULSE 71; RESP 16; TEMP 99.7; O2SAT 95
[2016-09-23 04:11] VITALS: BP 90/63; PULSE 65; RESP 16; TEMP 96.5; O2SAT 95
[2016-09-23] MEDS: ACETAMINOPHEN/HYDROcodone 325 MG/10 MG TAB PO PRN ×2 (06:36→17:41)
[2016-09-23] MEDS: CARBIDOPA/LEVODOPA 25 MG/100 MG TAB PO SCH ×3 (06:36→20:33)
[2016-09-23] MEDS: INSULIN NovoLIN REGULAR SUPPLEMENTAL SCALE SQ SCH ×4 (07:00→20:35)
[2016-09-23] MEDS: NS + KCL 20 MEQ INJ 1,000 ML IV SCH (07:30)
[2016-09-23 08:00] VITALS: BP 93/50; PULSE 76; RESP 18; TEMP 98.2; O2SAT 94
[2016-09-23] MEDS: MIDODRINE 5 MG TAB PO SCH ×2 (09:02→20:33)
[2016-09-23] MEDS: LACTULOSE SYRUP 20 GM/30 ML CUP PO SCH (09:02)
[2016-09-23] MEDS: GABAPENTIN 300 MG CAP PO SCH ×3 (09:02→17:41)
[2016-09-23] MEDS: CYCLOBENZAPRINE HCL 10 MG TAB PO PRN (09:02)
[2016-09-23] MEDS: METOPROLOL TARTRATE 25 MG TAB PO SCH ×2 (09:02→20:34)
[2016-09-23] MEDS: MULTIVITAMIN-OPHTHALMIC 1 TAB PO SCH (09:02)
[2016-09-23] MEDS: CALCIUM/VITAMIN D 250 MG/125 U TAB PO SCH ×2 (09:02→20:33)
[2016-09-23] MEDS: FAMOTIDINE 20 MG TAB PO SCH (09:02)
[2016-09-23] MEDS: VENLAFAXINE HCL XR 37.5 MG CAP PO SCH ×2 (09:02→20:33)
[2016-09-23] MEDS: DOCUSATE SODIUM 100 MG CAP PO SCH ×2 (09:02→20:33)
[2016-09-23] MEDS: SODIUM CHLORIDE 0.9% FLUSH 10 ML FLUSH IV FLUSH SCH ×2 (09:03→20:34)
--- NOTE | 2016-09-23 09:40 | HHI.PR ---
Subjective Remarks 86-year-old male with history of chronic low back pain with right foot drop with radiculopathy and numbness, previous back surgery, hypertension, Parkinson' s, diabetes mellitus, hyperlipidemia, CAD with h/o CABG and aortic valve replacement, sleep apnea who came to same day surgery for scheduled procedure by Dr. Joshua. The patient had previous back surgery done by Dr. Joshua. The patient complained of right buttock, him and left lateral cough pain with sitting position. Worse pain events in lateral keep. His left leg is also stiff, but denies severe pain in the left leg. He also has a right foot drop. Patient had recurrent disc herniation at L4 -5 level and is status post surgery by Dr. Joshua. The patient was seen in PACU. The hospitalist was consulted for medical management. The patient denies having chest pain, shortness of breath, nausea, vomiting, diarrhea or constipation. No fever or chills. Pain is controlled by medications. 09/22: Seen in his bedroom, in the presence of nurse Miss Perdomo, no nausea, vomit or diarrhea, is been confused, received pain medicine and Ambien will remove Ambien from his medicines to avoid major confusional episodes and try to limit his narcotic pain medicine. 09/23: Stable in his bedroom continue with Confusion probable related to Surgical management and also baseline Dementia, no nausea, vomit or diarrhea, okay to discharge from medicine standpoint. Objective Vital Signs Date Time Temp Pulse Resp B/P Pulse Ox O2 Delivery O2 Flow Rate FiO2 09/23/16 04:11 96.5 65 16 90/63 95 09/23/16 00:06 99.7 71 16 94/52 95 09/22/16 20:24 98.1 71 18 103/56 94 09/22/16 11:27 97.7 59 18 101/57 93 09/22/16 09:52 96 21 I/O 09/22/16 09/22/16 09/22/16 09/23/16 09/23/16 09/23/16 06:59 14:59 22:59 06:59 14:59 22:59 Intake Total 1067 ml 450 ml 360 ml 0 ml Output Total 350 ml 250 ml 850 ml 200 ml Balance 717 ml 200 ml -490 ml -200 ml Intake Oral 360 ml 450 ml 360 ml 0 ml IV Total 707 ml Output Urine Total 350 ml 250 ml 850 ml 200 ml # Bowel Movements 1 Result Diagram: 09/21/16 1736 09/22/16 0720 Imaging Last Impressions Lumbar Spine X-Ray 09/21/16 0000 Signed Impressions: Service Date/Time: Wednesday, September 21, 2016 14:04 - CONCLUSION: Spot fluoroscopic image, as above. Nacho Strickland MD Procedures Status post Lumbar L4-5 transforaminal interbody fusion; L4-5 redo decompressive laminectomies; L4-5 pedicle screw fixation; L4-5 interbody cage placement; microsurgical technique on 09/21/16 by Josiane Segal Other Results Laboratory Tests Test 09/21/16 09/21/16 09/22/16 11:45 17:36 07:20 Blood Type A POSITIVE Antibody Screen NEGATIVE Blood Bank Comment White Blood Count 9.8 TH/MM3 Red Blood Count 3.84 MIL/MM3 Hemoglobin 11.9 GM/DL Hematocrit 35.6 % Mean Corpuscular Volume 92.8 FL Mean Corpuscular Hemoglobin 31.0 PG Mean Corpuscular Hemoglobin 33.4 % Concent Red Cell Distribution Width 14.4 % Platelet Count 215 TH/MM3 Mean Platelet Volume 7.6 FL Neutrophils (%) (Auto) 73.9 % Lymphocytes (%) (Auto) 18.3 % Monocytes (%) (Auto) 5.5 % Eosinophils (%) (Auto) 1.6 % Basophils (%) (Auto) 0.7 % Neutrophils # (Auto) 7.3 TH/MM3 Lymphocytes # (Auto) 1.8 TH/MM3 Monocytes # (Auto) 0.5 TH/MM3 Eosinophils # (Auto) 0.2 TH/MM3 Basophils # (Auto) 0.1 TH/MM3 CBC Comment DIFF FINAL Differential Comment Sodium Level 138 MEQ/L Potassium Level 3.9 MEQ/L Chloride Level 102 MEQ/L Carbon Dioxide Level 28.3 MEQ/L Anion Gap 8 MEQ/L Blood Urea Nitrogen 22 MG/DL Creatinine 1.65 MG/DL Estimat Glomerular Filtration 40 ML/MIN Rate Random Glucose 168 MG/DL Calcium Level 8.3 MG/DL Objective Remarks GENERAL: Well-developed patient, in no apparent distress. SKIN: No rashes, ecchymoses or lesions. Cool and dry. HEAD: Atraumatic. Normocephalic. No temporal or scalp tenderness. EYES: Pupils equal round and reactive. NECK: Trachea midline. No JVD or lymphadenopathy. CARDIOVASCULAR: Regular rate and rhythm without murmurs, gallops, or rubs. RESPIRATORY: Clear to auscultation. Breath sounds equal bilaterally. No wheezes , rales, or rhonchi. GASTROINTESTINAL: Abdomen soft, non-tender, nondistended. No hepato- splenomegaly. MUSCULOSKELETAL: Extremities without clubbing, cyanosis, or edema. NEUROLOGICAL: Awake and alert. confused. Medications and IVs Current Medications Medications (Trade) Dose Ordered Sig/Traci Route Start Time Stop Time Status Last Admin Lactated Ringer's 1,000 ml @ 30 mls/hr Q24H PRN IV 09/21/16 12:15 09/24/16 12:14 (NS 500 ml Inj) 500 ml @ 30 mls/hr [id number] PRN IV 09/21/16 12:15 09/24/16 12:14 (Aspirin) 325 mg HS PO 09/21/16 21:00 09/22/16 20:16 (Sinemet 25-100 Mg) 2.5 tab Q8HR PO 09/21/16 22:00 09/23/16 06:36 (Tricor) 145 mg HS PO 09/21/16 21:00 09/22/16 20:16 (Neurontin) 300 mg TID PO 09/21/16 18:00 09/23/16 09:02 (Lopressor) 25 mg BID PO 09/21/16 21:00 09/23/16 09:02 (Proamatine) 5 mg BID PO 09/21/16 21:00 09/23/16 09:02 Vit C/Vit E/Zinc/ Copper/Lutein 1 tab 1 tab DAILY PO 09/22/16 09:00 09/23/16 09:02 (NS + KCl 20 Meq Inj) 1,000 ml @ 80 mls/hr [id number] IV 09/21/16 18:00 09/21/16 21:26 (NS Flush) 2 ml UNSCH PRN IV FLUSH 09/21/16 17:00 (NS Flush) 2 ml BID IV FLUSH 09/21/16 21:00 09/23/16 09:03 (Colace) 100 mg BID PO 09/21/16 21:00 09/23/16 09:02 (Milk Of Magnesia Liq) 30 ml DAILY PRN PO 09/21/16 17:00 09/21/16 21:21 (Mag-Al Plus Susp Liq) 30 ml Q6H PRN PO 09/21/16 17:00 (Reglan Inj) 10 mg Q8H PRN IVS 09/21/16 17:00 Ondansetron HCl 4 mg 4 mg Q6H PRN IV 09/21/16 17:00 Calcium Gluconate 1 gm/Sodium Chloride 110 ml @ 110 mls/hr UNSCH PRN IV 09/21/16 17:00 Potassium Chloride 100 ml @ 50 mls/hr UNSCH PRN IV 09/21/16 17:00 (Magnesium Sulfate Inj/NS Inj) 104 ml @ 100 mls/hr UNSCH PRN IV 09/21/16 17:00 (Vesper 10-325 Mg) 1 tab Q4H PRN PO 09/21/16 17:00 09/23/16 06:36 (Vesper 10-325 Mg) 2 tab Q4H PRN PO 09/21/16 17:00 09/22/16 03:28 (Flexeril) 10 mg Q8H PRN PO 09/21/16 17:00 09/23/16 09:02 (Catapres) 0.1 mg Q6H PRN PO 09/21/16 17:00 (Tylenol) 650 mg Q4H PRN PO 09/21/16 17:00 (Tripp Cleveland) 1 lozenge UNSCH PRN BUCCAL 09/21/16 17:00 09/22/16 20:30 (D50w (Vial) Inj) 50 ml UNSCH PRN IV 09/21/16 17:00 (Glucagon Inj) 1 mg UNSCH PRN OTHER 09/21/16 17:00 (Lactulose Liq) 30 ml DAILY PO 09/22/16 09:00 09/23/16 09:02 (Pill Splitter) 1 ea UNSCH PRN OTHER 09/21/16 18:15 (Oscal-D 250-125) 500 mg BID PO 09/21/16 21:00 09/23/16 09:02 (Pepcid) 20 mg DAILY PO 09/22/16 09:00 09/23/16 09:02 (Lipitor) 40 mg HS PO 09/21/16 21:00 09/22/16 20:17 Patient Own Medication PT OWN MED: COMTAN(ENTACAPONE) 200 MG PO TID TID PO 09/22/16 09:00 Hold Patient Own Medication PT OWN MED: TRADJENTA(LINAGLIPTIN... DAILY PO 09/22/16 09:00 Hold (Effexor Xr) 37.5 mg BID PO 09/21/16 21:00 09/23/16 09:02 (Levemir Inj) 10 units HS SQ 09/22/16 21:00 09/22/16 20:18 A/P Assessment and Plan Recurrent disc herniation at the L4-5 level both spinal and foraminal stenosis. Facet arthropathy and degenerative disc disease of the level of L2-3, L3-4, L4- 5 and L5-S1. Status post Lumbar L4-5 transforaminal interbody fusion; L4-5 redo decompressive laminectomies; L4-5 pedicle screw fixation; L4-5 interbody cage placement; microsurgical technique on 09/21/16 by Josiane Segal Continue management per surgeon Hypertension: controlled. Diabetes mellitus type 2. continue sliding scale. better control will decrease the dose of Levemir if continue Hospitalized tonight he blood sugar in am is 110. Hyperlipidemia continue home meds CAD status post CABG continue home meds . No chest pain at this time Sleep apnea. Monitor O2 saturation. O2 by nasal canula as need. Patient to bring his own CPAP machine from home Metabolic Encephalopathy multifactorial secondary to Surgical procedure and baseline Dementia move on to Rehab will help the patient. DVT prophylaxis as per Surgical Team Discussed Condition With Patient and Nurse Miss Garcia, all questions answered to the best of my abilities. Discharge Planning as per Attending physician. Okay to discharge from Medicine standpoint. Yan Toro MD Sep 23, 2016 09:40
[2016-09-23 12:00] VITALS: BP 112/59; PULSE 77; RESP 18; TEMP 98.7; O2SAT 94
--- NOTE | 2016-09-23 15:09 | HHI.NSPN ---
History Chief Complaint: low back pain Interval History 86-year-old male with chronic right foot drop. Status post L4-5 TLIF 09/21/16. Exam Results Vital Signs Date Time Temp Pulse Resp B/P Pulse Ox O2 Delivery O2 Flow Rate FiO2 09/23/16 12:00 98.7 77 18 112/59 94 09/22/16 09:52 21 09/21/16 21:43 Nasal Cannula 2.00 Intake and Output 09/22/16 09/22/16 09/22/16 07:59 15:59 23:59 Intake Total 1067 ml 450 ml 360 ml Output Total 350 ml 250 ml 850 ml Balance 717 ml 200 ml -490 ml Physical Examination Respirations clear to auscultation Cardiac regular without murmur Abdomen soft nontender. Positive bowel sounds Mild lower extremity edema Sensation mildly diminished primarily posterior lateral aspect right calf and diffuse right foot to light touch. Right lower extremity strength is 1/5 tibialis anterior, 1-2/5 tibialis posterior and peroneus longus and brevis, 2/5 gastrocsoleus Sensation to light touch and motor function intact left lower extremity Medical Decision Making Impression and Plan Impression: 1. Stable neurologic exam status post L4 5 interbody fusion. Plan: Discussed with patient. Advance diet and activity as tolerated Remains quite painful. Pain medications adjusted. Anticipate discharge to [place] inpatient rehabilitation on Saturday. Mann Tubbs MD Sep 23, 2016 15:08
[2016-09-23] MEDS ORDERED: HYDROmorphone HCL 2 MG TAB PO PRN (15:15)
[2016-09-23] MEDS ORDERED: MORPHINE SULFATE 4 MG/ML INJ IV PUSH PRN (15:15)
--- NOTE | 2016-09-23 15:35 | HHI.NSPN ---
History Chief Complaint: Low back pain Interval History 09/22: 86-year-old male with chronic right foot drop. Status post L4-5 TLIF 09/21. 09/23: Patient states that he is doing good when seen with Dr Tubbs this afternoon. When doing the ROS the patient answers affirmatively to everything. He appears comfortable as he is laying in bed. System Review Comments Attempted to perform ROS but patient answered affirmative to everything asked - headache, dizziness, numbness, tingling, shortness of breath, productive cough, chest pain, palpitations, irregular heartbeat; any accuracy to the ROS is doubtful. Exam Results Vital Signs Date Time Temp Pulse Resp B/P Pulse Ox O2 Delivery O2 Flow Rate FiO2 09/23/16 12:00 98.7 77 18 112/59 94 09/22/16 09:52 21 09/21/16 21:43 Nasal Cannula 2.00 Intake and Output 09/22/16 09/22/16 09/23/16 08:00 16:00 00:00 Intake Total 1067 ml 450 ml 360 ml Output Total 350 ml 250 ml 850 ml Balance 717 ml 200 ml -490 ml Physical Examination General: Asleep but awakens to verbal stimuli, then alert. Readily interacts, appears comfortable w/NAD, affect appears normal. Respiratory: CTAB w/o W/R/R, equal excursion, nonlaboured, on RA. Cardiovascular: S1S2 w/RRR w/o M/G/R, radial & pedal pulses 2+ bilaterally, cap refill < 2 sec, no pedal edema. Gastrointestinal: Abdomen soft, nontender, positive bowel sounds. Musculoskeletal: Moves both upper & left lower extremities without difficulty, both hips/buttocks TTP R>L. Back TTP to surgical incision. Integumentary: Intact lumbar surgical dressing w/shadowing noted, no evident erythema or streaking, no rashes, ulceration or other lesions noted. Neurological: Asleep but awakens to verbal stimuli, after that alert, oriented to person & place but not time Speech clear & appropriate Sensation to LLE & right thigh intact to light touch but decreased from right knee down stating it feels cold Motor strength 5/5 to all major flexion & extension muscle groups LLE Motor strenth RLE: hip flexion 4 to 4+/5, knee extension 4+ to 5/5, knee flexion 3/5, plantar extension 2/5, plantar flexion 0/5, foot eversion & inversion 1 to 2/5 Medical Decision Making Impression and Plan Impression: Stable neurologic exam status post L4 5 interbody fusion. Plan: Discussed with patient. Mobilise patient w/assistance. Brace when OOB. Diet as tolerated. Anticipate discharge to inpatient rehab at [place] on Saturday. Antonio Ramirez Sep 23, 2016 15:35
[2016-09-23 16:00] VITALS: BP 102/58; PULSE 68; RESP 18; TEMP 99.6; O2SAT 92
[2016-09-23 20:12] VITALS: BP 105/59; PULSE 69; RESP 17; TEMP 96.1; O2SAT 92
[2016-09-23] MEDS: ASPIRIN 325 MG TAB PO SCH (20:33)
[2016-09-23] MEDS: FENOFIBRATE 145 MG TAB PO SCH (20:33)
[2016-09-23] MEDS: MAGNESIUM HYDROXIDE SUSP 30 ML CUP PO PRN (20:33)
[2016-09-23] MEDS: INSULIN DETEMIR 100 UNITS/ML VIAL SQ SCH (20:34)
[2016-09-23] MEDS: ATORVASTATIN 40 MG TAB PO SCH (20:34)
[2016-09-24 00:55] VITALS: BP 113/66; PULSE 74; RESP 18; TEMP 97; O2SAT 92
[2016-09-24] MEDS: CARBIDOPA/LEVODOPA 25 MG/100 MG TAB PO SCH ×2 (06:33→13:32)
[2016-09-24] MEDS: INSULIN NovoLIN REGULAR SUPPLEMENTAL SCALE SQ SCH ×2 (06:33→11:00)
[2016-09-24 08:00] VITALS: BP 123/70; PULSE 70; RESP 17; TEMP 97.3; O2SAT 94
[2016-09-24] MEDS: MULTIVITAMIN-OPHTHALMIC 1 TAB PO SCH (09:11)
[2016-09-24] MEDS: CALCIUM/VITAMIN D 250 MG/125 U TAB PO SCH (09:11)
[2016-09-24] MEDS: LACTULOSE SYRUP 20 GM/30 ML CUP PO SCH (09:11)
[2016-09-24] MEDS: DOCUSATE SODIUM 100 MG CAP PO SCH (09:11)
[2016-09-24] MEDS: VENLAFAXINE HCL XR 37.5 MG CAP PO SCH (09:11)
[2016-09-24] MEDS: MIDODRINE 5 MG TAB PO SCH (09:12)
[2016-09-24] MEDS: GABAPENTIN 300 MG CAP PO SCH ×2 (09:12→12:24)
[2016-09-24] MEDS: ACETAMINOPHEN/HYDROcodone 325 MG/10 MG TAB PO PRN ×2 (09:12→13:31)
[2016-09-24] MEDS: METOPROLOL TARTRATE 25 MG TAB PO SCH (09:13)
[2016-09-24] MEDS: FAMOTIDINE 20 MG TAB PO SCH (09:13)
[2016-09-24] MEDS: SODIUM CHLORIDE 0.9% FLUSH 10 ML FLUSH IV FLUSH SCH (09:13)
--- NOTE | 2016-09-24 09:44 | HHI.PR ---
Subjective Remarks 86-year-old male with history of chronic low back pain with right foot drop with radiculopathy and numbness, previous back surgery, hypertension, Parkinson' s, diabetes mellitus, hyperlipidemia, CAD with h/o CABG and aortic valve replacement, sleep apnea who came to same day surgery for scheduled procedure by Dr. Joshua. The patient had previous back surgery done by Dr. Joshua. The patient complained of right buttock, him and left lateral cough pain with sitting position. Worse pain events in lateral keep. His left leg is also stiff, but denies severe pain in the left leg. He also has a right foot drop. Patient had recurrent disc herniation at L4 -5 level and is status post surgery by Dr. Joshua. The patient was seen in PACU. The hospitalist was consulted for medical management. The patient denies having chest pain, shortness of breath, nausea, vomiting, diarrhea or constipation. No fever or chills. Pain is controlled by medications. 09/22: Seen in his bedroom, in the presence of nurse Miss Perdomo, no nausea, vomit or diarrhea, is been confused, received pain medicine and Ambien will remove Ambien from his medicines to avoid major confusional episodes and try to limit his narcotic pain medicine. 09/23: continue with Confusion probable related to Surgical management and also baseline Dementia. 09/24: Stable has Constipation, no nausea, or vomit, discussed with nurse Mr. Estrella the patient did not want to get Physical Therapy yesterday due to pain but he is able to move well his legs, given Lactulose for Constipation. Objective Vital Signs Date Time Temp Pulse Resp B/P Pulse Ox O2 Delivery O2 Flow Rate FiO2 09/24/16 08:00 97.3 70 17 123/70 94 09/24/16 00:55 97.0 74 18 113/66 92 09/23/16 20:12 96.1 69 17 105/59 92 09/23/16 16:00 99.6 68 18 102/58 92 09/23/16 12:00 98.7 77 18 112/59 94 I/O 09/23/16 09/23/16 09/23/16 09/24/16 09/24/16 09/24/16 07:00 15:00 23:00 07:00 15:00 23:00 Intake Total 0 ml 720 ml 120 ml 240 ml Output Total 200 ml 500 ml 1150 ml Balance -200 ml 720 ml -380 ml -910 ml Intake Oral 0 ml 720 ml 120 ml 240 ml Output Urine Total 200 ml 500 ml 1150 ml # Voids 3 # Bowel Movements 0 0 0 Result Diagram: 09/21/16 1736 09/22/16 0720 Imaging Last Impressions Lumbar Spine X-Ray 09/21/16 0000 Signed Impressions: Service Date/Time: Wednesday, September 21, 2016 14:04 - CONCLUSION: Spot fluoroscopic image, as above. Nacho Strickland MD Procedures Status post Lumbar L4-5 transforaminal interbody fusion; L4-5 redo decompressive laminectomies; L4-5 pedicle screw fixation; L4-5 interbody cage placement; microsurgical technique on 09/21/16 by Josiane Segal Other Results Laboratory Tests Test 09/21/16 09/21/16 09/22/16 11:45 17:36 07:20 Blood Type A POSITIVE Antibody Screen NEGATIVE Blood Bank Comment White Blood Count 9.8 TH/MM3 Red Blood Count 3.84 MIL/MM3 Hemoglobin 11.9 GM/DL Hematocrit 35.6 % Mean Corpuscular Volume 92.8 FL Mean Corpuscular Hemoglobin 31.0 PG Mean Corpuscular Hemoglobin 33.4 % Concent Red Cell Distribution Width 14.4 % Platelet Count 215 TH/MM3 Mean Platelet Volume 7.6 FL Neutrophils (%) (Auto) 73.9 % Lymphocytes (%) (Auto) 18.3 % Monocytes (%) (Auto) 5.5 % Eosinophils (%) (Auto) 1.6 % Basophils (%) (Auto) 0.7 % Neutrophils # (Auto) 7.3 TH/MM3 Lymphocytes # (Auto) 1.8 TH/MM3 Monocytes # (Auto) 0.5 TH/MM3 Eosinophils # (Auto) 0.2 TH/MM3 Basophils # (Auto) 0.1 TH/MM3 CBC Comment DIFF FINAL Differential Comment Sodium Level 138 MEQ/L Potassium Level 3.9 MEQ/L Chloride Level 102 MEQ/L Carbon Dioxide Level 28.3 MEQ/L Anion Gap 8 MEQ/L Blood Urea Nitrogen 22 MG/DL Creatinine 1.65 MG/DL Estimat Glomerular Filtration 40 ML/MIN Rate Random Glucose 168 MG/DL Calcium Level 8.3 MG/DL Objective Remarks GENERAL: Well-developed patient, in no apparent distress. SKIN: No rashes, ecchymoses or lesions. Cool and dry. HEAD: Atraumatic. Normocephalic. No temporal or scalp tenderness. EYES: Pupils equal round and reactive. NECK: Trachea midline. No JVD or lymphadenopathy. CARDIOVASCULAR: Regular rate and rhythm without murmurs, gallops, or rubs. RESPIRATORY: Clear to auscultation. Breath sounds equal bilaterally. No wheezes , rales, or rhonchi. GASTROINTESTINAL: Abdomen soft, non-tender, nondistended. No hepato- splenomegaly. MUSCULOSKELETAL: Extremities without clubbing, cyanosis, or edema. NEUROLOGICAL: Awake and alert. Oriented in place and Person. Medications and IVs Current Medications Medications (Trade) Dose Ordered Sig/Traci Route Start Time Stop Time Status Last Admin (NS 500 ml Inj) 500 ml @ 30 mls/hr [id number] PRN IV 09/21/16 12:15 09/24/16 12:14 (Aspirin) 325 mg HS PO 09/21/16 21:00 09/23/16 20:33 (Sinemet 25-100 Mg) 2.5 tab Q8HR PO 09/21/16 22:00 09/24/16 06:33 (Tricor) 145 mg HS PO 09/21/16 21:00 09/23/16 20:33 (Neurontin) 300 mg TID PO 09/21/16 18:00 09/24/16 09:12 (Lopressor) 25 mg BID PO 09/21/16 21:00 09/24/16 09:13 (Proamatine) 5 mg BID PO 09/21/16 21:00 09/24/16 09:12 (Ocuvite) 1 tab DAILY PO 09/22/16 09:00 09/24/16 09:11 (NS Flush) 2 ml UNSCH PRN IV FLUSH 09/21/16 17:00 (NS Flush) 2 ml BID IV FLUSH 09/21/16 21:00 09/24/16 09:13 (Colace) 100 mg BID PO 09/21/16 21:00 09/24/16 09:11 (Milk Of Magnesia Liq) 30 ml DAILY PRN PO 09/21/16 17:00 09/23/16 20:33 (Mag-Al Plus Susp Liq) 30 ml Q6H PRN PO 09/21/16 17:00 (Reglan Inj) 10 mg Q8H PRN IVS 09/21/16 17:00 Ondansetron HCl 4 mg 4 mg Q6H PRN IV 09/21/16 17:00 Calcium Gluconate 1 gm/Sodium Chloride 110 ml @ 110 mls/hr UNSCH PRN IV 09/21/16 17:00 Potassium Chloride 100 ml @ 50 mls/hr UNSCH PRN IV 09/21/16 17:00 (Magnesium Sulfate Inj/NS Inj) 104 ml @ 100 mls/hr UNSCH PRN IV 09/21/16 17:00 ([place] 10-325 Mg) 1 tab Q4H PRN PO 09/21/16 17:00 09/24/16 09:12 (Flexeril) 10 mg Q8H PRN PO 09/21/16 17:00 09/23/16 09:02 (Catapres) 0.1 mg Q6H PRN PO 09/21/16 17:00 (Tylenol) 650 mg Q4H PRN PO 09/21/16 17:00 ([place]) 1 lozenge UNSCH PRN BUCCAL 09/21/16 17:00 09/22/16 20:30 (D50w (Vial) Inj) 50 ml UNSCH PRN IV 09/21/16 17:00 (Glucagon Inj) 1 mg UNSCH PRN OTHER 09/21/16 17:00 (Lactulose Liq) 30 ml DAILY PO 09/22/16 09:00 09/24/16 09:11 (Pill Splitter) 1 ea UNSCH PRN OTHER 09/21/16 18:15 (Oscal-D 250-125) 500 mg BID PO 09/21/16 21:00 09/24/16 09:11 (Pepcid) 20 mg DAILY PO 09/22/16 09:00 09/24/16 09:13 (Lipitor) 40 mg HS PO 09/21/16 21:00 09/23/16 20:34 Patient Own Medication PT OWN MED: COMTAN(ENTACAPONE) 200 MG PO TID TID PO 09/22/16 09:00 Hold Patient Own Medication PT OWN MED: TRADJENTA(LINAGLIPTIN... DAILY PO 09/22/16 09:00 Hold (Effexor Xr) 37.5 mg BID PO 09/21/16 21:00 09/24/16 09:11 (Levemir Inj) 10 units HS SQ 09/22/16 21:00 09/23/16 20:34 (Dilaudid) 2 mg Q4H PRN PO 09/23/16 15:15 (Morphine Inj) 4 mg Q3H PRN IV PUSH 09/23/16 15:15 A/P Assessment and Plan Recurrent disc herniation at the L4-5 level both spinal and foraminal stenosis. Facet arthropathy and degenerative disc disease of the level of L2-3, L3-4, L4- 5 and L5-S1. Status post Lumbar L4-5 transforaminal interbody fusion; L4-5 redo decompressive laminectomies; L4-5 pedicle screw fixation; L4-5 interbody cage placement; microsurgical technique on 09/21/16 by Josiane Segal Continue management per surgeon Hypertension: controlled. Diabetes mellitus type 2. continue sliding scale. controlled on present care. Hyperlipidemia continue home meds CAD status post CABG continue home meds . No chest pain at this time Sleep apnea. Monitor O2 saturation. O2 by nasal canula as need. Patient to bring his own CPAP machine from home Metabolic Encephalopathy multifactorial secondary to Surgical procedure and baseline Dementia move on to Rehab will help the patient. Constipation given Lactulose. DVT prophylaxis as per Surgical Team Discussed Condition With Patient and Nurse Mr. Estrella, all questions answered to the best of my abilities. Discharge Planning as per Attending physician. Okay to discharge from Medicine standpoint. Yan Toro MD Sep 24, 2016 09:44
[2016-09-24 11:40] VITALS: BP 103/67; PULSE 74; RESP 17; TEMP 98.6; O2SAT 93
--- NOTE | 2016-09-24 12:12 | HHI.NSPN ---
Note Status Status: Progress Note Interval History Interval History 09/22: 86-year-old male with chronic right foot drop. Status post L4-5 TLIF 09/21. 09/23: Patient states that he is doing good when seen with Dr Tubbs this afternoon. When doing the ROS the patient answers affirmatively to everything. He appears comfortable as he is laying in bed. 09/24: c/o surgical pain when tries to move, eager to go to rehab. stable right foot drop. Labs, Micro, & Vital Signs Results Date Time Temp Pulse Resp B/P Pulse Ox O2 Delivery O2 Flow Rate FiO2 09/24/16 11:40 98.6 74 17 103/67 93 09/24/16 08:00 97.3 70 17 123/70 94 09/24/16 00:55 97.0 74 18 113/66 92 09/23/16 20:12 96.1 69 17 105/59 92 09/23/16 16:00 99.6 68 18 102/58 92 09/24/16 06:59 Intake Total 840 ml Output Total 500 ml Balance 340 ml Constitutional Vital Signs Date Time Temp Pulse Resp B/P Pulse Ox O2 Delivery O2 Flow Rate FiO2 09/24/16 11:40 98.6 74 17 103/67 93 09/24/16 08:00 97.3 70 17 123/70 94 09/24/16 00:55 97.0 74 18 113/66 92 09/23/16 20:12 96.1 69 17 105/59 92 09/23/16 16:00 99.6 68 18 102/58 92 09/24/16 06:59 Intake Total 840 ml Output Total 500 ml Balance 340 ml Review of Systems/Exam Exam Alert, follows commands. Speech appropriate. CN: pupils equal, facial motor symmetric Neck: soft, supple Abd: soft, nontender Lumbar wound healing well, madeline intact. with dry dressing in place. Motor strength: lower extremities, iliopsoas, quads, hamstrings 4+ to 5- with complaint of surgical pain, right tibialis anterior 0-1/5, left anterior tibialis 5/5. Sensory: reports intact to light touch in LE's b/l Heart: NSR Lungs: CTA b/l Medications Current Medications Current Medications Medications (Trade) Dose Ordered Sig/Traci Route PRN Reason Start Time Stop Time Status Last Admin Dose Admin Sodium Chloride (NS 500 ml Inj) 500 ml @ 30 mls/hr [id number] PRN IV SEE LABEL COMMENTS 09/21/16 12:15 09/24/16 12:14 Aspirin (Aspirin) 325 mg HS PO 09/21/16 21:00 09/23/16 20:33 Carbidopa/Levodopa (Sinemet 25-100 Mg) 2.5 tab Q8HR PO 09/21/16 22:00 09/24/16 06:33 Fenofibrate (Tricor) 145 mg HS PO 09/21/16 21:00 09/23/16 20:33 Gabapentin (Neurontin) 300 mg TID PO 09/21/16 18:00 09/24/16 09:12 Metoprolol Tartrate (Lopressor) 25 mg BID PO 09/21/16 21:00 09/24/16 09:13 Midodrine (Proamatine) 5 mg BID PO 09/21/16 21:00 09/24/16 09:12 Vit C/Vit E/Zinc/ Copper/Lutein (Ocuvite) 1 tab DAILY PO 09/22/16 09:00 09/24/16 09:11 Sodium Chloride (NS Flush) 2 ml UNSCH PRN IV FLUSH FLUSH AFTER USING IV ACCESS 09/21/16 17:00 Sodium Chloride (NS Flush) 2 ml BID IV FLUSH 09/21/16 21:00 09/24/16 09:13 Docusate Sodium (Colace) 100 mg BID PO 09/21/16 21:00 09/24/16 09:11 Magnesium Hydroxide (Milk Of Magnesia Liq) 30 ml DAILY PRN PO CONSTIPATION 09/21/16 17:00 09/23/16 20:33 Al Hydrox/Mg Hydrox/Simethicone (Mag-Al Plus Susp Liq) 30 ml Q6H PRN PO DYSPEPSIA 09/21/16 17:00 Metoclopramide HCl (Reglan Inj) 10 mg Q8H PRN IVS nausea if zofran ineffective 09/21/16 17:00 Ondansetron HCl 4 mg 4 mg Q6H PRN IV NAUSEA OR VOMITING 09/21/16 17:00 Calcium Gluconate 1 gm/Sodium Chloride 110 ml @ 110 mls/hr UNSCH PRN IV SEE LABEL COMMENTS 09/21/16 17:00 Potassium Chloride 100 ml @ 50 mls/hr UNSCH PRN IV POTASSIUM LESS THAN 4 09/21/16 17:00 Magnesium Sulfate/ Sodium Chloride (Magnesium Sulfate Inj/NS Inj) 104 ml @ 100 mls/hr UNSCH PRN IV MAGNESIUM LESS THAN 2 09/21/16 17:00 Acetaminophen/ Hydrocodone Bitart ([place] 10-325 Mg) 1 tab Q4H PRN PO PAIN SCALE 1 TO 5 09/21/16 17:00 09/24/16 09:12 Cyclobenzaprine HCl (Flexeril) 10 mg Q8H PRN PO MUSCLE SPASM 09/21/16 17:00 09/23/16 09:02 Clonidine (Catapres) 0.1 mg Q6H PRN PO SYS BP GREATER THAN 170 MMHG 09/21/16 17:00 Acetaminophen (Tylenol) 650 mg Q4H PRN PO TEMPERATURE > 101.5 F 09/21/16 17:00 Menthol ([place]) 1 lozenge UNSCH PRN BUCCAL SORE THROAT 09/21/16 17:00 09/22/16 20:30 Dextrose (D50w (Vial) Inj) 50 ml UNSCH PRN IV HYPOGLYCEMIA-SEE COMMENTS 09/21/16 17:00 Glucagon (Glucagon Inj) 1 mg UNSCH PRN OTHER HYPOGLYCEMIA-SEE COMMENTS 09/21/16 17:00 Lactulose (Lactulose Liq) 30 ml DAILY PO 09/22/16 09:00 09/24/16 09:11 Miscellaneous (Pill Splitter) 1 ea UNSCH PRN OTHER SEE LABEL COMMENTS 09/21/16 18:15 Calcium/Vitamin D (Oscal-D 250-125) 500 mg BID PO 09/21/16 21:00 09/24/16 09:11 Famotidine (Pepcid) 20 mg DAILY PO 09/22/16 09:00 09/24/16 09:13 Atorvastatin Calcium (Lipitor) 40 mg HS PO 09/21/16 21:00 09/23/16 20:34 Patient Own Medication PT OWN MED: COMTAN(ENTACAPONE) 200 MG PO TID TID PO 09/22/16 09:00 Hold Patient Own Medication PT OWN MED: TRADJENTA(LINAGLIPTIN... DAILY PO 09/22/16 09:00 Hold Venlafaxine HCl (Effexor Xr) 37.5 mg BID PO 09/21/16 21:00 09/24/16 09:11 Insulin Detemir (Levemir Inj) 10 units HS SQ 09/22/16 21:00 09/23/16 20:34 Hydromorphone HCl (Dilaudid) 2 mg Q4H PRN PO PAIN SCALE 6 TO 10 09/23/16 15:15 Morphine Sulfate (Morphine Inj) 4 mg Q3H PRN IV PUSH BREAKTHROUGH PAIN 09/23/16 15:15 Medical Decision Making MDM Remarks 86 y/o male status post L4-5 TLIF 09/21/[address] Joshua chronic right foot drop Plan Plan Remarks neuro stable, cont supportive care prn for pain IS every hour maintain LSO when OOB, encourage mobilization [facility] rx Lortab 5/325, 1 tab q 8 hrs prn pain #21 Khadra Camilo Sep 24, 2016 12:12
--- NOTE | 2016-09-24 12:17 | HHI.DCPOC ---
Discharge Care Plan Diagnosis: (1) S/P lumbar spinal fusion Goals to Promote Your Health * To prevent worsening of your condition and complications * To maintain your health at the optimal level Directions to Meet Your Goals Take your medications as prescribed Follow your dietary instruction Follow activity as directed Keep your appointments as scheduled Take your immunizations and boosters as scheduled If your symptoms worsen call your PCP, if no PCP go to Urgent Care Center or Emergency Room Smoking is Dangerous to Your Health. Avoid second hand smoke Call the 24-hour hour crisis hotline for domestic abuse at Khadra Camilo Sep 24, 2016 12:17
== END 2016-09-24 16:09 | DRG 459 ==
LOC: HSDI 09-21 11:03 → N06A 09-21 18:56
PROVIDERS: ADMIT Neurological Surgery; ATTEND Neurological Surgery
PROC: 0SG00AJ Fusion of Lumbar Vertebral Joint with Interbody Fusion Device, Posterior Approach, Anterior Column, Open Approach (ICD-10-PCS; 2016-09-21)
PROC: 0SB20ZZ Excision of Lumbar Vertebral Disc, Open Approach (ICD-10-PCS; principal; 2016-09-21 13:53)
DX: M51.16 Intervertebral disc disorders with radiculopathy, lumbar region (principal); G93.41 Metabolic encephalopathy; E11.22 Type 2 diabetes mellitus with diabetic chronic kidney disease; G20 Parkinson's disease; G96.19 Other disorders of meninges, not elsewhere classified; M21.371 Foot drop, right foot; G47.30 Sleep apnea, unspecified; I25.10 Atherosclerotic heart disease of native coronary artery without angina pectoris; M51.37 Other intervertebral disc degeneration, lumbosacral region; M48.06 Spinal stenosis, lumbar region; M46.90 Unspecified inflammatory spondylopathy, site unspecified; M43.16 Spondylolisthesis, lumbar region; E78.5 Hyperlipidemia, unspecified; I12.9 Hypertensive chronic kidney disease with stage 1 through stage 4 chronic kidney disease, or unspecified chronic kidney disease; N18.3 Chronic kidney disease, stage 3 (moderate); F02.80 Dementia in other diseases classified elsewhere, unspecified severity, without behavioral disturbance, psychotic disturbance, mood disturbance, and anxiety; K59.00 Constipation, unspecified; Z79.84 Long term (current) use of oral hypoglycemic drugs; Z82.3 Family history of stroke; Z82.49 Family history of ischemic heart disease and other diseases of the circulatory system; Z83.3 Family history of diabetes mellitus; Z87.891 Personal history of nicotine dependence; Z95.1 Presence of aortocoronary bypass graft; Z95.2 Presence of prosthetic heart valve
CPT/HCPCS: 72100; 76000; 80048; 82948; 85025; 86850; 86900; 86901; 94150; C1713; J0131; J0690; J1815; J2250; J2270; J2370; J2405; J3010; J3370; J3480; J7050; J7120; L0627

== ENCOUNTER 2016-10-16 21:08 | Inpatient (IN) | payer MEDICARE ==
[~2016-10-16] VITALS: Ht 180.3 cm; Wt 85.0 kg
[~2016-10-16 21:08] MED LIST changes: -COLA100C PO; +CYCL1TAB29 PO; -HYDR-3533 PO; +OXYC1TAB36 PO; +SENN1TAB PO; +WHEEMIS3
[2016-10-16 21:19] VITALS: BP 149/71; PULSE 90; RESP 18; TEMP 101.9; O2SAT 99
[2016-10-16 21:23] VITALS: BP 149/71; PULSE 81; RESP 18; TEMP 101.9
--- NOTE | 2016-10-16 21:40 | PD ---
HPI Chief Complaint: AMS, fever Time Seen by Provider: 21:37 Travel History International Travel<30 days: No Contact w/Intl Traveler<30days: No Traveled to known affect area: No History of Present Illness HPI 86-year-old male presents to the emergency department via EMS for evaluation of altered mental status, fever. Patient was discharge October 12, [address] [facility] after undergoing L4 to L5 transforaminal interbody fusion , redo decompression laminectomy, pedicle screw fixation on September 21, [address] Joshua. Apparently, he was his usual state of health until approximately 2 days ago became increasingly confused. Patient is a poor historian. He denies any complaints to me. No headache. No chest pain shortness breath. No abdominal pain. No nausea, vomiting, diarrhea. Incision site to the back is without erythema or drainage. Patient is a past medical history of diabetes, Parkinson's disease, RASHMI, hypertension, CAD status post CABG 3 and AVR. 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) Cerebrovascular Accident: No Coronary Artery Disease: Yes Diabetes: Yes Patient Takes Glucophage: No (takes glipizide last dose 20 pm) Diminished Hearing: Yes (NIKOLAI) Endocrine: Yes Gastrointestinal Disorders: Yes (GERD) GERD: Yes Genitourinary: No Headaches: No Hepatitis: No Hiatal Hernia: No Hypertension: Yes Immune Disorder: No Kidney Stones: No Musculoskeletal: Yes Neurologic: Yes (PARKINSON'S) Parkinson's Disease: Yes Psychiatric: Yes Reproductive: No Respiratory: Yes Immunizations Current: No Migraines: No Radiation Therapy: No Renal Failure: No Seizures: No Sickle Cell Disease: No Sleep Apnea: Yes (NO CPAP) Thyroid Disease: No Ulcer: No Tetanus Vaccination: Unknown Influenza Vaccination: No Past Surgical History Abdominal Surgery: No AICD: No Arteriovenous Shunt: No Body Medical Devices: BOVINE VALVE, TOOTH IMPLANT, LLE STENTS Cardiac Surgery: Yes (CABG, AORTIC VALVE REPLACEMENT ) Coronary Artery Bypass Graft: Yes (3 VESSELS) Ear Surgery: No Endocrine Surgery: No Eye Surgery: No Genitourinary Surgery: No Gynecologic Surgery: No Insulin Pump: No Joint Replacement: No Neurologic Surgery: No Oral Surgery: Yes (TONSILLECTOMY, TOOTH IMPLANT) Pacemaker: No Thoracic Surgery: No Other Surgery: Yes Social History Alcohol Use: No Tobacco Use: No Substance Use: No Allergies-Medications (Allergen,Severity, Reaction): Coded Allergies: No Known Allergies (Unverified , 10/16/16) Reported Meds & Prescriptions Reported Meds & Active Scripts Active Wheelchair (Device) 1 Mis Mis 1 Ea .ROUTE DIRECTED Oxycodone-Acetaminophen 10-325 mg Tab 1-2 Tab PO Q6HR PRN Flexeril (Cyclobenzaprine HCl) 10 Mg Tab 10 Mg PO Q8H PRN Senna Plus 8.6-50 mg (Sennosides-Docusate Sodium) 1 Tab Tab 1 Tab PO BID Metoprolol Tartrate 25 Mg Tab 12.5 Mg PO BID Zantac (Ranitidine HCl) 150 Mg Tab 150 Mg PO DAILY Midodrine 5 Mg Tab 5 Mg PO BID Gabapentin 300 Mg Cap 300 Mg PO TID [place] Extra D3 (Calcium Carbonate-Cholecalciferol) 500-600 Mg-Unit Tab 1 Tab PO BID Ocuvite (Multiple Vitamins W/ Minerals) 1 Tab 1 Tab PO DAILY Crestor (Rosuvastatin Calcium) 20 Mg Tab 20 Mg PO HS Aspirin 325 Mg Tab 325 Mg PO HS Effexor (Venlafaxine HCl) 37.5 Mg Tab 37.5 Mg PO Q12H Plavix (Clopidogrel Bisulfate) 75 Mg Tab 75 Mg PO DAILY Glipizide 10 Mg Tab 10 Mg PO BIDAC Take 30 minutes before a meal Reported Entacapone 200 Mg Tab 200 Mg PO TID administered concomitantly with each levodopa/carbidopa dose Sinemet (Carbidopa-Levodopa) 25-100 Mg Tab 2.5 Tab PO Q8HR Tradjenta (Linagliptin) 5 Mg Tab 5 Mg PO DAILY Fenofibrate 145 Mg Tab 145 Mg PO HS Review of Systems Except as stated in HPI: all other systems reviewed are Neg Physical Exam Narrative GENERAL: Well-nourished, well-developed male patient. Temperature is 99.5 orally. Patient is alert and oriented to person and place. SKIN: Focused skin assessment warm/dry. Incision to midline lumbar spine appears well without erythema or drainage. HEAD: Normocephalic. Atraumatic. EYES: No scleral icterus. No injection or drainage. NECK: Supple, trachea midline. No JVD or lymphadenopathy. CARDIOVASCULAR: Regular rate and rhythm without murmurs, gallops, or rubs. Bilateral radial and pedal pulses are 2+. RESPIRATORY: Breath sounds equal bilaterally. No accessory muscle use. Lungs sounds slightly diminished. GASTROINTESTINAL: Abdomen soft, non-tender, nondistended. MUSCULOSKELETAL: No cyanosis, or edema. BACK: Nontender without obvious deformity. No CVA tenderness. Data Data Last Documented VS Vital Signs Date Time Temp Pulse Resp B/P Pulse Ox O2 Delivery O2 Flow Rate FiO2 10/16/16 22:05 99.5 82 18 124/71 97 Orders Electrocardiogram (10/16/16 21:31) Complete Blood Count With Diff (10/16/16 21:31) Comprehensive Metabolic Panel (10/16/16 21:31) Prothrombin Time / Inr (Pt) (10/16/16 21:31) Act Partial Throm Time (Ptt) (10/16/16 21:31) Lactic Acid Sepsis Protocol (10/16/16 21:31) Magnesium (Mg) (10/16/16 21:31) Ckmb (Isoenzyme) Profile (10/16/16 21:31) Troponin I (10/16/16 21:31) Urinalysis - C+S If Indicated (10/16/16 21:31) Blood Culture (10/16/16 21:31) Chest, Single Ap (10/16/16 21:31) Blood Glucose (10/16/16 21:31) Ecg Monitoring (10/16/16 21:31) Iv Access Insert/Monitor (10/16/16 21:31) Oximetry (10/16/16 21:31) Oxygen Administration (10/16/16 21:31) Acetaminophen (Tylenol) (10/16/16 21:45) Cath For Specimen (10/16/16 21:31) Sodium Chlor 0.9% 1000 Ml Inj (Ns 1000 M (10/16/16 21:45) Ct Brain W/O Iv Contrast(Rout) (10/16/16 ) Vancomycin Inj (Vancomycin Inj) (10/16/16 22:30) Piperacil-Tazo 4.5 Gm Premix (Zosyn 4.5 (10/16/16 22:30) Urine Culture (10/16/16 21:40) Labs Laboratory Tests Test 10/16/16 10/16/16 10/16/16 21:30 21:40 22:10 White Blood Count 15.8 TH/MM3 Red Blood Count 3.80 MIL/MM3 Hemoglobin 11.3 GM/DL Hematocrit 34.3 % Mean Corpuscular Volume 90.4 FL Mean Corpuscular Hemoglobin 29.7 PG Mean Corpuscular Hemoglobin 32.8 % Concent Red Cell Distribution Width 14.6 % Platelet Count 245 TH/MM3 Mean Platelet Volume 6.8 FL Neutrophils (%) (Auto) 87.6 % Lymphocytes (%) (Auto) 5.8 % Monocytes (%) (Auto) 6.1 % Eosinophils (%) (Auto) 0.2 % Basophils (%) (Auto) 0.3 % Neutrophils # (Auto) 13.9 TH/MM3 Lymphocytes # (Auto) 0.9 TH/MM3 Monocytes # (Auto) 1.0 TH/MM3 Eosinophils # (Auto) 0.0 TH/MM3 Basophils # (Auto) 0.0 TH/MM3 CBC Comment DIFF FINAL Differential Comment Prothrombin Time 12.3 SEC Prothromb Time International 1.1 RATIO Ratio Activated Partial 30.9 SEC Thromboplast Time Urine Color YELLOW Urine Turbidity HAZY Urine pH 6.0 Urine Specific [place] 1.007 Urine Protein TRACE mg/dL Urine Glucose (UA) 300 mg/dL Urine Ketones NEG mg/dL Urine Occult Blood MOD Urine Nitrite NEG Urine Bilirubin NEG Urine Urobilinogen LESS THAN 2.0 MG/DL Urine Leukocyte Esterase LARGE Urine RBC 10 /hpf Urine WBC /hpf Urine WBC Clumps RARE Urine Amorphous Sediment RARE Urine Bacteria MANY /hpf Microscopic Urinalysis Comment CATH-CULTURE IND Lactic Acid Level 1.7 mmol/L [facility] Medical Decision Making Medical Screen Exam Complete: Yes Emergency Medical Condition: Yes Medical Record Reviewed: Yes Interpretation(s) chest x-ray - CONCLUSION: Bibasilar infiltrates and small pleural effusions Differential Diagnosis Sepsis versus UTI versus pneumonia versus electrolyte abnormality versus dehydration versus intracranial abnormality Narrative Course 86-year-old male presents to the emergency department via EMS for evaluation of altered mental status for the past 2 days. EKG, CBC, CMP, PTT, PTT/INR, magnesium, lactic acid, CK, troponin, UA, blood cultures 2, chest x-ray are ordered and pending. CT of the brain is ordered and pending. Patient is given normal saline 1 L IV bolus. Once patient's arrived at bedside, she states that his symptoms started last night. He has become more belligerent and confused. She states she took his temperature last night was 102.0. He has not had a fever since according to her. She did give him Tylenol at midnight. However, he has becoming increasingly confused and more belligerent. His son at bedside states that he doesn't even know who he or his mother are. EKG shows sinus rhythm, heart rate 83. CBC shows leukocytosis 15.8, hemoglobin 11.3, hematocrit 34.3. Lactic acid is 1.7. Rest of the lab work is pending UA shows moderate occult blood, large leukocyte esterase, innumerable WBCs. PT is 12.3, INR 1.1, PTT 30.9. Chest x-ray shows bibasilar infiltrates and small pleural effusions. CT of the brain is pending. Patient is started on Vancomycin 1 gm IV, Zosyn 4.[address] Aguilar will resume care and disposition of patient. Mindy Decker Oct 16, 2016 21:40
[2016-10-16] MEDS ORDERED: SODIUM CHLOR 0.9% 1000 ML INJ 1,000 ML IV ONE (21:45)
[2016-10-16] MEDS ORDERED: ACETAMINOPHEN 325 MG TAB PO ONE (21:45)
[2016-10-16 22:05] VITALS: BP 124/71; PULSE 82; RESP 18; TEMP 99.5; O2SAT 97
[2016-10-16 22:14] LABS: BACTERIA, URINE MANY /hpf; BLOOD, URINE MOD (NEG); GLUCOSE,URINE 300 mg/dL (NEG); KETONE, URINE NEG (NEG); NITRITE,URINE NEG (NEG); URINE COLOR YELLOW (YELLW/STRAW)
--- NOTE | 2016-10-16 22:17 | RADRPT ---
EXAM DATE/TIME: 10/16/2016 21:52 [facility] COMPARISON: CHEST SINGLE AP, October 03, 2016, 13:28. INDICATIONS : Fever. MEDICAL HISTORY : Hypertension. Diabetes mellitus type II. Cardiovascular disease. SURGICAL HISTORY : CABG. ENCOUNTER: Initial ACUITY: 1 day PAIN SCORE: Non-responsive. LOCATION: Bilateral chest FINDINGS: Mild bibasilar infiltrate present. There are small bilateral pleural effusions as well. Right pleural effusion is slightly loculated laterally. No pneumothorax. Heart size stable, within normal limits. Patient has had previous median sternotomy. CONCLUSION: Bibasilar infiltrates and small pleural effusions. Nacho Pettit MD on October 16, 2016 at 22:15 Board Certified Radiologist. This report was verified electronically.
[2016-10-16 22:21] LABS: COMMENT (UR) CATH-CULTURE IND; CULTURE IF INDICATED CATH CULTURE IND
[2016-10-16] MEDS ORDERED: PIPERACIL-TAZO 4.5 GM PREMIX 100 ML IV ONE (22:30)
[2016-10-16] MEDS ORDERED: VANCOMYCIN INJ 1,000 MG in SODIUM CHLOR 0.9% 250 ML INJ 250 ML IV ONE (22:30)
[2016-10-16 22:34] LABS: AUTOMATED NEUTROPHIL # 13.9 TH/MM3 (1.8-7.7); BASOPHIL % 0.3 % (0.0-2.0); EOSINOPHIL % 0.2 % (0.0-4.0); HEMATOCRIT 34.3 % (39.0-51.0); HEMO FLAGS DIFF FINAL; LYMPH % 5.8 % (9.0-44.0); LYMPHOCYTE # 0.9 TH/MM3 (1.0-4.8); MEAN CELL VOLUME 90.4 FL (80.0-100.0); MEAN CORPUSCULAR HEMOGLOBIN 29.7 PG (27.0-34.0); MEAN CORPUSCULAR HGB CONC 32.8 % (32.0-36.0); MONO % 6.1 % (0.0-8.0); NEUT % 87.6 % (16.0-70.0); PLATELET COUNT 245 TH/MM3 (150-450); RED CELL DISTRIBUTION WIDTH 14.6 % (11.6-17.2); WHITE BLOOD COUNT 15.8 TH/MM3 (4.0-11.0)
[2016-10-16 22:46] LABS: APTT (PATIENT) 30.9 SEC (24.3-30.1); INTERNATIONAL NORMALIZED RATIO 1.1 RATIO; PROTHROMBIN TIME - PATIENT 12.3 SEC (9.8-11.6)
[2016-10-16 22:56] LABS: ANION GAP 7 MEQ/L (5-15); AST (GOT) 19 U/L (15-37); BICARBONATE 27.4 MEQ/L (21.0-32.0); BLOOD UREA NITROGEN 18 MG/DL (7-18); CHLORIDE 96 MEQ/L (98-107); GLOMERULAR FILTRATION RATE 40 ML/MIN (>89); MAGNESIUM 1.8 MG/DL (1.5-2.5); POTASSIUM 3.4 MEQ/L (3.5-5.1); SODIUM (NA) 130 MEQ/L (136-145)
[2016-10-16 22:57] LABS: ALT (GPT) 14 U/L (12-78)
[2016-10-16 23:01] LABS: ALKALINE PHOSPHATASE 79 U/L (45-117); CREATINE KINASE 61 U/L (39-308); TOTAL BILIRUBIN ADULT 0.4 MG/DL (0.2-1.0)
--- NOTE | 2016-10-16 23:06 | PD ---
Physical Exam Date Seen by Provider: Oct 16, 2016 Narrative GENERAL: SKIN: Warm and dry. BACK INCISION WITHOUT ANY ERYTHEMA/CELLULITIC CHANGES AT THIS POINT HEAD: Atraumatic. Normocephalic. EYES: Pupils equal and round. No scleral icterus. No injection or drainage. ENT: No nasal bleeding or discharge. Mucous membranes pink and moist. NECK: Trachea midline. No JVD. CARDIOVASCULAR: Regular rate and rhythm. RESPIRATORY: No accessory muscle use. Breath sounds CRACKLES AT BIBASILAR AREAS GASTROINTESTINAL: Abdomen soft, non-tender, nondistended. MUSCULOSKELETAL: Extremities without clubbing, cyanosis, or edema. No obvious deformities. NEUROLOGICAL: CONFUSED BUT AWAKE. No obvious cranial nerve deficits. Motor grossly within normal limits. Five out of 5 muscle strength in the arms and legs. Normal speech. Data Data Last Documented VS Vital Signs Date Time Temp Pulse Resp B/P Pulse Ox O2 Delivery O2 Flow Rate FiO2 10/16/16 22:05 99.5 82 18 124/71 97 10/16/16 21:35 Nasal Cannula 2 Orders Electrocardiogram (10/16/16 21:31) Complete Blood Count With Diff (10/16/16 21:31) Comprehensive Metabolic Panel (10/16/16 21:31) Prothrombin Time / Inr (Pt) (10/16/16 21:31) Act Partial Throm Time (Ptt) (10/16/16 21:31) Lactic Acid Sepsis Protocol (10/16/16 21:31) Magnesium (Mg) (10/16/16 21:31) Ckmb (Isoenzyme) Profile (10/16/16 21:31) Troponin I (10/16/16 21:31) Urinalysis - C+S If Indicated (10/16/16 21:31) Blood Culture (10/16/16 21:31) Chest, Single Ap (10/16/16 21:31) Blood Glucose (10/16/16 21:31) Ecg Monitoring (10/16/16 21:31) Iv Access Insert/Monitor (10/16/16 21:31) Oximetry (10/16/16 21:31) Oxygen Administration (10/16/16 21:31) Acetaminophen (Tylenol) (10/16/16 21:45) Cath For Specimen (10/16/16 21:31) Sodium Chlor 0.9% 1000 Ml Inj (Ns 1000 M (10/16/16 21:45) Ct Brain W/O Iv Contrast(Rout) (10/16/16 ) Vancomycin Inj (Vancomycin Inj) (10/16/16 22:30) Piperacil-Tazo 4.5 Gm Premix (Zosyn 4.5 (10/16/16 22:30) Urine Culture (10/16/16 21:40) Admit Order (Ed Use Only) (10/16/16 23:44) Labs Laboratory Tests Test 10/16/16 10/16/16 10/16/16 21:30 21:40 22:10 Prothrombin Time 12.3 SEC Prothromb Time International 1.1 RATIO Ratio Activated Partial 30.9 SEC Thromboplast Time Sodium Level 130 MEQ/L Potassium Level 3.4 MEQ/L Chloride Level 96 MEQ/L Carbon Dioxide Level 27.4 MEQ/L Anion Gap 7 MEQ/L Blood Urea Nitrogen 18 MG/DL Creatinine 1.64 MG/DL Estimat Glomerular Filtration 40 ML/MIN Rate Random Glucose 217 MG/DL Calcium Level 7.8 MG/DL Magnesium Level 1.8 MG/DL Total Bilirubin 0.4 MG/DL Aspartate Amino Transf 19 U/L (AST/SGOT) Alanine Aminotransferase 14 U/L (ALT/SGPT) Alkaline Phosphatase 79 U/L Total Creatine Kinase 61 U/L Troponin I 0.02 NG/ML Total Protein 6.5 GM/DL Albumin 2.9 GM/DL White Blood Count 15.8 TH/MM3 Red Blood Count 3.80 MIL/MM3 Hemoglobin 11.3 GM/DL Hematocrit 34.3 % Mean Corpuscular Volume 90.4 FL Mean Corpuscular Hemoglobin 29.7 PG Mean Corpuscular Hemoglobin 32.8 % Concent Red Cell Distribution Width 14.6 % Platelet Count 245 TH/MM3 Mean Platelet Volume 6.8 FL Neutrophils (%) (Auto) 87.6 % Lymphocytes (%) (Auto) 5.8 % Monocytes (%) (Auto) 6.1 % Eosinophils (%) (Auto) 0.2 % Basophils (%) (Auto) 0.3 % Neutrophils # (Auto) 13.9 TH/MM3 Lymphocytes # (Auto) 0.9 TH/MM3 Monocytes # (Auto) 1.0 TH/MM3 Eosinophils # (Auto) 0.0 TH/MM3 Basophils # (Auto) 0.0 TH/MM3 CBC Comment DIFF FINAL Differential Comment Urine Color YELLOW Urine Turbidity HAZY Urine pH 6.0 Urine Specific [place] 1.007 Urine Protein TRACE mg/dL Urine Glucose (UA) 300 mg/dL Urine Ketones NEG mg/dL Urine Occult Blood MOD Urine Nitrite NEG Urine Bilirubin NEG Urine Urobilinogen LESS THAN 2.0 MG/DL Urine Leukocyte Esterase LARGE Urine RBC 10 /hpf Urine WBC /hpf Urine WBC Clumps RARE Urine Amorphous Sediment RARE Urine Bacteria MANY /hpf Microscopic Urinalysis Comment CATH-CULTURE IND Lactic Acid Level 1.7 mmol/L [facility] Medical Record Reviewed: Yes Supervised Visit with JOÃO: No Diagnosis Primary Impression: AMS DUE TO INFECTION Additional Impressions: BILATERAL PNEUMONIA UTI Rigo Aguilar MD Oct 16, 2016 23:06
[2016-10-17] VITALS (8 sets, daily range): BP systolic 109–121; BP diastolic 64–73; PULSE 70–75; RESP 18–20; TEMP 98.4–100; O2SAT 96–99
[2016-10-17] MEDS ORDERED: oxyCODONE/ACETAMINOPHEN 10 MG/325 MG TAB PO PRN
--- NOTE | 2016-10-17 00:12 | HHI.HP ---
HPI Service [facility] Hospitalists Primary Care Physician Flavia Preston MD Admission Diagnosis AMS DUE TO PNA/UTI Chief Complaint: change in mental status generalized weakness Travel History International Travel<30 Days: No Contact w/Intl Traveler <30 Da: No Traveled to Known Affected Are: No History of Present Illness 86-year-old male presents to the emergency department via EMS for evaluation of altered mental status, fever. Patient was discharge October 11, from [facility] after undergoing L4 to L5 transforaminal interbody fusion, redo decompression laminectomy, pedicle screw fixation on September 21, [address] Joshua. Apparently, he was his usual state of health until approximately 2 days ago became increasingly confused. Patient is a poor historian. He denies any complaints to me. No headache. No chest pain shortness breath. No abdominal pain. No nausea, vomiting, diarrhea. Incision site to the back is without erythema or drainage. Patient is a past medical history of diabetes, Parkinson's disease, RSAHMI, hypertension, CAD status post CABG 3 and AVR. Family states earlier in day did not recognize them this evening patient was oriented but was weak. Patient work up in er showed UTI and bilateral pneumonia ,as was in rehab center will place on zosyn and vancomycin . Review of Systems ROS Limitations: Altered Mental Status Other weakness frequent urination Past Family Social History Past Medical History dm,parkinson,hypertension,hypotension ,cad,gerd djd hyperlipidemia Past Surgical History bovine valve surgery,cabg times 3,tonsil Reported Medications Oxycodone-Acetaminophen 10-325 mg Tab 1-2 Tab PO Q6HR PRN Flexeril (Cyclobenzaprine HCl) 10 Mg Tab 10 Mg PO Q8H PRN Senna Plus 8.6-50 mg (Sennosides-Docusate Sodium) 1 Tab Tab 1 Tab PO BID Metoprolol Tartrate 25 Mg Tab 12.5 Mg PO BID Zantac (Ranitidine HCl) 150 Mg Tab 150 Mg PO DAILY Midodrine 5 Mg Tab 5 Mg PO BID Gabapentin 300 Mg Cap 300 Mg PO TID Os-[place] Angel Extra D3 (Calcium Carbonate-Cholecalciferol) 500-600 Mg-Unit Tab 1 Tab PO BID Ocuvite (Multiple Vitamins W/ Minerals) 1 Tab 1 Tab PO DAILY Crestor (Rosuvastatin Calcium) 20 Mg Tab 20 Mg PO HS Aspirin 325 Mg Tab 325 Mg PO HS Effexor (Venlafaxine HCl) 37.5 Mg Tab 37.5 Mg PO Q12H Plavix (Clopidogrel Bisulfate) 75 Mg Tab 75 Mg PO DAILY Glipizide 10 Mg Tab 10 Mg PO BIDAC Take 30 minutes before a meal Reported Entacapone 200 Mg Tab 200 Mg PO TID administered concomitantly with each levodopa/carbidopa dose Sinemet (Carbidopa-Levodopa) 25-100 Mg Tab 2.5 Tab PO Q8HR Tradjenta (Linagliptin) 5 Mg Tab 5 Mg PO DAILY Fenofibrate 145 Mg Tab 145 Mg PO HS Allergies: Coded Allergies: No Known Allergies (Unverified , 10/16/16) Social History current NS,ND Physical Exam Vital Signs Vital Signs Date Time Temp Pulse Resp B/P Pulse Ox O2 Delivery O2 Flow Rate FiO2 10/16/16 22:05 99.5 82 18 124/71 97 Physical Exam GENERAL: This is a well-nourished, well-developed patient, in no apparent distress. SKIN: No rashes, ecchymoses or lesions. Cool and dry. HEAD: Atraumatic. Normocephalic. No temporal or scalp tenderness. EYES: Pupils equal round and reactive. Extraocular motions intact. No scleral icterus. No injection or drainage. ENT: Nose without bleeding, purulent drainage or septal hematoma. Throat without erythema, tonsillar hypertrophy or exudate. Uvula midline. Airway patent. NECK: Trachea midline. No JVD or lymphadenopathy. Supple, nontender, no meningeal signs. CARDIOVASCULAR: Regular rate and rhythm without murmurs, gallops, or rubs. RESPIRATORY: Bilateral decrease breath sounds rhonchi bases GASTROINTESTINAL: Abdomen soft, non-tender, nondistended. No hepato-splenomegaly , or palpable masses. No guarding. MUSCULOSKELETAL: Extremities without clubbing, cyanosis, or edema. No joint tenderness, effusion, or edema noted. No calf tenderness. Negative Homans sign bilaterally. NEUROLOGICAL: Awake and alert. Cranial nerves II through XII intact. sensory grossly within normal limits. 3 out of 5 muscle strength in all muscle groups. Normal speech. some motor weakness lower extremities Laboratory Laboratory Tests Test 10/16/16 10/16/16 10/16/16 21:30 21:40 22:10 White Blood Count 15.8 Red Blood Count 3.80 Hemoglobin 11.3 Hematocrit 34.3 Mean Corpuscular Volume 90.4 Mean Corpuscular Hemoglobin 29.7 Mean Corpuscular Hemoglobin 32.8 Concent Red Cell Distribution Width 14.6 Platelet Count 245 Mean Platelet Volume 6.8 Neutrophils (%) (Auto) 87.6 Lymphocytes (%) (Auto) 5.8 Monocytes (%) (Auto) 6.1 Eosinophils (%) (Auto) 0.2 Basophils (%) (Auto) 0.3 Neutrophils # (Auto) 13.9 Lymphocytes # (Auto) 0.9 Monocytes # (Auto) 1.0 Eosinophils # (Auto) 0.0 Basophils # (Auto) 0.0 CBC Comment DIFF FINAL Differential Comment Prothrombin Time 12.3 Prothromb Time International 1.1 Ratio Activated Partial 30.9 Thromboplast Time Sodium Level 130 Potassium Level 3.4 Chloride Level 96 Carbon Dioxide Level 27.4 Anion Gap 7 Blood Urea Nitrogen 18 Creatinine 1.64 Estimat Glomerular Filtration 40 Rate Random Glucose 217 Calcium Level 7.8 Magnesium Level 1.8 Total Bilirubin 0.4 Aspartate Amino Transf 19 (AST/SGOT) Alanine Aminotransferase 14 (ALT/SGPT) Alkaline Phosphatase 79 Total Creatine Kinase 61 Troponin I 0.02 Total Protein 6.5 Albumin 2.9 Urine Color YELLOW Urine Turbidity HAZY Urine pH 6.0 Urine Specific [place] 1.007 Urine Protein TRACE Urine Glucose (UA) 300 Urine Ketones NEG Urine Occult Blood MOD Urine Nitrite NEG Urine Bilirubin NEG Urine Urobilinogen LESS THAN 2.0 Urine Leukocyte Esterase LARGE Urine RBC 10 Urine WBC Urine WBC Clumps RARE Urine Amorphous Sediment RARE Urine Bacteria MANY Microscopic Urinalysis Comment CATH-CULTURE IND Lactic Acid Level 1.7 Date/Time Procedure Status Source Growth 10/16/16 22:10 Aerobic Blood Culture Received Blood Peripheral Pending 10/16/16 22:10 Anaerobic Blood Culture Received Blood Peripheral Pending 10/16/16 21:40 Urine Culture Received Urine Catheterized Urine Pending Result Diagram: 10/16/16212910/16/162129 Imaging Last 24 hours Impressions Chest X-Ray 10/16/162130 Signed Impressions: Service Date/Time: Sunday, October 16, 2016 21:52 - CONCLUSION: Bibasilar infiltrates and small pleural effusions. Nacho Pettit MD Course in er started on IV antibiotics Assessment and Plan Problem List: (1) Pneumonia Status: Acute Plan: start vancomycin and zosyn and follow up labs (2) UTI (urinary tract infection) Status: Acute Plan: continue antibiotics as above follow up u/c/s (3) Mental status change Status: Acute Plan: related to pneumonia and uti will get ct brain as well (4) Diabetes Status: Chronic Plan: patient for now will continue current meds with accuchecks Assessment and Plan further plan as case progresses Code Status full Discussed Condition With patient and family Physician Certification 2 Midnight Certification Type: Admission for Inpatient Services Order for Inpatient Services The services are ordered in accordance with Medicare regulations or non- Medicare payer requirements, as applicable. In the case of services not specified as inpatient-only, they are appropriately provided as inpatient services in accordance with the 2-midnight benchmark. Estimated LOS (days): 3 3 days is the estimated time the patient will need to remain in the hospital, assuming treatment plan goals are met and no additional complications. Post-Hospital Plan: [facility] Niles Guallpa MD Oct 17, 2016 00:12
[2016-10-17] MEDS ORDERED: SODIUM CHLORIDE 0.9% FLUSH 10 ML FLUSH IV FLUSH PRN (00:15)
[2016-10-17] MEDS ORDERED: BISACODYL 10 MG SUPP RECTAL PRN (00:15)
[2016-10-17] MEDS ORDERED: LACTULOSE SYRUP 20 GM/30 ML CUP PO PRN (00:15)
[2016-10-17] MEDS ORDERED: SENNOSIDES 8.6 MG TAB PO PRN (00:15)
[2016-10-17] MEDS ORDERED: NALOXONE HCL 0.4 MG/ML AMP IV PRN (00:15)
[2016-10-17] MEDS ORDERED: Vancomycin Consult Pharmacy 1 EA OTHER SCH (00:15)
[2016-10-17] MEDS ORDERED: MAGNESIUM HYDROXIDE SUSP 30 ML CUP PO PRN (00:15)
--- NOTE | 2016-10-17 00:39 | RADRPT ---
EXAM DATE/TIME: 10/16/2016 22:33 [facility] COMPARISON: No previous studies available for comparison. INDICATIONS : Altered mental status. RADIATION DOSE: 31.95 CTDIvol (mGy) MEDICAL HISTORY : Cardiovascular disease. Hypertension. Chronic obstructive pulmonary disease.Diabetes. SURGICAL HISTORY : CABG ENCOUNTER: Initial ACUITY: 1 day PAIN SCALE: 0/10 LOCATION: cranial TECHNIQUE: Multiple contiguous axial images were obtained of the head. Using automated exposure control and adj ustment of the mA and/or kV according to patient size, radiation dose was kept as low as reasonably a chievable to obtain optimal diagnostic quality images. DICOM format image data is available electro nically for review and comparison. FINDINGS: CEREBRUM: The ventricles, sulci, and basal cisterns are prominent accurate moderate central and cortical atroph y. Physiologic calcification in the basal ganglia.. No evidence of midline shift, mass lesion, hemo rrhage or acute infarction. No extra-axial fluid collections are seen. POSTERIOR FOSSA: The cerebellum and brainstem are intact. The 4th ventricle is midline. The cerebellopontine angle i s unremarkable. EXTRACRANIAL: The visualized portion of the orbits is intact. SKULL: The calvaria is intact. No evidence of skull fracture. CONCLUSION: 1. No acute findings in the brain. 2. Moderate severity central cortical atrophy. Dakota Medel MD on October 17, 2016 at 0:36 Board Certified Radiologist. This report was verified electronically.
[2016-10-17] MEDS: SODIUM CHLOR 0.9% 1000 ML INJ 1,000 ML IV SCH ×2 (00:50→14:19)
[2016-10-17] MEDS ORDERED: VANCOMYCIN 1,000 MG/NS 250 ML IV ONE ×2 (01:00)
[2016-10-17] MEDS ORDERED: ACETAMINOPHEN 325 MG TAB PO ONE (01:45)
[2016-10-17] MEDS: CARBIDOPA/LEVODOPA 25 MG/100 MG TAB PO SCH ×3 (07:16→22:13)
[2016-10-17] MEDS: glipiZIDE 10 MG TAB PO SCH ×2 (07:16→16:14)
[2016-10-17 08:18] LABS: AUTOMATED NEUTROPHIL # 13.8 TH/MM3 (1.8-7.7); BASOPHIL % 0.3 % (0.0-2.0); EOSINOPHIL # 0.1 TH/MM3 (0-0.4); EOSINOPHIL % 0.4 % (0.0-4.0); HEMO FLAGS DIFF FINAL; LYMPHOCYTE # 0.6 TH/MM3 (1.0-4.8); MEAN CELL VOLUME 88.7 FL (80.0-100.0); MEAN CORPUSCULAR HEMOGLOBIN 29.6 PG (27.0-34.0); MEAN CORPUSCULAR HGB CONC 33.4 % (32.0-36.0); MONO % 6.6 % (0.0-8.0); NEUT % 88.7 % (16.0-70.0); PLATELET COUNT 210 TH/MM3 (150-450); RED BLOOD COUNT 3.84 MIL/MM3 (4.50-5.90); RED CELL DISTRIBUTION WIDTH 14.2 % (11.6-17.2); WHITE BLOOD COUNT 15.5 TH/MM3 (4.0-11.0)
[2016-10-17 08:33] LABS: ANION GAP 6 MEQ/L (5-15); AST (GOT) 20 U/L (15-37); BICARBONATE 26.9 MEQ/L (21.0-32.0); BLOOD UREA NITROGEN 14 MG/DL (7-18); CHLORIDE 103 MEQ/L (98-107); GLOMERULAR FILTRATION RATE 50 ML/MIN (>89); POTASSIUM 3.3 MEQ/L (3.5-5.1); SODIUM (NA) 136 MEQ/L (136-145)
[2016-10-17] MEDS: GABAPENTIN 300 MG CAP PO SCH ×3 (08:34→18:24)
[2016-10-17] MEDS: FAMOTIDINE 20 MG TAB PO SCH (08:34)
[2016-10-17 08:35] LABS: ALT (GPT) 15 U/L (12-78)
[2016-10-17] MEDS: MULTIVITAMIN-OPHTHALMIC 1 TAB PO SCH (08:35)
[2016-10-17] MEDS: DOCUSATE SODIUM 50 MG/SENNA 8.6 MG TAB PO SCH ×2 (08:35→22:12)
[2016-10-17] MEDS: CALCIUM/VITAMIN D 250 MG/125 U TAB PO SCH ×2 (08:35→22:13)
[2016-10-17] MEDS: CLOPIDOGREL 75 MG TAB PO SCH (08:35)
[2016-10-17] MEDS: VENLAFAXINE HCL XR 75 MG CAP PO SCH (08:35)
[2016-10-17 08:36] LABS: ALKALINE PHOSPHATASE 79 U/L (45-117); TOTAL BILIRUBIN ADULT 0.7 MG/DL (0.2-1.0)
[2016-10-17] MEDS: PIPERACIL-TAZO 3.375 GM PREMIX 50 ML IV SCH ×3 (08:36→22:21)
[2016-10-17] MEDS: SODIUM CHLORIDE 0.9% FLUSH 10 ML FLUSH IV FLUSH SCH ×2 (08:36→21:00)
[2016-10-17] MEDS: MIDODRINE 5 MG TAB PO SCH ×2 (08:37→18:24)
[2016-10-17] MEDS ORDERED: ENTACAPONE 200 MG PO SCH (09:00)
[2016-10-17] MEDS ORDERED: DOCUSATE SODIUM 50 MG/SENNA 8.6 MG TAB PO SCH (09:00)
[2016-10-17] MEDS ORDERED: LINAGLIPTIN 5 MG PO SCH (09:00)
[2016-10-17] MEDS: METOPROLOL TARTRATE 25 MG TAB PO SCH ×2 (11:55→22:14)
[2016-10-17] MEDS ORDERED: RESP: ALBUTEROL 2.5 MG/IPRATROPIUM 0.5 MG NEB (PRN) NEB (12:00)
--- NOTE | 2016-10-17 12:01 | HHI.PR ---
Subjective Remarks Pt with fever this afternoon. Decreased cough from admission. Objective Vitals Vital Signs Date Time Temp Pulse Resp B/P Pulse Ox O2 Delivery O2 Flow Rate FiO2 10/17/16 10:15 100.0 73 18 121/64 96 10/17/16 06:58 73 10/17/16 04:25 75 10/17/16 03:11 98.5 73 18 109/65 99 10/16/16 22:05 99.5 82 18 124/71 97 10/16/16 21:35 98 Nasal Cannula 2 10/16/16 10/16/16 10/17/16 15:00 23:00 07:00 Intake Total 1691 ml Output Total 600 ml Balance 1091 ml Intake IV Total 1691 ml Output Urine Total 600 ml Result Diagram: 10/17/1671910/17/[id number] Imaging Last Impressions Chest X-Ray 10/16/161 Signed Impressions: Service Date/Time: Sunday, October 16, 2016 21:52 - CONCLUSION: Bibasilar infiltrates and small pleural effusions. Nacho Pettit MD Head CT 10/16/16 0000 Signed Impressions: Service Date/Time: Sunday, October 16, 2016 22:33 - CONCLUSION: 1. No acute findings in the brain. 2. Moderate severity central cortical atrophy. Dakota Medel MD Objective Remarks GENERAL: This is a well-nourished, well-developed patient, in no apparent distress. CARDIOVASCULAR: Regular rate and rhythm without murmurs, gallops, or rubs. RESPIRATORY: Decreased air movement in lung bases GASTROINTESTINAL: Abdomen soft, non-tender, nondistended. Normal active bowel sounds MUSCULOSKELETAL: Extremities without clubbing, cyanosis, or edema. NEURO: Alert & Oriented x4 to person, place, time, situation. Moves all ext x4 A/P Problem List: (1) Pneumonia Status: Acute Plan: - CXR (10/16/16) --> bibasilar infiltrates - Tmax = 100F at 10AM 10/17 - Vancomycin/Zosyn (10/16 - present) - duonebs scheduled and prn - IS - obtain urine legionella antigen - obtain urine pneumococcal antigen - obtain sputum culture and sensitivity (2) UTI (urinary tract infection) Status: Acute Plan: - continue antibiotics as above - follow culture results - urine Cx --> pending - blood Cx --> pending (3) Mental status change Status: Acute Plan: - likely d/t pneumonia/UTI - CT brain (10/16/16) --> atrophy, NO acute changes - supportive care (4) Diabetes Status: Chronic Plan: - SSI - glucotrol (5) 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 He had a large L4-L5 disk herniation with severe spinal stenosis and chronic L1/2 disc degeneration protrusion of the left side. - Pt underwent redo L4/L5 hemilaminotomy with microdiscectomy on 07/18/[address] Joshua. 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 - Pt takes miodrine (7) Parkinson disease Status: Chronic Plan: - continue Sinemet (8) H/O aortic valve replacement with tissue graft Status: Chronic (9) S/P CABG (coronary artery bypass graft) Status: Chronic (10) PVD (peripheral vascular disease) Status: Acute Plan: - h/o LE revascularization procedures Problem Qualifiers (1) Diabetes: Qualified Code: E11.8 - Type 2 diabetes mellitus with complication, without long-term current use of insulin (2) Hypotension: Qualified Code: I95.9 - Hypotension, unspecified hypotension type Deshawn Parikh DO Oct 17, 2016 12:01
[2016-10-17] MEDS: RESP: ALBUTEROL 2.5 MG/IPRATROPIUM 0.5 MG NEB (SCH) NEB ×2 (13:45→20:02)
[2016-10-17] MEDS ORDERED: GLUCAGON 1 MG/ML VIAL OTHER PRN (14:00)
[2016-10-17] MEDS ORDERED: DEXTROSE 50% IN WATER 50 ML VIAL(D50) IV PRN (14:00)
[2016-10-17] MEDS: INSULIN ASPART SUPPLEMENTAL SCALE SQ SCH ×2 (18:25→21:00)
[2016-10-17] MEDS: FENOFIBRATE 145 MG TAB PO SCH (22:12)
[2016-10-17] MEDS: ATORVASTATIN 40 MG TAB PO SCH (22:12)
[2016-10-17] MEDS: ASPIRIN 325 MG TAB PO SCH (22:14)
[2016-10-18] VITALS (7 sets, daily range): BP systolic 106–137; BP diastolic 63–78; PULSE 59–75; RESP 18–20; TEMP 97.5–99.9; O2SAT 96–99
[2016-10-18] MEDS: SODIUM CHLOR 0.9% 1000 ML INJ 1,000 ML IV SCH ×2 (00:20→17:33)
[2016-10-18] MEDS: INSULIN ASPART SUPPLEMENTAL SCALE SQ SCH ×4 (06:07→21:00)
[2016-10-18] MEDS: VANCOMYCIN INJ 1,500 MG in SODIUM CHLORID 0.9% 500 ML INJ 500 ML IV SCH (06:07)
[2016-10-18] MEDS: glipiZIDE 10 MG TAB PO SCH ×2 (06:07→17:32)
[2016-10-18] MEDS: CARBIDOPA/LEVODOPA 25 MG/100 MG TAB PO SCH ×3 (06:09→21:27)
[2016-10-18] MEDS: RESP: ALBUTEROL 2.5 MG/IPRATROPIUM 0.5 MG NEB (SCH) NEB ×3 (07:37→20:00)
--- NOTE | 2016-10-18 08:45 | EKG ---
Date Performed: 10/16/2016 Time Performed: 21:17:50 PTAGE: 86 years EKG: Sinus rhythm WITH FIRST DEGREE AV BLOCK POSSIBLE ANTERIOR MYOCARDIAL INFARCTION INFERIOR MYOCARDIAL INFARCTION AB NORMAL ECG Compared to the PREVIOUS TRACING from 07/16/16, no significant change DOCTOR: Clifford Mooney Interpretating Date/Time 10/18/2016 08:44:35
[2016-10-18] MEDS: GABAPENTIN 300 MG CAP PO SCH ×3 (09:00→17:32)
[2016-10-18] MEDS: MULTIVITAMIN-OPHTHALMIC 1 TAB PO SCH (09:00)
--- NOTE | 2016-10-18 09:37 | RADRPT ---
EXAM DATE/TIME: 10/18/2016 08:57 [facility] COMPARISON: CT BRAIN W/O CONTRAST, October 16, 2016, 22:33. INDICATIONS : Altered mental status. RADIATION DOSE: 36.53 CTDIvol (mGy) MEDICAL HISTORY : Cardiovascular disease. Hypertension. Diabetes mellitus type 2. SURGICAL HISTORY : CABG ENCOUNTER: Initial ACUITY: 1 day PAIN SCALE: 0/10 LOCATION: cranial TECHNIQUE: Multiple contiguous axial images were obtained of the head. Using automated exposure control and adj ustment of the mA and/or kV according to patient size, radiation dose was kept as low as reasonably a chievable to obtain optimal diagnostic quality images. DICOM format image data is available electro nically for review and comparison. FINDINGS: CEREBRUM: Cerebral atrophy is again noted. is again noted. No evidence of midline shift, mass lesion, hemorrhag e or acute infarction. No extra-axial fluid collections are seen. POSTERIOR FOSSA: The cerebellum and brainstem are intact. The 4th ventricle is midline. The cerebellopontine angle i s unremarkable. EXTRACRANIAL: The visualized portion of the orbits is intact. SKULL: The calvaria is intact. No evidence of skull fracture. CONCLUSION: 1. Stable cerebral atrophy. 2. No acute infarct, acute hemorrhage, mass effect or extra-axial fluid collections. Bert Whittaker MD on October 18, 2016 at 9:34 Board Certified Radiologist. This report was verified electronically.
--- NOTE | 2016-10-18 09:58 | RADRPT ---
EXAM DATE/TIME: 10/18/2016 08:48 [facility] COMPARISON: CHEST SINGLE AP, October 16, 2016, 21:52. INDICATIONS : Short of breath. MEDICAL HISTORY : Hypertension. Diabetes mellitus type II. Cardiovascular disease SURGICAL HISTORY : CABG. ENCOUNTER: Subsequent ACUITY: 2 days PAIN SCORE: 0/10 LOCATION: Bilateral chest FINDINGS: Median sternotomy wires are noted status-post cardiac surgery. The heart is stable in appearance com pared to the previous examination. Small bilateral pleural effusions are noted. Bibasilar streakine ss is again noted. CONCLUSION: 1. Stable bibasilar streakiness. 2. Small bilateral pleural effusions. 3. Stable cardiomegaly. Bert Whittaker MD on October 18, 2016 at 9:45 Board Certified Radiologist. This report was verified electronically.
[2016-10-18] MEDS: PIPERACIL-TAZO 3.375 GM PREMIX 50 ML IV SCH ×2 (10:00→17:31)
--- NOTE | 2016-10-18 11:03 | HHI.PR ---
Subjective Remarks Pt alert but confused. He is without any specific complaints. He thought he couldn't move his left leg but was able to actively flex his knee up without any difficulty Objective Vitals Vital Signs Date Time Temp Pulse Resp B/P Pulse Ox O2 Delivery O2 Flow Rate FiO2 10/18/16 08:00 99.2 71 20 117/69 97 10/18/16 04:54 98.0 75 18 131/64 10/17/16 20:02 98 Nasal Cannula 2.00 10/17/16 17:55 99.0 74 18 120/64 98 10/17/16 13:46 99 Nasal Cannula 2.00 10/17/16 13:23 98.4 70 20 121/73 99 10/17/16 10/17/16 10/18/16 15:00 23:00 07:00 Intake Total 200 ml Output Total 2150 ml 675 ml Balance -2150 ml -675 ml 200 ml Intake Oral 200 ml Output Urine Total 2150 ml 675 ml Result Diagram: 10/17/16 0720 10/18/16 0617 Other Results Laboratory Tests Test 10/16/16 10/16/16 10/16/16 10/17/16 21:30 21:40 22:10 07:20 Prothrombin Time 12.3 SEC Prothromb Time International 1.1 RATIO Ratio Activated Partial 30.9 SEC Thromboplast Time Sodium Level 130 MEQ/L 136 MEQ/L Potassium Level 3.4 MEQ/L 3.3 MEQ/L Chloride Level 96 MEQ/L 103 MEQ/L Carbon Dioxide Level 27.4 MEQ/L 26.9 MEQ/L Anion Gap 7 MEQ/L 6 MEQ/L Blood Urea Nitrogen 18 MG/DL 14 MG/DL Creatinine 1.64 MG/DL 1.35 MG/DL Estimat Glomerular Filtration 40 ML/MIN 50 ML/MIN Rate Random Glucose 217 MG/DL 106 MG/DL Calcium Level 7.8 MG/DL 8.1 MG/DL Magnesium Level 1.8 MG/DL Total Bilirubin 0.4 MG/DL 0.7 MG/DL Aspartate Amino Transf 19 U/L 20 U/L (AST/SGOT) Alanine Aminotransferase 14 U/L 15 U/L (ALT/SGPT) Alkaline Phosphatase 79 U/L 79 U/L Total Creatine Kinase 61 U/L Troponin I 0.02 NG/ML Total Protein 6.5 GM/DL 6.7 GM/DL Albumin 2.9 GM/DL 2.8 GM/DL White Blood Count 15.8 TH/MM3 15.5 TH/MM3 Red Blood Count 3.80 MIL/MM3 3.84 MIL/MM3 Hemoglobin 11.3 GM/DL 11.4 GM/DL Hematocrit 34.3 % 34.0 % Mean Corpuscular Volume 90.4 FL 88.7 FL Mean Corpuscular Hemoglobin 29.7 PG 29.6 PG Mean Corpuscular Hemoglobin 32.8 % 33.4 % Concent Red Cell Distribution Width 14.6 % 14.2 % Platelet Count 245 TH/MM3 210 TH/MM3 Mean Platelet Volume 6.8 FL 7.1 FL Neutrophils (%) (Auto) 87.6 % 88.7 % Lymphocytes (%) (Auto) 5.8 % 4.0 % Monocytes (%) (Auto) 6.1 % 6.6 % Eosinophils (%) (Auto) 0.2 % 0.4 % Basophils (%) (Auto) 0.3 % 0.3 % Neutrophils # (Auto) 13.9 TH/MM3 13.8 TH/MM3 Lymphocytes # (Auto) 0.9 TH/MM3 0.6 TH/MM3 Monocytes # (Auto) 1.0 TH/MM3 1.0 TH/MM3 Eosinophils # (Auto) 0.0 TH/MM3 0.1 TH/MM3 Basophils # (Auto) 0.0 TH/MM3 0.0 TH/MM3 CBC Comment DIFF FINAL DIFF FINAL Differential Comment Urine Color YELLOW Urine Turbidity HAZY Urine pH 6.0 Urine Specific [place] 1.007 Urine Protein TRACE mg/dL Urine Glucose (UA) 300 mg/dL Urine Ketones NEG mg/dL Urine Occult Blood MOD Urine Nitrite NEG Urine Bilirubin NEG Urine Urobilinogen LESS THAN 2.0 MG/DL Urine Leukocyte Esterase LARGE Urine RBC 10 /hpf Urine WBC /hpf Urine WBC Clumps RARE Urine Amorphous Sediment RARE Urine Bacteria MANY /hpf Microscopic Urinalysis Comment CATH-CULTURE IND Lactic Acid Level 1.7 mmol/L Test 10/18/16 06:17 Creatinine 1.32 MG/DL Estimat Glomerular Filtration 52 ML/MIN Rate Imaging Last Impressions Chest X-Ray 10/16/161 Signed Impressions: Service Date/Time: Sunday, October 16, 2016 21:52 - CONCLUSION: Bibasilar infiltrates and small pleural effusions. Nacho Pettit MD Head CT 10/16/16 0000 Signed Impressions: Service Date/Time: Sunday, October 16, 2016 22:33 - CONCLUSION: 1. No acute findings in the brain. 2. Moderate severity central cortical atrophy. Dakota Medel MD Objective Remarks General: NAD, Alert but confused Chest: Decreased breath sounds at the cases Cardiac: Regular Abd: +BS, soft ND/NT Ext: RLE slight edema, good pulses. Moves all extremities without difficulty A/P Problem List: (1) Pneumonia Status: Acute Plan: - Pt is an 86 y/o male who presented to the ED via EMS for evaluation of altered mental status, fever. - CXR (10/16/16) --> bibasilar infiltrates - Afebrile overnight. Tmax = 100F at 10AM 10/17 - Vancomycin/Zosyn (10/16 - present) - Duonebs scheduled and prn - IS - Urine for legionella antigen and pneumococcal antigen are pending - Sputum culture and sensitivity is pending. (2) UTI (urinary tract infection) Status: Acute Plan: - continue antibiotics as above - Urine Cx --> E. 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 - He had a large L4-L5 disk herniation with severe spinal stenosis and chronic L1/2 disc degeneration protrusion of the left side. - Pt underwent redo L4/L5 hemilaminotomy with microdiscectomy on 07/18/[address] Joshua. 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 - Pt takes midodrine (7) Parkinson disease Status: Chronic Plan: - continue Sinemet (8) H/O aortic valve replacement with tissue graft Status: Chronic (9) S/P CABG (coronary artery bypass graft) Status: Chronic (10) PVD (peripheral vascular disease) Status: Acute Plan: - h/o LE revascularization procedures Assessment and Plan Patient examined. Assessment and plan formulated with Regina Viramontes PA-C. I agree with the above. Problem Qualifiers (1) Diabetes: Qualified Code: E11.8 - Type 2 diabetes mellitus with complication, without long-term current use of insulin (2) Hypotension: Qualified Code: I95.9 - Hypotension, unspecified hypotension type Regina Viramontes Oct 18, 2016 11:03 Deshawn Parikh DO Oct 19, 2016 14:43
[2016-10-18] MEDS: CLOPIDOGREL 75 MG TAB PO SCH (11:34)
[2016-10-18] MEDS: VENLAFAXINE HCL XR 75 MG CAP PO SCH (11:34)
[2016-10-18] MEDS: METOPROLOL TARTRATE 25 MG TAB PO SCH ×2 (11:34→21:27)
[2016-10-18] MEDS: FAMOTIDINE 20 MG TAB PO SCH (11:35)
[2016-10-18] MEDS: DOCUSATE SODIUM 50 MG/SENNA 8.6 MG TAB PO SCH ×2 (11:35→21:00)
[2016-10-18] MEDS: MIDODRINE 5 MG TAB PO SCH ×2 (11:35→17:32)
[2016-10-18] MEDS: CALCIUM/VITAMIN D 250 MG/125 U TAB PO SCH ×2 (11:35→21:28)
[2016-10-18] MEDS: SODIUM CHLORIDE 0.9% FLUSH 10 ML FLUSH IV FLUSH SCH ×2 (11:36→21:00)
[2016-10-18] MEDS: ATORVASTATIN 40 MG TAB PO SCH (21:27)
[2016-10-18] MEDS: ASPIRIN 325 MG TAB PO SCH (21:27)
[2016-10-18] MEDS: oxyCODONE/ACETAMINOPHEN 10 MG/325 MG TAB PO PRN (21:27)
[2016-10-18] MEDS: FENOFIBRATE 145 MG TAB PO SCH (21:28)
[2016-10-19] VITALS (9 sets, daily range): BP systolic 101–154; BP diastolic 60–70; PULSE 54–73; RESP 18–20; TEMP 97.3–99.7; O2SAT 96–100
[2016-10-19] MEDS: SODIUM CHLOR 0.9% 1000 ML INJ 1,000 ML IV SCH (00:11)
[2016-10-19] MEDS: PIPERACIL-TAZO 3.375 GM PREMIX 50 ML IV SCH ×4 (00:11→23:08)
[2016-10-19] MEDS: VANCOMYCIN INJ 1,500 MG in SODIUM CHLORID 0.9% 500 ML INJ 500 ML IV SCH (05:13)
[2016-10-19] MEDS: CARBIDOPA/LEVODOPA 25 MG/100 MG TAB PO SCH ×3 (05:24→20:45)
[2016-10-19] MEDS: INSULIN ASPART SUPPLEMENTAL SCALE SQ SCH ×4 (07:00→20:48)
[2016-10-19] MEDS: RESP: ALBUTEROL 2.5 MG/IPRATROPIUM 0.5 MG NEB (SCH) NEB ×3 (08:24→20:00)
[2016-10-19] MEDS: GABAPENTIN 300 MG CAP PO SCH ×3 (08:52→17:50)
[2016-10-19] MEDS: glipiZIDE 10 MG TAB PO SCH ×2 (08:52→16:11)
[2016-10-19] MEDS: FAMOTIDINE 20 MG TAB PO SCH (08:52)
[2016-10-19] MEDS: MIDODRINE 5 MG TAB PO SCH ×2 (08:52→16:11)
[2016-10-19] MEDS: DOCUSATE SODIUM 50 MG/SENNA 8.6 MG TAB PO SCH ×2 (08:52→20:46)
[2016-10-19] MEDS: METOPROLOL TARTRATE 25 MG TAB PO SCH ×2 (08:53→20:47)
[2016-10-19] MEDS: VENLAFAXINE HCL XR 75 MG CAP PO SCH (08:53)
[2016-10-19] MEDS: CALCIUM/VITAMIN D 250 MG/125 U TAB PO SCH ×2 (08:53→20:45)
[2016-10-19] MEDS: CLOPIDOGREL 75 MG TAB PO SCH (08:53)
[2016-10-19] MEDS: SODIUM CHLORIDE 0.9% FLUSH 10 ML FLUSH IV FLUSH SCH ×2 (08:59→20:46)
[2016-10-19 11:35] LABS: AUTOMATED NEUTROPHIL # 5.9 TH/MM3 (1.8-7.7); BASOPHIL % 0.6 % (0.0-2.0); EOSINOPHIL # 0.3 TH/MM3 (0-0.4); EOSINOPHIL % 3.8 % (0.0-4.0); HEMATOCRIT 33.2 % (39.0-51.0); HEMO FLAGS DIFF FINAL; LYMPH % 7.3 % (9.0-44.0); LYMPHOCYTE # 0.5 TH/MM3 (1.0-4.8); MEAN CELL VOLUME 89.7 FL (80.0-100.0); MEAN CORPUSCULAR HGB CONC 33.5 % (32.0-36.0); NEUT % 80.3 % (16.0-70.0); PLATELET COUNT 231 TH/MM3 (150-450); RED CELL DISTRIBUTION WIDTH 14.5 % (11.6-17.2); WHITE BLOOD COUNT 7.3 TH/MM3 (4.0-11.0)
[2016-10-19 12:00] LABS: BICARBONATE 30.1 MEQ/L (21.0-32.0); MAGNESIUM 1.9 MG/DL (1.5-2.5); POTASSIUM 3.2 MEQ/L (3.5-5.1)
[2016-10-19] MEDS: MULTIVITAMIN-OPHTHALMIC 1 TAB PO SCH (12:00)
[2016-10-19] MEDS ORDERED: POTASSIUM CHLORIDE 20 MEQ CONTROLLED RELEASE TAB PO ONE (14:45)
--- NOTE | 2016-10-19 14:55 | HHI.PR ---
Subjective Remarks No new complaints. SOB improved from admission. Objective Vitals Vital Signs Date Time Temp Pulse Resp B/P Pulse Ox O2 Delivery O2 Flow Rate FiO2 10/19/16 12:00 98.0 60 18 132/69 98 10/19/16 08:24 96 Nasal Cannula 2.00 10/19/16 08:00 97.3 54 18 128/65 100 10/19/16 06:48 57 10/19/16 05:11 98.0 55 18 101/60 10/19/16 00:00 98.9 67 18 108/66 99 10/18/16 20:27 98 Nasal Cannula 2.00 10/18/16 20:00 99.9 64 18 106/63 99 10/18/16 15:32 99.0 63 18 137/67 99 10/18/16 10/18/16 10/19/16 15:00 23:00 07:00 Intake Total 715 ml 1449 ml Output Total 1000 ml Balance 715 ml -1000 ml 1449 ml Intake Oral 200 ml IV Total 515 ml 1449 ml Output Urine Total 1000 ml Result Diagram: 10/19/16 1028 10/19/16 1028 Imaging Last Impressions Chest X-Ray 10/16/16 2131 Signed Impressions: Service Date/Time: Sunday, October 16, 2016 21:52 - CONCLUSION: Bibasilar infiltrates and small pleural effusions. Nacho Pettit MD Head CT 10/16/16 0000 Signed Impressions: Service Date/Time: Sunday, October 16, 2016 22:33 - CONCLUSION: 1. No acute findings in the brain. 2. Moderate severity central cortical atrophy. Dakota Medel MD Objective Remarks General: NAD, Alert but confused Chest: Decreased breath sounds at the cases Cardiac: Regular Abd: +BS, soft ND/NT Ext: RLE slight edema, good pulses. Moves all extremities without difficulty A/P Problem List: (1) Pneumonia Status: Acute Plan: - Pt is an 86 y/o male who presented to the ED via EMS for evaluation of altered mental status, fever. - CXR (10/16/16) --> bibasilar infiltrates - Afebrile overnight. Tmax = 100F at 10AM 10/17 - Vancomycin/Zosyn (10/16 - 10/19) - Zosyn (10/16 - 10/19) - start levaquin 10/20 - Duonebs scheduled and prn - IS - Urine for legionella antigen and pneumococcal antigen are pending - Sputum culture --> normal respiratory chad - PT - anticipate d/c to SNF 10/20 (2) UTI (urinary tract infection) Status: Acute Plan: - continue antibiotics as above - Urine Cx --> E. 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 - He had a large L4-L5 disk herniation with severe spinal stenosis and chronic L1/2 disc degeneration protrusion of the left side. - Pt underwent redo L4/L5 hemilaminotomy with microdiscectomy on 07/18/[address] Joshua. 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 - Pt takes midodrine (7) Parkinson disease Status: Chronic Plan: - continue Sinemet (8) H/O aortic valve replacement with tissue graft Status: Chronic (9) S/P CABG (coronary artery bypass graft) Status: Chronic (10) PVD (peripheral vascular disease) Status: Acute Plan: - h/o LE revascularization procedures Problem Qualifiers (1) Diabetes: Qualified Code: E11.8 - Type 2 diabetes mellitus with complication, without long-term current use of insulin (2) Hypotension: Qualified Code: I95.9 - Hypotension, unspecified hypotension type Deshawn Parikh DO Oct 19, 2016 14:55
[2016-10-19] MEDS: FENOFIBRATE 145 MG TAB PO SCH (20:45)
[2016-10-19] MEDS: ATORVASTATIN 40 MG TAB PO SCH (20:45)
[2016-10-19] MEDS: ASPIRIN 325 MG TAB PO SCH (20:46)
[2016-10-19] MEDS: oxyCODONE/ACETAMINOPHEN 10 MG/325 MG TAB PO PRN (20:51)
[2016-10-20] MEDS: SODIUM CHLOR 0.9% 1000 ML INJ 1,000 ML IV SCH (00:32)
[2016-10-20 01:31] VITALS: BP 94/55; PULSE 57; RESP 18; TEMP 98.4; O2SAT 100
[2016-10-20 04:50] VITALS: BP 110/57; PULSE 65; RESP 18; TEMP 98.6; O2SAT 100
[2016-10-20] MEDS: CARBIDOPA/LEVODOPA 25 MG/100 MG TAB PO SCH ×2 (05:33→14:39)
[2016-10-20] MEDS: INSULIN ASPART SUPPLEMENTAL SCALE SQ SCH ×3 (05:36→17:04)
[2016-10-20] MEDS ORDERED: PHARMACY ORDERED LAB ONE (05:45)
[2016-10-20] MEDS: glipiZIDE 10 MG TAB PO SCH ×2 (07:03→17:07)
[2016-10-20 08:00] VITALS: BP 128/63; PULSE 68; RESP 16; TEMP 96.6; O2SAT 96
[2016-10-20 08:15] VITALS: PULSE 59
[2016-10-20] MEDS: RESP: ALBUTEROL 2.5 MG/IPRATROPIUM 0.5 MG NEB (SCH) NEB ×2 (08:35→13:37)
[2016-10-20 08:54] LABS: AUTOMATED NEUTROPHIL # 5.1 TH/MM3 (1.8-7.7); BASOPHIL # 0.1 TH/MM3 (0-0.2); BASOPHIL % 0.8 % (0.0-2.0); EOSINOPHIL # 0.4 TH/MM3 (0-0.4); EOSINOPHIL % 5.8 % (0.0-4.0); HEMATOCRIT 31.2 % (39.0-51.0); HEMO FLAGS DIFF FINAL; LYMPH % 10.2 % (9.0-44.0); LYMPHOCYTE # 0.7 TH/MM3 (1.0-4.8); MEAN CELL VOLUME 89.1 FL (80.0-100.0); MEAN CORPUSCULAR HEMOGLOBIN 30.1 PG (27.0-34.0); MEAN CORPUSCULAR HGB CONC 33.8 % (32.0-36.0); NEUT % 72.2 % (16.0-70.0); PLATELET COUNT 227 TH/MM3 (150-450); RED CELL DISTRIBUTION WIDTH 14.4 % (11.6-17.2); WHITE BLOOD COUNT 7.1 TH/MM3 (4.0-11.0)
[2016-10-20] MEDS: DOCUSATE SODIUM 50 MG/SENNA 8.6 MG TAB PO SCH (09:00)
[2016-10-20] MEDS ORDERED: LEVOFLOXACIN 500 MG TAB PO SCH (09:00)
[2016-10-20 09:15] LABS: BICARBONATE 28.8 MEQ/L (21.0-32.0); MAGNESIUM 1.7 MG/DL (1.5-2.5); POTASSIUM 3.2 MEQ/L (3.5-5.1)
[2016-10-20] MEDS: GABAPENTIN 300 MG CAP PO SCH ×3 (09:51→17:07)
[2016-10-20] MEDS: FAMOTIDINE 20 MG TAB PO SCH (09:51)
[2016-10-20] MEDS: MIDODRINE 5 MG TAB PO SCH ×2 (09:51→17:07)
[2016-10-20] MEDS: CLOPIDOGREL 75 MG TAB PO SCH (09:51)
[2016-10-20] MEDS: VENLAFAXINE HCL XR 75 MG CAP PO SCH (09:52)
[2016-10-20] MEDS: CALCIUM/VITAMIN D 250 MG/125 U TAB PO SCH (09:52)
[2016-10-20] MEDS: SODIUM CHLORIDE 0.9% FLUSH 10 ML FLUSH IV FLUSH SCH (09:53)
[2016-10-20] MEDS: METOPROLOL TARTRATE 25 MG TAB PO SCH (09:53)
[2016-10-20] MEDS: oxyCODONE/ACETAMINOPHEN 10 MG/325 MG TAB PO PRN (09:58)
[2016-10-20] MEDS: MULTIVITAMIN-OPHTHALMIC 1 TAB PO SCH (10:57)
[2016-10-20 12:00] VITALS: BP 111/59; PULSE 68; RESP 19; TEMP 97.5; O2SAT 98
[2016-10-20] MEDS ORDERED: LEVA500T20 PO (12:34)
--- NOTE | 2016-10-20 12:43 | HHI.FF ---
Face to Face Verification Diagnosis: (1) Pneumonia (2) UTI (urinary tract infection) (3) Herniation of lumbar intervertebral disc with radiculopathy (4) History of lumbar laminectomy for spinal cord decompression (5) S/P lumbar fusion (6) Parkinson disease (7) Diabetes (8) HTN (hypertension) (9) CAD (coronary artery disease) Physical Therapy Order: Evaluate and Treat, Improve ambulation, Strength and gait training Home Health Nursing Order: Medical education Nursing assessment with vital signs I have seen patient Mu Alatorre on 10/20/16. My clinical findings support the need for the requested home health care services because: Deconditioned w/ increased weakness High risk of falls I certify that my clinical findings support that this patient is homebound because: Unsteady gait/balance Regina Viramontes Oct 20, 2016 12:43
[2016-10-20] MEDS ORDERED: POTASSIUM CHLORIDE 20 MEQ CONTROLLED RELEASE TAB PO ONE (12:45)
--- NOTE | 2016-10-20 12:56 | HHI.DS ---
Discharge Summary Admission Date Oct 16, 2016 at 23:48 Discharge Date: Oct 20, 2016 Admitting Diagnosis AMS DUE TO PNA/UTI (1) Pneumonia Diagnosis: Principal (2) UTI (urinary tract infection) Diagnosis: Principal (3) Mental status change Diagnosis: Secondary (4) Diabetes Diagnosis: Secondary (5) Herniation of lumbar intervertebral disc with radiculopathy Diagnosis: Secondary (6) Hypotension Diagnosis: Secondary (7) Parkinson disease Diagnosis: Secondary (8) H/O aortic valve replacement with tissue graft Diagnosis: Secondary (9) S/P CABG (coronary artery bypass graft) Diagnosis: Secondary (10) PVD (peripheral vascular disease) Diagnosis: Secondary Brief History 86-year-old male presents to the emergency department via EMS for evaluation of altered mental status, fever. Patient was discharge October 11, from [facility] after undergoing L4 to L5 transforaminal interbody fusion, redo decompression laminectomy, pedicle screw fixation on September 21, [address] Joshua. Apparently, he was his usual state of health until approximately 2 days ago became increasingly confused. Patient is a poor historian. He denies any complaints to me. No headache. No chest pain shortness breath. No abdominal pain. No nausea, vomiting, diarrhea. Incision site to the back is without erythema or drainage. Patient is a past medical history of diabetes, Parkinson's disease, RASHMI, hypertension, CAD status post CABG 3 and AVR. Family states earlier in day did not recognize them this evening patient was oriented but was weak. Patient work up in er showed UTI and bilateral pneumonia ,as was in rehab center will place on zosyn and vancomycin . CBC/BMP: 10/20/16 0750 10/20/16 0750 Significant Findings Laboratory Tests Test 10/18/16 10/19/16 10/20/16 10/20/16 06:17 10:28 05:30 07:50 Creatinine 1.32 MG/DL 1.33 MG/DL 1.36 MG/DL (0.60-1.30) (0.60-1.30) (0.60-1.30) Estimat Glomerular Filtration 52 ML/MIN (>89) 51 ML/MIN (>89) 50 ML/MIN (>89) Rate Red Blood Count 3.70 MIL/MM3 3.50 MIL/MM3 (4.50-5.90) (4.50-5.90) Hemoglobin 11.1 GM/DL 10.5 GM/DL (13.0-17.0) (13.0-17.0) Hematocrit 33.2 % 31.2 % (39.0-51.0) (39.0-51.0) Neutrophils (%) (Auto) 80.3 % 72.2 % (16.0-70.0) (16.0-70.0) Lymphocytes (%) (Auto) 7.3 % (9.0-44.0) Lymphocytes # (Auto) 0.5 TH/MM3 0.7 TH/MM3 (1.0-4.8) (1.0-4.8) Potassium Level 3.2 MEQ/L 3.2 MEQ/L (3.5-5.1) (3.5-5.1) Random Glucose 146 MG/DL 121 MG/DL (74-106) (74-106) Calcium Level 7.6 MG/DL 8.0 MG/DL (8.5-10.1) (8.5-10.1) Vancomycin Level Trough 11.3 MCG/ML (5.0-10.0) Mean Platelet Volume 6.8 FL (7.0-11.0) Monocytes (%) (Auto) 11.0 % (0.0-8.0) Eosinophils (%) (Auto) 5.8 % (0.0-4.0) Imaging Last Impressions Chest X-Ray 10/18/16 0800 Signed Impressions: Service Date/Time: October 08:48 - CONCLUSION: 1. Stable bibasilar streakiness. 2. Small bilateral pleural effusions. 3. Stable cardiomegaly. Bert Whittaker MD Head CT 10/18/16 0600 Signed Impressions: Service Date/Time: October 08:57 - CONCLUSION: 1. Stable cerebral atrophy. 2. No acute infarct, acute hemorrhage, mass effect or extra-axial fluid collections. Bert Whittaker MD PE at Discharge General: NAD, Alert but confused Chest: Decreased breath sounds at the cases Cardiac: Regular Abd: +BS, soft ND/NT Ext: RLE slight edema, good pulses. Moves all extremities without difficulty Hospital Course Pneumonia/UTI (urinary tract infection) - Pt is an 86 y/o male with DM, Parkinson disease, RASHMI (non-compliant with CPAP) , HTN, CAD s/p CABG x3 and AVR. - He had recently undergone right L4-5 hemilaminotomy with mirco discectomy on . He had continued complaints of right buttock, hip, and left lateral calf pain and was found to have recurrent disc herniation, facet hypertrophy, grade 1 L4-L5 spondylolisthesis and stenosis. On 09/21/16 he underwent L4-L5 transforaminal interbody fusion, redo decompressive laminectomy, pedicle screw fixation. He was discharged to inpatient rehab at [facility] and was discharged on 10/11/16. - He presented back to [facility] ED via EMS for evaluation of altered mental status, fever on 10/16/16. He was found to have evidence of pneumonia and UTI. - CXR (10/16/16) --> bibasilar infiltrates - Initially febrile with Tmax = 100F at 10AM 10/17 but has been afebrile since that time. - Pt was given Vancomycin/Zosyn (10/16 - 10/19) and Zosyn (10/16 - 10/19) - Pt was started on oral Levaquin 10/20 - he received Duonebs scheduled and prn - Urine for legionella antigen and pneumococcal antigen were negative. - Sputum culture --> normal respiratory chad - Urine Cx --> E. coli - Blood Cx --> NGTD Mental status change - [place] to likely d/t pneumonia/UTI - Improved with treatment as above. 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 - Pt takes midodrine - This was stable during admission Pt will complete a course of antibiotics with Levaquin 500mg po daily x 6 more days. He is to followup with his PCP, Dr. Preston, in 1 week, call for an appt Pt is to followup with Dr. Joshua in 1-2 weeks, call for an appt. Pt was initially recommended for SNF placement at the end of this hospitalization but the pt refused. PT re-evaluated on 10/19 and felt that he was stable for discharge to home with HHC/PT. This will be arranged Pt Condition on Discharge: Stable Discharge Instructions DIET: Follow Instructions for: Heart Healthy Diet, Diabetic Diet Activities you can perform: Regular-No Restrictions Follow up Referrals: Neurosurgery - 2 Weeks with John Joshua MD PCP Follow-up - [address] Flavia Preston New Medications: Levofloxacin (Levaquin) 500 Mg Tablet 500 MG PO DAILY for pneumonia/uti, #6 TAB Continued Medications: Aspirin (Aspirin) 325 Mg Tab 325 MG PO HS, #30 TAB 0 Refills Calcium Carbonate-Cholecalciferol (Os-Jose Angel Extra D3) 500-600 Mg-Unit Tab 1 TAB PO BID for Calcium Supplement, #60 TAB 0 Refills Carbidopa-Levodopa (Sinemet) 25-100 Mg Tab 2.5 TAB PO Q8HR for Parkinson Disease Mgmt, #90 TAB 0 Refills Clopidogrel (Plavix) 75 Mg Tab 75 MG PO DAILY for Blood Clot Prevention, #30 TAB 0 Refills Entacapone (Entacapone) 200 Mg Tab 200 MG PO TID for Parkinson Disease Mgmt, #90 TAB 0 Refills administered concomitantly with each levodopa/carbidopa dose Fenofibrate (Fenofibrate) 145 Mg Tab 145 MG PO HS, #30 TAB 0 Refills Gabapentin (Gabapentin) 300 Mg Cap 300 MG PO TID, #90 CAP 0 Refills Glipizide (Glipizide) 10 Mg Tab 10 MG PO BIDAC for Blood Sugar Management, #60 TAB 0 Refills Take 30 minutes before a meal Linagliptin (Tradjenta) 5 Mg Tab 5 MG PO DAILY for Blood Sugar Management, #30 TAB 0 Refills Metoprolol Tartrate (Metoprolol Tartrate) 25 Mg Tab 12.5 MG PO BID, #30 TAB Midodrine (Midodrine) 5 Mg Tab 5 MG PO BID for Control Low Blood Pressure, #60 TAB 0 Refills Multiple Vitamins W/ Minerals (Ocuvite) 1 Tab 1 TAB PO DAILY for Nutritional Supplement, #30 TAB 0 Refills Oxycodone-Acetaminophen (Oxycodone-Acetaminophen) 10-325 mg Tab 1-2 TAB PO Q6HR PRN for PAIN SCALE 1 TO 10, #120 TAB Ranitidine (Zantac) 150 Mg Tab 150 MG PO DAILY for Reduce Stomach Acid, #30 TAB 0 Refills Rosuvastatin (Crestor) 20 Mg Tab 20 MG PO HS for Cholesterol Management, #30 TAB 0 Refills Sennosides-Docusate Sodium (Senna Plus 8.6-50 mg) 1 Tab Tab 1 TAB PO BID, #60 TAB Venlafaxine (Effexor) 37.5 Mg Tab 37.5 MG PO Q12H, #60 TAB 0 Refills Discontinued Medications: Cyclobenzaprine (Flexeril) 10 Mg Tab 10 MG PO Q8H PRN for MUSCLE SPASM, #90 TAB Additional Information Patient examined. Assessment and plan formulated with Regina Viramontes PA-C. I agree with the above. Regina Viramontes Oct 20, 2016 12:56 Deshawn Parikh DO Oct 22, 2016 21:22
[2016-10-20 16:00] VITALS: BP 129/74; PULSE 72; RESP 18; TEMP 98.7; O2SAT 96
[2016-10-21] MEDS ORDERED: LEVOFLOXACIN 250 MG TAB PO SCH (09:00)
[2016-11-08] MEDS ORDERED: OXYC1TAB36 PO (15:44)
[2016-11-08] MEDS ORDERED: GABA300C5 PO (15:49)
== END 2016-10-20 19:02 | disposition home health service (06) | DRG 190 ==
LOC: NEPC 21:08 → NEDA 23:48 → NEPFCDU 10-17 02:50 → N05A 10-18 19:42
PROVIDERS: ADMIT Hospitalist; ATTEND Hospitalist
DX: J44.0 Chronic obstructive pulmonary disease with (acute) lower respiratory infection (principal); J18.9 Pneumonia, unspecified organism; G20 Parkinson's disease; N39.0 Urinary tract infection, site not specified; G47.33 Obstructive sleep apnea (adult) (pediatric); I10 Essential (primary) hypertension; I25.10 Atherosclerotic heart disease of native coronary artery without angina pectoris; M19.90 Unspecified osteoarthritis, unspecified site; F32.9 Major depressive disorder, single episode, unspecified; K21.9 Gastro-esophageal reflux disease without esophagitis; I73.9 Peripheral vascular disease, unspecified; Z77.090 Contact with and (suspected) exposure to asbestos; M51.16 Intervertebral disc disorders with radiculopathy, lumbar region; H91.90 Unspecified hearing loss, unspecified ear; E11.9 Type 2 diabetes mellitus without complications; Z95.1 Presence of aortocoronary bypass graft; Z95.2 Presence of prosthetic heart valve; Z79.01 Long term (current) use of anticoagulants; Z79.84 Long term (current) use of oral hypoglycemic drugs; Z79.82 Long term (current) use of aspirin
CPT/HCPCS: 70450; 71010; 71020; 80048; 80053; 80202; 81001; 82550; 82565; 82948; 83605; 83735; 84484; 85025; 85610; 85730; 87040; 87070; 87077; 87086; 87186; 87205; 87449; 93005; 94150; 94640; 94664; 96365; 96368; J1815; J2543; J3370; J7030; J7040; J7050

== ENCOUNTER → 2017-02-28 | Day surgery (SDC) | payer MEDICARE ==
[~2017-02-28] VITALS: Ht 179.1 cm; Wt 92.0 kg
[~2017-02-28] MED LIST changes: +ASPI-183 PO; -ASPI325T PO; +CHLORHEXIDINE GLUCONATE 2 % 1 PACK (2 CLOTHS) TOPICAL PRN; +COLA100C5 PO; -CYCL1TAB29 PO; +HYALURONIDASE/LIDOCAINE/BUPIVACAINE 5 ML SYR RIGHT EYE ONE; +LACTATED RINGER'S 1000 ML IV PRN; +LIDOCAINE HCL 1% PF 30 ML VIAL ONE; -METO25TA3 PO; +METO50TA PO; +METOPROLOL TARTRATE 25 MG TAB PO PRN; +OSCAL PO; +POVIDONE IODINE 5% (ANTISEPSIS KIT) 4 APPLICATIONS EACH NARE PRN; +PROPARACAINE HCL 0.5% OPHT SOLN 15 ML BTL RIGHT EYE ONE; +PROPOFOL 200 MG/20 ML AMP ONE; -SENN1TAB PO; +SODIUM CHLORID 0.9% 500 ML IV PRN; +TAMS0.4C4 PO; +TOBRAMYCIN/DEXAMETHASONE OPTH OINT 3.5 GM TUBE ONE; -WHEEMIS3
[2017-02-28] MEDS: CYCLOPENTOLATE HCL 1% OPHT SOLN 2 ML BTL RIGHT EYE SCH ×4 (07:30→07:45)
[2017-02-28] MEDS: PHENYLEPHRINE HCL 10% OPTH SOLN 5 ML BTL RIGHT EYE SCH ×4 (07:30→07:45)
[2017-02-28] MEDS: TROPICAMIDE 1% OPHT SOLN 15 ML BTL RIGHT EYE SCH ×4 (07:30→07:45)
[2017-02-28] MEDS: FLURBIPROFEN 0.03% OPHT SOLN 2.5 ML BTL RIGHT EYE SCH ×4 (07:30→07:45)
[2017-02-28 07:50] VITALS: PULSE 58
[2017-02-28 08:15] VITALS: PULSE 53
[2017-02-28 09:56] VITALS: BP 118/72; PULSE 58; RESP 16; TEMP 98; O2SAT 96
--- NOTE | 2017-02-28 10:37 | MP ---
cc: TYSON MURGUIA M.D. [facility] #: [id number] DATE: 02/28/2017 PREOPERATIVE DIAGNOSIS: Visually significant cataract right eye. POSTOPERATIVE DIAGNOSIS: Visually significant cataract right eye. OPERATION: Phacoemulsification with posterior chamber lens implantation, right eye. SURGEON: Tyson Murguia MD ANESTHESIA: Retrobulbar with MAC. COMPLICATIONS: None. PROCEDURE: After informed consent was obtained, the patient was brought into the operative suite and placed on appropriate monitors by the Anesthesia Service. The patient had received a prior retrobulbar injection of local anesthetic by the Anesthesia Service in the holding area. The patient's operative eye was then prepped and draped in the usual sterile fashion. A wire lid speculum was placed. A paracentesis incision was made in the peripheral cornea with a 1 mm kim keratome. The anterior chamber was filled with viscoelastic. The anterior chamber was then entered through a stepped, clear corneal incision using a sharp 3 mm kim keratome. A circular tear capsulorrhexis was then made with a bent needle cystitome. Following hydrodissection of the lens nucleus with balanced saline, phacoemulsification of the nucleus was performed using a modified chopping technique. The remaining cortex was removed with irrigation/aspiration. The prior two procedures were both performed using the handpieces of the [employer] phaco unit. The capsular bag was then filled with viscoelastic. The intraocular lens was then injected into the capsular bag and positioned. The type of intraocular lens and its power can be found elsewhere in this chart. The remaining viscoelastic was then removed from the anterior chamber with the IA handpiece. The anterior chamber was reformed with balanced saline. The wound was then closed securely with stromal hydration. It was found to be watertight to an intraocular pressure of at least 30 mmHg by palpation. A small amount of balanced salt solution was then removed through the paracentesis site and the intraocular pressure at the end of the case was approximately 20 by palpation. All drapes were then removed. TobraDex ointment was then placed in the eye, which was closed beneath a semi-pressure patch dressing. The patient tolerated this procedure well and left the operating room awake and alert. The patient is to follow-up in my office in the morning. ADDENDUM: Due to the patient's poorly dilating pupil and history of Flomax use, a Malyugin ring was used to promote and maintain adequate pupillary mydriasis during phacoemulsification and lens implantation. MD MALLORIE Street/UTE /9:47 AM /10:11 AM
== END | disposition home or self-care (01) ==
LOC: PHSDC 07:04
PROVIDERS: ATTEND Optometrist Occupational Vision
DX: H26.9 Unspecified cataract (principal)
CPT/HCPCS: 00142; 66984; J7040; V2632

== ENCOUNTER 2017-05-05 18:02 | Observation (INO) | payer MEDICARE ==
[~2017-05-05] VITALS: Ht 177.8 cm; Wt 93.0 kg
[~2017-05-05 18:02] MED LIST changes: -CHLORHEXIDINE GLUCONATE 2 % 1 PACK (2 CLOTHS) TOPICAL PRN; -HYALURONIDASE/LIDOCAINE/BUPIVACAINE 5 ML SYR RIGHT EYE ONE; -LACTATED RINGER'S 1000 ML IV PRN; -LIDOCAINE HCL 1% PF 30 ML VIAL ONE; -METOPROLOL TARTRATE 25 MG TAB PO PRN; -OSCAL PO; -OXYC1TAB36 PO; -POVIDONE IODINE 5% (ANTISEPSIS KIT) 4 APPLICATIONS EACH NARE PRN; -PROPARACAINE HCL 0.5% OPHT SOLN 15 ML BTL RIGHT EYE ONE; -PROPOFOL 200 MG/20 ML AMP ONE; -SODIUM CHLORID 0.9% 500 ML IV PRN; -TOBRAMYCIN/DEXAMETHASONE OPTH OINT 3.5 GM TUBE ONE
[2017-05-05 18:14] VITALS: PULSE 72; RESP 16; TEMP 98.3; O2SAT 96
[2017-05-05] MEDS ORDERED: SODIUM CHLOR 0.9% 1000 ML INJ 1,000 ML IV ONE (18:59)
--- NOTE | 2017-05-05 19:06 | PD ---
HPI Chief Complaint: Bleeding Time Seen by Provider: 18:46 Travel History International Travel<30 days: No Contact w/Intl Traveler<30days: No Traveled to known affect area: No History of Present Illness HPI 87-year-old male with history of Parkinson's on Plavix and aspirin daily status post AVR presents to the emergency department concerned about bright red bleeding per rectum. Patient states that he had a bowel movement yesterday where he noticed blood in the stool. States today that he had a bowel movement and had a significant amount of blood that would not stop. States that the blood was "dripping" from the rectum. Patient denies history of this occurring previously. Patient denies fever, chills, chest pain, shortness of breath, abdominal pain, rectal pain. Patient does not know if he has a history of hemorrhoids. Says he does have a history of ID, diabetes mellitus, stents in legs, hypertension, hyperlipidemia. 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) Cerebrovascular Accident: No Coronary Artery Disease: Yes Diabetes: Yes Patient Takes Glucophage: No Diminished Hearing: Yes ([place]) Endocrine: Yes Gastrointestinal Disorders: Yes GERD: Yes Genitourinary: No Headaches: No Hepatitis: No Hiatal Hernia: No Hypertension: Yes Immune Disorder: No Kidney Stones: No Musculoskeletal: Yes Neurologic: Yes Parkinson's Disease: Yes Psychiatric: Yes Reproductive: No Respiratory: Yes Immunizations Current: No Migraines: No Radiation Therapy: No Renal Failure: Yes Seizures: No Sickle Cell Disease: No Sleep Apnea: Yes (NO CPAP) Thyroid Disease: No Ulcer: No Tetanus Vaccination: < 5 Years Past Surgical History Abdominal Surgery: No AICD: No Arteriovenous Shunt: No Body Medical Devices: BOVINE VALVE, TOOTH IMPLANT, LLE STENTS Cardiac Surgery: Yes (CABG, AORTIC VALVE REPLACEMENT ) Coronary Artery Bypass Graft: Yes (3 VESSELS) Ear Surgery: No Endocrine Surgery: No Eye Surgery: No Genitourinary Surgery: No Gynecologic Surgery: No Insulin Pump: No Joint Replacement: No Neurologic Surgery: Yes (L4-L5 LAMI/ open discectomy) Oral Surgery: Yes (TONSILLECTOMY, TOOTH IMPLANT) Pacemaker: No Thoracic Surgery: No Other Surgery: Yes Social History Alcohol Use: No Tobacco Use: No Substance Use: No Allergies-Medications (Allergen,Severity, Reaction): Coded Allergies: atorvastatin (Verified Allergy, Unknown, 05/05/17) ezetimibe (Verified Allergy, Unknown, 05/05/17) simvastatin (Verified Allergy, Unknown, 05/05/17) Reported Meds & Prescriptions Reported Meds & Active Scripts Active Gabapentin 300 Mg Cap 300 Mg PO TID Zantac (Ranitidine HCl) 150 Mg Tab 150 Mg PO DAILY Midodrine 5 Mg Tab 5 Mg PO BID Os-Jose Angel Extra D3 (Calcium Carbonate-Cholecalciferol) 500-600 Mg-Unit Tab 1 Tab PO BID Ocuvite (Multiple Vitamins W/ Minerals) 1 Tab 1 Tab PO DAILY Crestor (Rosuvastatin Calcium) 20 Mg Tab 20 Mg PO HS Aspirin 325 Mg Tab 325 Mg PO HS Effexor (Venlafaxine HCl) 37.5 Mg Tab 37.5 Mg PO Q12H Plavix (Clopidogrel Bisulfate) 75 Mg Tab 75 Mg PO DAILY Glipizide 10 Mg Tab 10 Mg PO BIDAC Take 30 minutes before a meal Reported Tamsulosin (Tamsulosin HCl) 0.4 Mg Cap 0.4 Mg PO DAILY Metoprolol Tartrate 50 Mg Tab 50 Mg PO BID Colace (Docusate Sodium) 100 Mg Capsule 100 Mg PO BID Entacapone 200 Mg Tab 200 Mg PO TID administered concomitantly with each levodopa/carbidopa dose Sinemet (Carbidopa-Levodopa) 25-100 Mg Tab 2 Tab PO Q8HR Tradjenta (Linagliptin) 5 Mg Tab 5 Mg PO DAILY Fenofibrate 145 Mg Tab 145 Mg PO HS Review of Systems Except as stated in HPI: all other systems reviewed are Neg Physical Exam Narrative GENERAL: Well-developed, well-nourished in NAD SKIN: Focused skin assessment warm/dry. HEAD: Atraumatic. Normocephalic. EYES: Pupils equal and round. No scleral icterus. No injection or drainage. ENT: No nasal bleeding or discharge. Mucous membranes pink and moist. NECK: Trachea midline. No JVD. CARDIOVASCULAR: Regular rate and rhythm. No murmur appreciated. RESPIRATORY: No accessory muscle use. Clear to auscultation. Breath sounds equal bilaterally. GASTROINTESTINAL: Abdomen soft, non-tender, nondistended. Hepatic and splenic margins not palpable. Rectum-redundant tissue surrounding the rectum, no active bleeding, clots present. Red stool. MUSCULOSKELETAL: No obvious deformities. No clubbing. No cyanosis. No edema. NEUROLOGICAL: Awake and alert. No obvious cranial nerve deficits. Motor grossly within normal limits. Normal speech. PSYCHIATRIC: Appropriate mood and affect; insight and judgment normal. Data Data Last Documented VS Vital Signs Date Time Temp Pulse Resp B/P (MAP) Pulse Ox O2 Delivery O2 Flow Rate FiO2 05/05/17 18:31 70 16 97 Room Air 05/05/17 18:14 98.3 Orders Orders Complete Blood Count With Diff (05/05/17 18:59) Comprehensive Metabolic Panel (05/05/17 18:59) Urinalysis - C+S If Indicated (05/05/17 18:59) Lipase (05/05/17 18:59) Iv Access Insert/Monitor (05/05/17 18:59) Ecg Monitoring (05/05/17 18:59) Oximetry (05/05/17 18:59) Sodium Chlor 0.9% 1000 Ml Inj (Ns 1000 M (05/05/17 18:59) Act Partial Throm Time (Ptt) (05/05/17 18:59) Prothrombin Time / Inr (Pt) (05/05/17 18:59) Admit Order (Ed Use Only) (05/05/17 21:12) Labs Laboratory Tests Test 05/05/17 18:41 05/05/17 20:07 White Blood Count 8.2 TH/MM3 Red Blood Count 5.10 MIL/MM3 Hemoglobin 15.5 GM/DL Hematocrit 45.9 % Mean Corpuscular Volume 90.0 FL Mean Corpuscular Hemoglobin 30.3 PG Mean Corpuscular Hemoglobin Concent 33.7 % Red Cell Distribution Width 15.1 % Platelet Count 237 TH/MM3 Mean Platelet Volume 7.6 FL Neutrophils (%) (Auto) 75.9 % Lymphocytes (%) (Auto) 14.5 % Monocytes (%) (Auto) 5.9 % Eosinophils (%) (Auto) 3.2 % Basophils (%) (Auto) 0.5 % Neutrophils # (Auto) 6.2 TH/MM3 Lymphocytes # (Auto) 1.2 TH/MM3 Monocytes # (Auto) 0.5 TH/MM3 Eosinophils # (Auto) 0.3 TH/MM3 Basophils # (Auto) 0.0 TH/MM3 CBC Comment DIFF FINAL Differential Comment Prothrombin Time 11.0 SEC Prothromb Time International Ratio 1.1 RATIO Activated Partial Thromboplast Time 24.7 SEC Blood Urea Nitrogen 26 MG/DL Creatinine 1.88 MG/DL Random Glucose 324 MG/DL Total Protein 8.5 GM/DL Albumin 4.1 GM/DL Calcium Level 9.1 MG/DL Alkaline Phosphatase 54 U/L Aspartate Amino Transf (AST/SGOT) 26 U/L Alanine Aminotransferase (ALT/SGPT) 11 U/L Total Bilirubin 0.4 MG/DL Sodium Level 134 MEQ/L Potassium Level 3.9 MEQ/L Chloride Level 99 MEQ/L Carbon Dioxide Level 29.2 MEQ/L Anion Gap 6 MEQ/L Estimat Glomerular Filtration Rate 34 ML/MIN Lipase 82 U/L Urine Color YELLOW Urine Turbidity CLEAR Urine pH 5.0 Urine Specific [place] 1.021 Urine Protein TRACE mg/dL Urine Glucose (UA) 1000 mg/dL Urine Ketones NEG mg/dL Urine Occult Blood TRACE Urine Nitrite NEG Urine Bilirubin NEG Urine Urobilinogen LESS THAN 2.0 MG/DL Urine Leukocyte Esterase NEG Urine RBC LESS THAN 1 /hpf Microscopic Urinalysis Comment CULT NOT INDICATED MDM Medical Decision Making Medical Screen Exam Complete: Yes Emergency Medical Condition: Yes Differential Diagnosis Bleeding hemorrhoids, GI bleed, diverticulosis Narrative Course 87-year-old male with history of AVR on Plavix, Parkinson's disease, presents emergency department with his family for evaluation of rectal bleeding that started last night. States that he had one episode of bloody stool yesterday and had another episode tonight that was persistent so they decided to come to the emergency department today. Currently, patient denies fevers, chills, abdominal pain, nausea, vomiting, diarrhea, unusual weakness. Vital signs stable at heart rate 70, blood pressure 156/86, SaO2 97% Physical exam demonstrates an 87-year-old male well-developed, well-nourished no apparent distress, resting comfortably in bed. Abdomen soft nontender. Rectal exam demonstrates clots, good rectal tone, appears to be old hemorrhoids without active bleeding. Hemoccult positive. CBC & BMP Diagram 05/05/17 18:41 Total Protein 8.5 H, Albumin 4.1, Calcium Level 9.1, Alkaline Phosphatase 54, Aspartate Amino Transf (AST/SGOT) 26, Alanine Aminotransferase (ALT/SGPT) 11 L, Total Bilirubin 0.4 CBC unremarkable, actually improved from previous visits. Apparent acute kidney injury. Because patient is on Plavix and requires this for his previous aortic valve replacement, acute kidney injury, rectal bleeding, will admit for observation. [facility] Internal Pos. & Neg. Controls: Passed (red stool) Fecal Specimen Occult Blood: Positive Diagnosis Primary Impression: Acute on chronic renal insufficiency Additional Impressions: Hyperglycemia due to type 2 diabetes mellitus Qualified Codes: E11.65 - Type 2 diabetes mellitus with hyperglycemia Rectal bleeding Admitting Information Admitting Physician Requests: Observation Patient Instructions: General Instructions Departure Forms: Tests/Procedures Condition: Stable Staci Goodwin May 05, 2017 19:06
[2017-05-05 20:03] LABS: AUTOMATED NEUTROPHIL # 6.2 TH/MM3 (1.8-7.7); BASOPHIL % 0.5 % (0.0-2.0); EOSINOPHIL # 0.3 TH/MM3 (0-0.4); EOSINOPHIL % 3.2 % (0.0-4.0); HEMATOCRIT 45.9 % (39.0-51.0); HEMOGLOBIN 15.5 GM/DL (13.0-17.0); LYMPH % 14.5 % (9.0-44.0); LYMPHOCYTE # 1.2 TH/MM3 (1.0-4.8); MEAN CORPUSCULAR HEMOGLOBIN 30.3 PG (27.0-34.0); MEAN CORPUSCULAR HGB CONC 33.7 % (32.0-36.0); MEAN PLATELET VOLUME 7.6 FL (7.0-11.0); MONO % 5.9 % (0.0-8.0); MONOCYTE # 0.5 TH/MM3 (0-0.9); NEUT % 75.9 % (16.0-70.0); PLATELET COUNT 237 TH/MM3 (150-450); RED CELL DISTRIBUTION WIDTH 15.1 % (11.6-17.2); WHITE BLOOD COUNT 8.2 TH/MM3 (4.0-11.0)
[2017-05-05 20:15] LABS: INTERNATIONAL NORMALIZED RATIO 1.1 RATIO
[2017-05-05 20:25] LABS: ALBUMIN 4.1 GM/DL (3.4-5.0); ALT (GPT) 11 U/L (12-78); AST (GOT) 26 U/L (15-37); BICARBONATE 29.2 MEQ/L (21.0-32.0); BLOOD UREA NITROGEN 26 MG/DL (7-18); CALCIUM 9.1 MG/DL (8.5-10.1); CHLORIDE 99 MEQ/L (98-107); CREATININE 1.88 MG/DL (0.60-1.30); GLOMERULAR FILTRATION RATE 34 ML/MIN (>89); GLUCOSE,RANDOM 324 MG/DL (74-106); SODIUM (NA) 134 MEQ/L (136-145)
[2017-05-05 20:27] LABS: ALKALINE PHOSPHATASE 54 U/L (45-117); TOTAL BILIRUBIN ADULT 0.4 MG/DL (0.2-1.0); TOTAL PROTEIN 8.5 GM/DL (6.4-8.2)
[2017-05-05 20:39] LABS: BILIRUBIN, URINE NEG (NEG); BLOOD, URINE TRACE (NEG); GLUCOSE,URINE 1000 mg/dL (NEG); KETONE, URINE NEG (NEG); NITRITE,URINE NEG (NEG); URINE COLOR YELLOW (YELLW/STRAW); URINE LEUKOCYTE ESTERASE NEG (NEG)
[2017-05-05] MEDS ORDERED: SODIUM CHLORIDE 0.9% FLUSH 10 ML FLUSH IV FLUSH PRN (21:15)
[2017-05-05] MEDS ORDERED: NALOXONE HCL 0.4 MG/ML AMP IV PUSH PRN (21:15)
[2017-05-05] MEDS ORDERED: ACETAMINOPHEN 325 MG TAB PO PRN (21:15)
[2017-05-05] MEDS ORDERED: MAGNESIUM HYDROXIDE SUSP 30 ML CUP PO PRN (21:15)
[2017-05-05] MEDS ORDERED: ONDANSETRON HCL 4 MG/2 ML VIAL IVP PRN (21:15)
[2017-05-05] MEDS ORDERED: PILL SPLITTER OTHER PRN (21:45)
[2017-05-05] MEDS ORDERED: PANTOPRAZOLE SODIUM 40 MG VIAL IV PUSH SCH (22:00)
[2017-05-05 22:04] VITALS: O2SAT 98
[2017-05-05 22:09] VITALS: BP 132/77; PULSE 72; RESP 16; O2SAT 98
--- NOTE | 2017-05-05 22:19 | RADRPT ---
EXAM DATE/TIME: 05/05/2017 21:22 [facility] COMPARISON: No previous studies available for comparison. INDICATIONS : Rectal bleeding for two days. MEDICAL HISTORY : Cardiovascular disease. Hypertension. Diabetes mellitus type 2. SURGICAL HISTORY : Fusion, lumbar. CABG. ENCOUNTER: Initial ACUITY: 2 days PAIN SCORE: 0/10 LOCATION: Bilateral abdomen. FINDINGS: Supine view of the abdomen was performed. There is screw and bolivar fixation on the right across L4-5. Left iliac stent present. Bowel gas pattern unremarkable. No obstruction or free air. Small right eff usion. CONCLUSION: 1. No acute findings. Postsurgical change as above. Small right effusion. Hermilo Aguilar MD on May 05, 2017 at 22:15 Board Certified Radiologist. This report was verified electronically.
--- NOTE | 2017-05-05 22:21 | RADRPT ---
EXAM DATE/TIME: 05/05/2017 21:19 [facility] COMPARISON: CHEST PA & LAT, October 18, 2016, 8:48. CHEST SINGLE AP, October 16, 2016, 21:52. INDICATIONS : Shortness of breath. MEDICAL HISTORY : Cardiovascular disease. Hypertension. Diabetes mellitus type 2. SURGICAL HISTORY : Fusion, lumbar. CABG ENCOUNTER: Initial ACUITY: 1 day PAIN SCORE: 0/10 LOCATION: Bilateral chest FINDINGS: A single view of the chest demonstrates postop CABG. Mild basilar fibrotic changes in the lungs. No e ffusion. Pleural thickening and calcification. No pneumothorax. CONCLUSION: 1. 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 Findings similar to October 02 7. Hermilo Aguilar MD on May 05, 2017 at 22:17 Board Certified Radiologist. This report was verified electronically.
[2017-05-05] MEDS: NS + KCL 20 MEQ INJ 1,000 ML IV SCH (23:06)
[2017-05-05 23:39] VITALS: BP 131/66; PULSE 67; RESP 18; TEMP 98.5; O2SAT 97
[2017-05-06] VITALS (7 sets, daily range): BP systolic 112–135; BP diastolic 65–72; PULSE 54–75; RESP 16–19; TEMP 96.4–98.1; O2SAT 94–97
[2017-05-06] MEDS: CARBIDOPA/LEVODOPA 25 MG/100 MG TAB PO SCH ×4 (00:03→21:27)
[2017-05-06 04:05] LABS: AUTOMATED NEUTROPHIL # 5.3 TH/MM3 (1.8-7.7); BASOPHIL # 0.1 TH/MM3 (0-0.2); BASOPHIL % 0.8 % (0.0-2.0); EOSINOPHIL # 0.4 TH/MM3 (0-0.4); EOSINOPHIL % 4.4 % (0.0-4.0); HEMATOCRIT 39.8 % (39.0-51.0); HEMOGLOBIN 13.8 GM/DL (13.0-17.0); LYMPH % 20.3 % (9.0-44.0); LYMPHOCYTE # 1.7 TH/MM3 (1.0-4.8); MEAN CELL VOLUME 88.1 FL (80.0-100.0); MEAN CORPUSCULAR HEMOGLOBIN 30.5 PG (27.0-34.0); MEAN CORPUSCULAR HGB CONC 34.7 % (32.0-36.0); MEAN PLATELET VOLUME 7.3 FL (7.0-11.0); MONOCYTE # 0.7 TH/MM3 (0-0.9); NEUT % 65.5 % (16.0-70.0); PLATELET COUNT 206 TH/MM3 (150-450); RED BLOOD COUNT 4.52 MIL/MM3 (4.50-5.90); RED CELL DISTRIBUTION WIDTH 14.9 % (11.6-17.2); WHITE BLOOD COUNT 8.1 TH/MM3 (4.0-11.0)
[2017-05-06 04:33] LABS: BICARBONATE 28.8 MEQ/L (21.0-32.0); CALCIUM 8.5 MG/DL (8.5-10.1); CREATININE 1.61 MG/DL (0.60-1.30)
[2017-05-06] MEDS ORDERED: GLUCAGON 1 MG/ML VIAL OTHER PRN (07:45)
[2017-05-06] MEDS ORDERED: DEXTROSE 50% IN WATER 50 ML VIAL(D50) IV PUSH PRN (07:45)
--- NOTE | 2017-05-06 07:45 | HHI.HP ---
HPI Service [facility] Hospitalists Primary Care Physician Flavia Preston MD Admission Diagnosis Rectal bleeding, hyperglycemia, KYLE Chief Complaint: rectal bleeding Travel History International Travel<30 Days: No Contact w/Intl Traveler <30 Da: No Traveled to Known Affected Are: No History of Present Illness 86-year-old male patient with past medical history which includes diabetes mellitus, Parkinson's disease, hypertension, hype hyperlipidemia, coronary artery disease status post CABG, GERD, degenerative disc disease and history of bovine cardiac valve replacement. Patient does take Plavix and aspirin daily. Patient presented to the emergency department concerned about bright red bleeding per rectum. Patient states that he had a bowel movement yesterday where he noticed blood in the stool. Then today that he had a bowel movement which had a significant amount of blood that would not stop. States that the blood was "dripping" from the rectum. Patient denies history of this occurring previously. Patient denies fever, chills, chest pain, shortness of breath, abdominal pain, rectal pain. Patient does not know if he has a history of hemorrhoids. Past Family Social History Past Medical History diabetes mellitus, Parkinson's disease, hypertension, hype hyperlipidemia, coronary artery disease status post CABG, GERD, degenerative disc disease and history of bovine cardiac valve replacement Past Surgical History bovine cardiac valve replacement, CABG x 3, tonsillectomy Reported Medications Gabapentin 300 Mg Cap 300 Mg PO TID Zantac (Ranitidine HCl) 150 Mg Tab 150 Mg PO DAILY Midodrine 5 Mg Tab 5 Mg PO BID Os-Jose Angel Extra D3 (Calcium Carbonate-Cholecalciferol) 500-600 Mg-Unit Tab 1 Tab PO BID Ocuvite (Multiple Vitamins W/ Minerals) 1 Tab 1 Tab PO DAILY Crestor (Rosuvastatin Calcium) 20 Mg Tab 20 Mg PO HS Aspirin 325 Mg Tab 325 Mg PO HS Effexor (Venlafaxine HCl) 37.5 Mg Tab 37.5 Mg PO Q12H Plavix (Clopidogrel Bisulfate) 75 Mg Tab 75 Mg PO DAILY Glipizide 10 Mg Tab 10 Mg PO BIDAC Take 30 minutes before a meal Tamsulosin (Tamsulosin HCl) 0.4 Mg Cap 0.4 Mg PO DAILY Metoprolol Tartrate 50 Mg Tab 50 Mg PO BID Colace (Docusate Sodium) 100 Mg Capsule 100 Mg PO BID Entacapone 200 Mg Tab 200 Mg PO TID administered concomitantly with each levodopa/carbidopa dose Sinemet (Carbidopa-Levodopa) 25-100 Mg Tab 2 Tab PO Q8HR Tradjenta (Linagliptin) 5 Mg Tab 5 Mg PO DAILY Fenofibrate 145 Mg Tab 145 Mg PO HS Allergies: Coded Allergies: atorvastatin (Verified Allergy, Unknown, 05/05/17) ezetimibe (Verified Allergy, Unknown, 05/05/17) simvastatin (Verified Allergy, Unknown, 05/05/17) Family History Reviewed and noncontributory Social History Denies EtOH use tobacco use or illicit drug use Physical Exam Vital Signs Vital Signs Date Time Temp Pulse Resp B/P (MAP) Pulse Ox O2 Delivery O2 Flow Rate FiO2 05/06/17 03:20 98.1 68 18 135/72 (93) 97 05/05/17 23:39 98.5 67 18 131/66 (87) 97 05/05/17 22:18 05/05/17 22:09 72 16 132/77 (95) 98 Room Air 05/05/17 22:04 98 Room Air 05/05/17 18:31 70 16 97 Room Air 05/05/17 18:14 98.3 72 16 96 Physical Exam GENERAL: This is a well-nourished, well-developed patient, in no apparent distress. SKIN: No rashes, ecchymoses or lesions. Cool and dry. HEAD: Atraumatic. Normocephalic. No temporal or scalp tenderness. EYES: Pupils equal round and reactive. Extraocular motions intact. No scleral icterus. No injection or drainage. ENT: Nose without bleeding, purulent drainage or septal hematoma. Throat without erythema, tonsillar hypertrophy or exudate. Uvula midline. Airway patent. NECK: Trachea midline. No JVD or lymphadenopathy. Supple, nontender, no meningeal signs. CARDIOVASCULAR: Regular rate and rhythm without murmurs, gallops, or rubs. RESPIRATORY: Clear to auscultation. Breath sounds equal bilaterally. No wheezes , rales, or rhonchi. GASTROINTESTINAL: Abdomen soft, non-tender, nondistended. No hepato-splenomegaly , or palpable masses. No guarding. MUSCULOSKELETAL: Extremities without clubbing, cyanosis, or edema. No joint tenderness, effusion, or edema noted. No calf tenderness. Negative Homans sign bilaterally. NEUROLOGICAL: Awake and alert. Cranial nerves II through XII intact. Motor and sensory grossly within normal limits. Five out of 5 muscle strength in all muscle groups. Normal speech. Laboratory Laboratory Tests Test 05/05/17 18:41 05/05/17 20:07 05/06/17 03:38 White Blood Count 8.2 8.1 Red Blood Count 5.10 4.52 Hemoglobin 15.5 13.8 Hematocrit 45.9 39.8 Mean Corpuscular Volume 90.0 88.1 Mean Corpuscular Hemoglobin 30.3 30.5 Mean Corpuscular Hemoglobin Concent 33.7 34.7 Red Cell Distribution Width 15.1 14.9 Platelet Count 237 206 Mean Platelet Volume 7.6 7.3 Neutrophils (%) (Auto) 75.9 65.5 Lymphocytes (%) (Auto) 14.5 20.3 Monocytes (%) (Auto) 5.9 9.0 Eosinophils (%) (Auto) 3.2 4.4 Basophils (%) (Auto) 0.5 0.8 Neutrophils # (Auto) 6.2 5.3 Lymphocytes # (Auto) 1.2 1.7 Monocytes # (Auto) 0.5 0.7 Eosinophils # (Auto) 0.3 0.4 Basophils # (Auto) 0.0 0.1 CBC Comment DIFF FINAL DIFF FINAL Differential Comment Prothrombin Time 11.0 Prothromb Time International Ratio 1.1 Activated Partial Thromboplast Time 24.7 Blood Urea Nitrogen 26 20 Creatinine 1.88 1.61 Random Glucose 324 117 Total Protein 8.5 Albumin 4.1 Calcium Level 9.1 8.5 Alkaline Phosphatase 54 Aspartate Amino Transf (AST/SGOT) 26 Alanine Aminotransferase (ALT/SGPT) 11 Total Bilirubin 0.4 Sodium Level 134 139 Potassium Level 3.9 4.0 Chloride Level 99 107 Carbon Dioxide Level 29.2 28.8 Anion Gap 6 3 Estimat Glomerular Filtration Rate 34 41 Lipase 82 Urine Color YELLOW Urine Turbidity CLEAR Urine pH 5.0 Urine Specific [place] 1.021 Urine Protein TRACE Urine Glucose (UA) 1000 Urine Ketones NEG Urine Occult Blood TRACE Urine Nitrite NEG Urine Bilirubin NEG Urine Urobilinogen LESS THAN 2.0 Urine Leukocyte Esterase NEG Urine RBC LESS THAN 1 Microscopic Urinalysis Comment CULT NOT INDICATED Result Diagram: 05/06/1733705/06/17337 Caprini VTE Risk Assessment Caprini VTE Risk Assessment: Mod/High Risk (score >= 2) Caprini Risk Assessment Model Point Value = 1 Point Value = 2 Point Value = 3 Point Value = 5 Age 41-60 Minor surgery BMI > 25 kg/m2 Swollen legs Varicose veins or History of unexplained or recurrent spontaneous Oral contraceptives or hormone replacement Sepsis (< 1 month) Serious lung disease, including pneumonia (< 1 month) Abnormal pulmonary function Acute myocardial infarction Congestive heart failure (< 1 month) History of inflammatory bowel disease Medical patient at bed rest Age 61-74 Arthroscopic surgery Major open surgery (> 45 min) Laparoscopic surgery (> 45 min) Malignancy Confined to bed (> 72 hours) Immobilizing plaster cast Central venous access Age >= 75 History of VTE Family history of VTE Factor V Leiden Prothrombin [id number] Lupus anticoagulant Anticardiolipin antibodies Elevated serum homocysteine Heparin-induced thrombocytopenia Other congenital or acquired thrombophilia Stroke (< 1 month) Elective arthroplasty Hip, pelvis, or leg fracture Acute spinal cord injury (< 1 month) Prophylaxis Regimen Total Risk Factor Score Risk Level Prophylaxis Regimen 0-1 Low Early ambulation 2 Moderate Order ONE of the following: *Sequential Compression Device (SCD) *Heparin 5000 units SQ BID 3-4 Higher Order ONE of the following medications: *Heparin 5000 units SQ TID *Enoxaparin/Lovenox 40 mg SQ daily (WT < 150 kg, CrCl > 30 mL/min) *Enoxaparin/Lovenox 30 mg SQ daily (WT < 150 kg, CrCl > 10-29 mL/min) *Enoxaparin/Lovenox 30 mg SQ BID (WT < 150 kg, CrCl > 30 mL/min) AND/OR *Sequential Compression Device (SCD) 5 or more Highest Order ONE of the following medications: *Heparin 5000 units SQ TID (Preferred with Epidurals) *Enoxaparin/Lovenox 40 mg SQ daily (WT < 150 kg, CrCl > 30 mL/min) *Enoxaparin/Lovenox 30 mg SQ daily (WT < 150 kg, CrCl > 10-29 mL/min) *Enoxaparin/Lovenox 30 mg SQ BID (WT < 150 kg, CrCl > 30 mL/min) AND *Sequential Compression Device (SCD) Assessment and Plan Problem List: (1) Rectal bleeding ICD Codes: K62.5 - Hemorrhage of anus and rectum Status: Acute Plan: Rectal bleeding Patient reports he had bright red rectal bleeding which started 2 days ago and then had a second episode of rectal bleeding with continual dripping of blood per rectum yesterday therefore he presented to the emergency department Patient's hemoglobin upon admission 15.5 repeat 13.8 Vital signs stable Fecal occult Positive in emergency department Hold aspirin and Plavix IV fluids Protonix 40 mg IV twice a day Serial hemoglobin and hematocrit Consult gastroenterology Supportive care Monitor CKD admission BUN 26 creatinine 1.88, estimated GFR 34 Repeat creatinine 1.61 Baseline BUN in the 20s, creatinine around 1.6, and GFR high 30s to low 40s Hypotension Continue patient's home midodrine 5 mg twice a day Parkinson's disease Continue patient's carbidopa levodopa Diabetes mellitus Patient at home takes Tradjenta 5 mg by mouth daily, glipizide 10 mg by mouth twice a day we'll hold at this time as patient is currently on clear liquid diet and likely will become nothing by mouth Accu-Cheks before meals at bedtime with sliding scale insulin coverage BPH Continue patient's home Flomax Obstructive sleep apnea Patient may use home CPAP device DVT prophylaxis with SCDs avoid chemical DVT prophylaxis due to rectal bleeding (2) HTN (hypertension) ICD Codes: I10 - Essential (primary) hypertension Status: Chronic (3) Parkinson disease ICD Codes: G20 - Parkinson's disease Status: Chronic (4) Diabetes mellitus ICD Codes: E11.9 - Diabetes mellitus Status: Chronic (5) RASHMI (obstructive sleep apnea) ICD Codes: G47.33 - Obstructive sleep apnea (adult) (pediatric) Status: Chronic Assessment and Plan Patient examined. Assessment and plan formulated with Nilda Serrano PA-C. I agree with the above. rectal bleed. hgb stable. colonoscopy in AM Nilda Serrano May 06, 2017 07:45 Ye Phillips MD May 06, 2017 16:33
[2017-05-06] MEDS: INSULIN ASPART SUPPLEMENTAL SCALE SQ SCH ×4 (08:00→21:30)
[2017-05-06] MEDS: SODIUM CHLORIDE 0.9% FLUSH 10 ML FLUSH IV FLUSH SCH ×2 (09:00→21:00)
[2017-05-06] MEDS ORDERED: ENTACAPONE 200 MG PO SCH (09:00)
[2017-05-06] MEDS ORDERED: FAMOTIDINE 20 MG TAB PO SCH (09:00)
--- NOTE | 2017-05-06 09:27 | PD.CONS ---
HPI History of Present Illness This is a 87 year old male with CAD on plavix and ASA who presented to the ER for rectal bleeding. ONset 2 day ago. Yesterday there was copious rectal bleeding independent of stool. Never had before. Denies abd pain, n/v, weight loss, black tarry stool. Had colonoscopy "years ago", he is not sure who did it and says nothing was found. Takes plavix and aspirin. (Monica Whitmore) PFSH Past Medical History CAD DM parkinsons HTN HLD CAD DDD spinal stenosis Past Surgical History CABG valve replacement stents left leg back surgery - fusion (Monica Whitmore) Coded Allergies: atorvastatin (Verified Allergy, Unknown, 05/05/17) ezetimibe (Verified Allergy, Unknown, 05/05/17) simvastatin (Verified Allergy, Unknown, 05/05/17) Family History denies Social History denies etoh, use of tobacco, illicit drug use (Monica Whitmore) Review of Systems Constitutional: DENIES: Weight loss Endocrine: DENIES: Polydipsia Eyes: DENIES: Blurred vision Ears, nose, mouth, throat: COMPLAINS OF: Hearing loss Respiratory: DENIES: Cough Cardiovascular: DENIES: Chest pain Gastrointestinal: COMPLAINS OF: Bloody stools, DENIES: Abdominal pain, Black stools, Nausea, Vomiting Genitourinary: DENIES: Hematuria Musculoskeletal: COMPLAINS OF: Back pain, DENIES: Muscle aches Integumentary: DENIES: Abnormal pigmentation Hematologic/lymphatic: DENIES: Bruising Immunologic/allergic: DENIES: Eczema Neurologic: DENIES: Headache Psychiatric: DENIES: Confusion (Monica Whitmore) GI Exam Vitals I&O Vital Signs Date Time Temp Pulse Resp B/P (MAP) Pulse Ox O2 Delivery O2 Flow Rate FiO2 05/06/17 08:37 66 05/06/17 08:00 96.7 70 19 128/72 (90) 94 05/06/17 03:20 98.1 68 18 135/72 (93) 97 05/05/17 23:39 98.5 67 18 131/66 (87) 97 05/05/17 22:18 05/05/17 22:09 72 16 132/77 (95) 98 Room Air 05/05/17 22:04 98 Room Air 05/05/17 18:31 70 16 97 Room Air 05/05/17 18:14 98.3 72 16 96 I/O 05/05/17 05/05/17 05/05/17 05/06/17 05/06/17 05/06/17 07:00 15:00 23:00 07:00 15:00 23:00 Intake Total 2400 ml Balance 2400 ml Intake Oral 400 ml IV Total 2000 ml Imaging Last Impressions Chest X-Ray 05/05/172108 Signed Impressions: Service Date/Time: Friday, May 05, 2017 21:19 - CONCLUSION: 1. 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 Findings similar to October 18. Hermilo Aguilar MD Abdomen X-Ray 05/05/17 0000 Signed Impressions: Service Date/Time: Friday, May 05, 2017 21:22 - CONCLUSION: 1. No acute findings. Postsurgical change as above. Small right effusion. Hermilo Aguilar MD Laboratory Test 05/05/17 18:41 05/05/17 20:07 05/06/17 03:38 White Blood Count 8.2 TH/MM3 8.1 TH/MM3 Red Blood Count 5.10 MIL/MM3 4.52 MIL/MM3 Hemoglobin 15.5 GM/DL 13.8 GM/DL Hematocrit 45.9 % 39.8 % Mean Corpuscular Volume 90.0 FL 88.1 FL Mean Corpuscular Hemoglobin 30.3 PG 30.5 PG Mean Corpuscular Hemoglobin Concent 33.7 % 34.7 % Red Cell Distribution Width 15.1 % 14.9 % Platelet Count 237 TH/MM3 206 TH/MM3 Mean Platelet Volume 7.6 FL 7.3 FL Neutrophils (%) (Auto) 75.9 % 65.5 % Lymphocytes (%) (Auto) 14.5 % 20.3 % Monocytes (%) (Auto) 5.9 % 9.0 % Eosinophils (%) (Auto) 3.2 % 4.4 % Basophils (%) (Auto) 0.5 % 0.8 % Neutrophils # (Auto) 6.2 TH/MM3 5.3 TH/MM3 Lymphocytes # (Auto) 1.2 TH/MM3 1.7 TH/MM3 Monocytes # (Auto) 0.5 TH/MM3 0.7 TH/MM3 Eosinophils # (Auto) 0.3 TH/MM3 0.4 TH/MM3 Basophils # (Auto) 0.0 TH/MM3 0.1 TH/MM3 CBC Comment DIFF FINAL DIFF FINAL Differential Comment Prothrombin Time 11.0 SEC Prothromb Time International Ratio 1.1 RATIO Activated Partial Thromboplast Time 24.7 SEC Blood Urea Nitrogen 26 MG/DL 20 MG/DL Creatinine 1.88 MG/DL 1.61 MG/DL Random Glucose 324 MG/DL 117 MG/DL Total Protein 8.5 GM/DL Albumin 4.1 GM/DL Calcium Level 9.1 MG/DL 8.5 MG/DL Alkaline Phosphatase 54 U/L Aspartate Amino Transf (AST/SGOT) 26 U/L Alanine Aminotransferase (ALT/SGPT) 11 U/L Total Bilirubin 0.4 MG/DL Sodium Level 134 MEQ/L 139 MEQ/L Potassium Level 3.9 MEQ/L 4.0 MEQ/L Chloride Level 99 MEQ/L 107 MEQ/L Carbon Dioxide Level 29.2 MEQ/L 28.8 MEQ/L Anion Gap 6 MEQ/L 3 MEQ/L Estimat Glomerular Filtration Rate 34 ML/MIN 41 ML/MIN Lipase 82 U/L Urine Color YELLOW Urine Turbidity CLEAR Urine pH 5.0 Urine Specific [place] 1.021 Urine Protein TRACE mg/dL Urine Glucose (UA) 1000 mg/dL Urine Ketones NEG mg/dL Urine Occult Blood TRACE Urine Nitrite NEG Urine Bilirubin NEG Urine Urobilinogen LESS THAN 2.0 MG/DL Urine Leukocyte Esterase NEG Urine RBC LESS THAN 1 /hpf Microscopic Urinalysis Comment CULT NOT INDICATED Physical Examination HEENT: PERRL no jaundice. CHEST: CTA CARDIAC: RRR +click ABDOMEN: Soft, nondistended, nontender; no hepatosplenomegaly; bowel sounds are present in all four quadrants. EXTREMITIES: No clubbing, cyanosis, or edema. SKIN: Normal; no rash; no jaundice. ACTIVITIES CONCIERGE: No focal deficits; alert and oriented times three. (Monica Whitmore) Assessment and Plan Plan ASSESSMENT - BRBPR - rectal bleeding independent of stool, copious yesterday. no other sx. last colonoscopy "years" ago and normal per pt. was on plavix and asa, this is held. HH currently WNL. PLAN - colonoscopy tomorrow - obtain consent - clears today - NPO after midnight - GoLlesterly prep - monitor for bleeding - monitor HH - further recs to follow pt seen by myself and Dr Anand and this note is on his behalf (Monica Whitmore) Physician Comments Seen and examined, plan as above, will proceed with Colonoscopy in AM. Further recommendations to follow. Thank you for the consult. (Adeel Anand MD) Monica Whitmore May 06, 2017 09:27 Adeel Anand MD May 06, 2017 15:30
[2017-05-06] MEDS: TAMSULOSIN HCL 0.4 MG CAP PO SCH (09:50)
[2017-05-06] MEDS: MIDODRINE 5 MG TAB PO SCH ×2 (09:50→21:38)
[2017-05-06] MEDS: PANTOPRAZOLE SODIUM 40 MG VIAL IV PUSH SCH ×2 (09:50→21:27)
[2017-05-06] MEDS: GABAPENTIN 300 MG CAP PO SCH ×3 (09:51→18:26)
[2017-05-06] MEDS: VENLAFAXINE HCL XR 75 MG CAP PO SCH (09:51)
[2017-05-06] MEDS: METOPROLOL TARTRATE 50 MG TAB PO SCH ×2 (09:51→21:28)
[2017-05-06] MEDS: DOCUSATE SODIUM 100 MG CAP PO SCH ×2 (09:51→21:00)
[2017-05-06] MEDS: MULTIVITAMIN-OPHTHALMIC 1 TAB PO SCH (09:51)
[2017-05-06] MEDS: NS + KCL 20 MEQ INJ 1,000 ML IV SCH ×2 (09:53→12:45)
--- NOTE | 2017-05-06 13:29 | EKG ---
Date Performed: 05/05/2017 Time Performed: 22:01:03 PTAGE: 87 years EKG: Sinus rhythm WITH FIRST DEGREE AV BLOCK MARKED LEFT AXIS DEVIATION POSSIBLE ANTERIOR MYOCARDIAL INFARCTION ABNORM AL ECG PREVIOUS TRACING : 10/16/2016 21.17 Since the prior tracing, there has been no significant granados DOCTOR: Bennett Pittman Interpretating Date/Time 05/06/2017 13:27:26
[2017-05-06] MEDS ORDERED: PEG (High)/E-LYTE SOLN 4000 ML BTL PO ONE (16:30)
[2017-05-06] MEDS ORDERED: LACTATED RINGER'S 1000 ML IV PRN (20:00)
[2017-05-06] MEDS ORDERED: POVIDONE IODINE 5% (ANTISEPSIS KIT) 4 APPLICATIONS EACH NARE PRN (20:00)
[2017-05-06] MEDS ORDERED: SODIUM CHLORID 0.9% 500 ML IV PRN (20:00)
[2017-05-06] MEDS ORDERED: CHLORHEXIDINE GLUCONATE 2 % 1 PACK (2 CLOTHS) TOPICAL PRN (20:00)
[2017-05-06] MEDS ORDERED: FENOFIBRATE 145 MG TAB PO SCH (21:00)
[2017-05-06] MEDS ORDERED: ATORVASTATIN 40 MG TAB PO SCH (21:00)
[2017-05-07] MEDS: NS + KCL 20 MEQ INJ 1,000 ML IV SCH (01:49)
[2017-05-07 04:05] VITALS: PULSE 58
[2017-05-07 04:18] LABS: AUTOMATED NEUTROPHIL # 6.2 TH/MM3 (1.8-7.7); BASOPHIL % 0.4 % (0.0-2.0); EOSINOPHIL # 0.3 TH/MM3 (0-0.4); EOSINOPHIL % 3.7 % (0.0-4.0); HEMATOCRIT 39.4 % (39.0-51.0); HEMOGLOBIN 13.4 GM/DL (13.0-17.0); LYMPH % 14.1 % (9.0-44.0); LYMPHOCYTE # 1.2 TH/MM3 (1.0-4.8); MEAN CORPUSCULAR HEMOGLOBIN 30.3 PG (27.0-34.0); MEAN CORPUSCULAR HGB CONC 34.1 % (32.0-36.0); MEAN PLATELET VOLUME 7.2 FL (7.0-11.0); MONO % 7.3 % (0.0-8.0); MONOCYTE # 0.6 TH/MM3 (0-0.9); NEUT % 74.5 % (16.0-70.0); PLATELET COUNT 206 TH/MM3 (150-450); RED BLOOD COUNT 4.43 MIL/MM3 (4.50-5.90); RED CELL DISTRIBUTION WIDTH 14.9 % (11.6-17.2); WHITE BLOOD COUNT 8.4 TH/MM3 (4.0-11.0)
[2017-05-07 04:41] VITALS: BP 115/69; PULSE 65; RESP 14; TEMP 98; O2SAT 98
[2017-05-07] MEDS: CARBIDOPA/LEVODOPA 25 MG/100 MG TAB PO SCH ×2 (05:22→13:09)
[2017-05-07] MEDS: INSULIN ASPART SUPPLEMENTAL SCALE SQ SCH ×2 (07:53→13:09)
[2017-05-07] MEDS: METOPROLOL TARTRATE 50 MG TAB PO SCH (07:54)
[2017-05-07 08:00] VITALS: BP 129/77; PULSE 64; RESP 17; TEMP 97.3; O2SAT 94
[2017-05-07] MEDS: DOCUSATE SODIUM 100 MG CAP PO SCH (09:00)
[2017-05-07] MEDS: SODIUM CHLORIDE 0.9% FLUSH 10 ML FLUSH IV FLUSH SCH (09:00)
--- NOTE | 2017-05-07 09:10 | GIPROC ---
[facility] [address] [facility]. [facility], [address] COLONOSCOPY PROCEDURE REPORT EXAM DATE: 05/07/2017 PATIENT NAME: Mu Alatorre V MR #: [id number] BIRTHDATE: 1930 ENDOSCOPIST: Adeel Anand MD ORDER #: [id number] MATERIAL STOCKKEEPER YARD: Zackary Vanessa and Luz Maria Abbasi STATUS: inpatient INDICATIONS: The patient is a 87 yr old male here for a colonoscopy due to hematochezia PROCEDURE PERFORMED: Colonoscopy, diagnostic MEDICATIONS: None and Per Anesthesia. PREP QUALITY: adequate PREP TYPE:Magnesium Citrate ESTIMATED BLOOD LOSS: None CONSENT: The patient understands the risks and benefits of the procedure and understands that these risks include, but are not limited to: sedation, allergic reaction, infection, perforation and/or bleeding. Alternative means of evaluation and treatment include, among others: physical exam, x-rays, and/or surgical intervention. The patient elects to proceed with this endoscopic procedure. medical equipment was checked for proper function. Hand hygiene and appropriate measures for infection prevention was taken. After the risks, benefits and alternatives of the procedure were thoroughly explained, Informed consent was verified, confirmed and timeout was successfully executed by the treatment team. A digital exam revealed no abnormalities of the rectum The Pentax [id number] endoscope was introduced through the anus and advanced to the cecum, which was identified by both the appendix and ileocecal valve. The instrument was then slowly withdrawn as the colon was fully examined. COLON FINDINGS: Moderate sized internal hemorrhoids were found. Retroflexed views revealed no abnormalities The scope was then completely withdrawn from the patient and the procedure terminated. PROCEDURE WITHDRAWAL TIME:10minutes ADVERSE EVENTS: There were no complications. IMPRESSIONS: 1. Moderate sized internal hemorrhoids 2. Otherwise normal colon exam RECOMMENDATIONS: High fiber diet RECALL: Return 10 years Colonoscopy Adeel Anand MD eSigned: Adeel Anand MD 05/07/2017 9:09 AM cc:
--- NOTE | 2017-05-07 09:56 | HHI.DCPOC ---
Discharge Care Plan Diagnosis: (1) Rectal bleeding (2) Parkinson disease (3) Diabetes mellitus Goals to Promote Your Health * To prevent worsening of your condition and complications * To maintain your health at the optimal level Directions to Meet Your Goals Take your medications as prescribed Follow your dietary instruction Follow activity as directed Keep your appointments as scheduled Take your immunizations and boosters as scheduled If your symptoms worsen call your PCP, if no PCP go to Urgent Care Center or Emergency Room Smoking is Dangerous to Your Health. Avoid second hand smoke Call the 24-hour hour crisis hotline for domestic abuse at Nilda Serrano May 07, 2017 09:56
--- NOTE | 2017-05-07 09:58 | HHI.FF ---
Face to Face Verification Diagnosis: (1) Impaired mobility and activities of daily living (2) Diabetes (3) Rectal bleeding (4) Parkinson disease Physical Therapy Order: Evaluate and Treat, Strength and gait training Occupational Therapy Order: Evaluate and Treat Home Health Nursing Order: Medical education Signs/symptoms of disease process Medication education-adverse effect I have seen patient Mu Alatorre on 05/07/17. My clinical findings support the need for the requested home health care services because: Ltd mobility - disease progression Limited ability to care for self I certify that my clinical findings support that this patient is homebound because: Impaired cognitive ability/safety Unsteady gait/balance Nilda Serrano May 07, 2017 09:58 Ye Phillips MD May 07, 2017 15:06
--- NOTE | 2017-05-07 10:03 | HHI.PR ---
Subjective Remarks Patient is S/P colonoscopy today with Dr. Anand Patient reports no bleeding since yesterday Objective Vitals Vital Signs Date Time Temp Pulse Resp B/P (MAP) Pulse Ox O2 Delivery O2 Flow Rate FiO2 05/07/17 09:15 97.0 54 16 105/52 (69) 96 05/07/17 08:00 97.3 64 17 129/77 (94) 94 05/07/17 04:41 98.0 65 14 115/69 (84) 98 05/07/17 04:05 58 05/06/17 20:14 98.0 75 16 112/65 (81) 96 05/06/17 16:00 97.6 60 18 125/71 (89) 95 05/06/17 12:00 96.4 58 19 132/65 (87) 96 05/06/17 11:55 54 05/07/17 05/07/17 05/08/17 15:00 23:00 07:00 Intake Total 600 ml Output Total 0 ml Balance 600 ml IV Total 600 ml Estimated Blood Loss 0 ml Result Diagram: 05/07/17 0351 05/06/17 0338 Other Results Laboratory Tests Test 05/05/17 18:41 05/05/17 20:07 05/06/17 03:38 05/07/17 03:51 White Blood Count 8.2 TH/MM3 8.1 TH/MM3 8.4 TH/MM3 Red Blood Count 5.10 MIL/MM3 4.52 MIL/MM3 4.43 MIL/MM3 Hemoglobin 15.5 GM/DL 13.8 GM/DL 13.4 GM/DL Hematocrit 45.9 % 39.8 % 39.4 % Mean Corpuscular Volume 90.0 FL 88.1 FL 89.0 FL Mean Corpuscular Hemoglobin 30.3 PG 30.5 PG 30.3 PG Mean Corpuscular Hemoglobin Concent 33.7 % 34.7 % 34.1 % Red Cell Distribution Width 15.1 % 14.9 % 14.9 % Platelet Count 237 TH/MM3 206 TH/MM3 206 TH/MM3 Mean Platelet Volume 7.6 FL 7.3 FL 7.2 FL Neutrophils (%) (Auto) 75.9 % 65.5 % 74.5 % Lymphocytes (%) (Auto) 14.5 % 20.3 % 14.1 % Monocytes (%) (Auto) 5.9 % 9.0 % 7.3 % Eosinophils (%) (Auto) 3.2 % 4.4 % 3.7 % Basophils (%) (Auto) 0.5 % 0.8 % 0.4 % Neutrophils # (Auto) 6.2 TH/MM3 5.3 TH/MM3 6.2 TH/MM3 Lymphocytes # (Auto) 1.2 TH/MM3 1.7 TH/MM3 1.2 TH/MM3 Monocytes # (Auto) 0.5 TH/MM3 0.7 TH/MM3 0.6 TH/MM3 Eosinophils # (Auto) 0.3 TH/MM3 0.4 TH/MM3 0.3 TH/MM3 Basophils # (Auto) 0.0 TH/MM3 0.1 TH/MM3 0.0 TH/MM3 CBC Comment DIFF FINAL DIFF FINAL DIFF FINAL Differential Comment Prothrombin Time 11.0 SEC Prothromb Time International Ratio 1.1 RATIO Activated Partial Thromboplast Time 24.7 SEC Blood Urea Nitrogen 26 MG/DL 20 MG/DL Creatinine 1.88 MG/DL 1.61 MG/DL Random Glucose 324 MG/DL 117 MG/DL Total Protein 8.5 GM/DL Albumin 4.1 GM/DL Calcium Level 9.1 MG/DL 8.5 MG/DL Alkaline Phosphatase 54 U/L Aspartate Amino Transf (AST/SGOT) 26 U/L Alanine Aminotransferase (ALT/SGPT) 11 U/L Total Bilirubin 0.4 MG/DL Sodium Level 134 MEQ/L 139 MEQ/L Potassium Level 3.9 MEQ/L 4.0 MEQ/L Chloride Level 99 MEQ/L 107 MEQ/L Carbon Dioxide Level 29.2 MEQ/L 28.8 MEQ/L Anion Gap 6 MEQ/L 3 MEQ/L Estimat Glomerular Filtration Rate 34 ML/MIN 41 ML/MIN Lipase 82 U/L Urine Color YELLOW Urine Turbidity CLEAR Urine pH 5.0 Urine Specific [place] 1.021 Urine Protein TRACE mg/dL Urine Glucose (UA) 1000 mg/dL Urine Ketones NEG mg/dL Urine Occult Blood TRACE Urine Nitrite NEG Urine Bilirubin NEG Urine Urobilinogen LESS THAN 2.0 MG/DL Urine Leukocyte Esterase NEG Urine RBC LESS THAN 1 /hpf Microscopic Urinalysis Comment CULT NOT INDICATED Imaging Last Impressions Chest X-Ray 05/05/17 6324 Signed Impressions: Service Date/Time: Friday, May 05, 2017 21:19 - CONCLUSION: 1. 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 Findings similar to October 18. Hermilo Aguilar MD Abdomen X-Ray 05/05/17 0000 Signed Impressions: Service Date/Time: Friday, May 05, 2017 21:22 - CONCLUSION: 1. No acute findings. Postsurgical change as above. Small right effusion. Hermilo Aguilar MD Objective Remarks GENERAL: This is a well-nourished, well-developed patient, in no apparent distress. CARDIOVASCULAR: Regular rate and rhythm RESPIRATORY: Clear to auscultation. Breath sounds equal bilaterally. GASTROINTESTINAL: Abdomen soft, non-tender, nondistended. Normal active bowel sounds MUSCULOSKELETAL: Extremities without clubbing, cyanosis, or edema. NEURO: Awake and alert. Procedures Colonoscopy 05/07/17 A/P Problem List: (1) Rectal bleeding ICD Codes: K62.5 - Hemorrhage of anus and rectum Status: Acute Plan: Rectal bleeding Patient reports he had bright red rectal bleeding which started 2 days ago and then had a second episode of rectal bleeding with continual dripping of blood per rectum yesterday therefore he presented to the emergency department Patient's hemoglobin upon admission 15.5 repeat 13.8 (05/06) -> 13.4 (05/07) Vital signs stable Fecal occult Positive in emergency department Hold aspirin and Plavix IV fluids Protonix 40 mg IV twice a day Stable hemoglobin and hematocrit stable Consult gastroenterology S/P colooscopy (05/07) colonoscopy revealed: 1. Moderate sized internal hemorrhoids, otherwise normal colon exam GI recommendations High fiber diet return 10 years Colonoscop Supportive care Monitor CKD admission BUN 26 creatinine 1.88, estimated GFR 34 Repeat creatinine 1.61 Baseline BUN in the 20s, creatinine around 1.6, and GFR high 30s to low 40s Hypotension Continue patient's home midodrine 5 mg twice a day Parkinson's disease Continue patient's carbidopa levodopa Diabetes mellitus Patient at home takes Tradjenta 5 mg by mouth daily, glipizide 10 mg by mouth twice a day we'll hold at this time as patient is currently on clear liquid diet and likely will become nothing by mouth Accu-Cheks before meals at bedtime with sliding scale insulin coverage BPH Continue patient's home Flomax Obstructive sleep apnea Patient may use home CPAP device DVT prophylaxis with SCDs avoid chemical DVT prophylaxis due to rectal bleeding Plan to DC patient home today in stable condition on diabetic diet with HHC and home health PT. Patient to follow up with PCP Dr. Carl in one week and GI in 2 weeks (2) HTN (hypertension) ICD Codes: I10 - Essential (primary) hypertension Status: Chronic (3) Parkinson disease ICD Codes: G20 - Parkinson's disease Status: Chronic (4) Diabetes mellitus ICD Codes: E11.9 - Diabetes mellitus Status: Chronic (5) RASHMI (obstructive sleep apnea) ICD Codes: G47.33 - Obstructive sleep apnea (adult) (pediatric) Status: Chronic Assessment and Plan Patient examined. Assessment and plan formulated with Nilda Serrano PA-C. I agree with the above. rectal bleed. internal hemorrhoids. hgb stable d/c home. Nilda Serrano May 07, 2017 10:03 Ye Phillips MD May 07, 2017 16:00
[2017-05-07] MEDS: PANTOPRAZOLE SODIUM 40 MG VIAL IV PUSH SCH (10:05)
[2017-05-07] MEDS: MULTIVITAMIN-OPHTHALMIC 1 TAB PO SCH (10:06)
[2017-05-07] MEDS: GABAPENTIN 300 MG CAP PO SCH ×2 (10:06→13:09)
[2017-05-07] MEDS: MIDODRINE 5 MG TAB PO SCH (10:06)
[2017-05-07] MEDS: VENLAFAXINE HCL XR 75 MG CAP PO SCH (10:06)
[2017-05-07] MEDS: TAMSULOSIN HCL 0.4 MG CAP PO SCH (10:06)
[2017-05-07 12:00] VITALS: BP 111/61; PULSE 62; RESP 17; TEMP 96.8; O2SAT 98
[2017-05-07] MEDS ORDERED: LIDOCAINE HCL 1% PF 5 ML SYRINGE OTHER ONE (12:00)
[2017-05-07] MEDS ORDERED: PROPOFOL 200 MG/20 ML AMP IV ONE (12:00)
[2017-05-07] MEDS ORDERED: ePHEDrine/NS 25 MG/5 ML SYRINGE IV ONE (12:00)
[2017-05-07] MEDS ORDERED: PHENYLEPH/NS 1000 MCG/10 ML SYR IV ONE (12:00)
[2017-05-07 16:00] VITALS: BP 102/57; PULSE 70; RESP 18; TEMP 96.5; O2SAT 96
== END 2017-05-07 17:17 | disposition home or self-care (01) ==
LOC: NEPC 18:02 → NEDA 21:14 → NEPHCDU 22:19
PROVIDERS: ADMIT Hospitalist; ATTEND Hospitalist
DX: K64.8 Other hemorrhoids (principal); G20 Parkinson's disease; I13.0 Hypertensive heart and chronic kidney disease with heart failure and stage 1 through stage 4 chronic kidney disease, or unspecified chronic kidney disease; I50.9 Heart failure, unspecified; N18.9 Chronic kidney disease, unspecified; N17.9 Acute kidney failure, unspecified; I25.10 Atherosclerotic heart disease of native coronary artery without angina pectoris; I25.2 Old myocardial infarction; K21.9 Gastro-esophageal reflux disease without esophagitis; E11.65 Type 2 diabetes mellitus with hyperglycemia; E78.5 Hyperlipidemia, unspecified; J44.9 Chronic obstructive pulmonary disease, unspecified; H91.90 Unspecified hearing loss, unspecified ear; G47.33 Obstructive sleep apnea (adult) (pediatric); N40.0 Benign prostatic hyperplasia without lower urinary tract symptoms; Z95.1 Presence of aortocoronary bypass graft; Z79.84 Long term (current) use of oral hypoglycemic drugs; Z79.82 Long term (current) use of aspirin; Z95.2 Presence of prosthetic heart valve; Z77.090 Contact with and (suspected) exposure to asbestos
CPT/HCPCS: 00811; 45378; 71045; 74018; 80048; 80053; 81001; 82948; 83690; 85025; 85610; 85730; 93005; 96361; 96365; 96366; 96372; 96375; 96376; 97110; 97116; 97163; 99285; C9113; G0378; G8987; G8988; J1815; J2370; J3480; J7030